=== PATIENT | male | born 1965 | race Caucasian/White ===

== ENCOUNTER 2018-09-14 08:35 | Inpatient (IN) ==
[2018-09-14] MEDS ORDERED: NS 2,000 ML ONE (09:01)
[2018-09-14] MEDS ORDERED: ASPIRIN PO ONE (09:02)
[2018-09-14] MEDS ORDERED: NS 1,000 ML IV ONE ×2 (09:04→12:59)
[2018-09-14 09:18] LABS: BASO# 0.03 X1000 (0.0-0.2); BASO% 0.2 % (0.0-0.8); EOS# 0.03 X1000 (0.0-0.7); EOS% 0.2 % (0.0-10.0); HEMATOCRIT 36.3 % (42.0-52.0); HEMOGLOBIN 11.9 g/dL (14.0-18.0); IMM GRAN# 0.06 X1000 (0.0-0.04); IMM GRAN% 0.3 % (0.0-0.5); LYMPH# 1.77 X1000 (1.2-3.4); LYMPH% 10.3 % (20.5-51.1); MCH 28.6 PG (27-31); MCHC 32.8 g/dL (33-37); MCV 87.3 FL (81-99); MONO# 1.58 X1000 (0.11-0.59); MONO% 9.2 % (1.7-9.3); MPV 8.8 FL (7.4-10.4); NEUT# 13.68 X1000 (1.4-6.5); NEUT% 79.8 % (42.2-75.2); PLT 281 X1000 (130-400); RBC 4.16 XMIL (4.7-6.1); RDW 12.9 % (11.5-14.5); WBC 17.15 X1000 (4.8-10.8)
[2018-09-14 09:20] LABS: ALLEN TEST YES; BE -2.5 mmoll (-3.0-3.0); BLOOD TYPE ARTERIAL; HCO3-(ACT) 22.9 mmoll (20.0-26.0); O2HB 94.2 % (95.0-99.0); PCO2(98.6) 34 mmHg (35-45); PO2(98.6) 103 mmHg (60-100); SAMPLE BLOOD; SAO2 99.5 % (95.0-100.0); pH(98.6) 7.41 (7.35-7.45)
[2018-09-14 09:21] LABS: MODALITY PRB
[2018-09-14 09:28] LABS: INR 1.13; PROTIME 15.5 Seconds (11.0-16.0)
[2018-09-14 09:29] LABS: PTT 35.9 Seconds (22.3-41.8)
[2018-09-14 09:37] LABS: AGAP 14; ALB/GLOB RATIO 1.5; ALBUMIN 3.8 g/dL (3.5-5.0); ALKALINE PHOSPHATASE 90 U/L (32-122); BUN 16 mg/dL (8-22); CALCIUM 8.2 mg/dL (8.8-10.2); CHLORIDE 99 mmol/L (98-107); CK PROFILE 101 U/L (24-204); COSMO 270; CREATININE 1.2 mg/dL (0.7-1.2); ESTIMATED GFR > 60; GLUCOSE 104 mg/dL (70-104); GOT 28 U/L (10-34); GPT 9 U/L (10-44); MAGNESIUM 1.9 mg/dL (1.5-2.7); POTASSIUM 4.1 mmol/L (3.5-5.1); SODIUM 134 mmol/L (136-145); TCO2 21 mmol/L (25-35); TOTAL BILIRUBIN 0.69 mg/dL (0.20-1.00); TOTAL PROTEIN 6.4 g/dL (6.3-8.3)
--- NOTE | 2018-09-14 10:52 | EKG Report ---
Test Performed on : 09/14/2018 08:44:37 AM Test Reason : left chest pain, SOB Blood Pressure : / mmHG Vent. Rate : 078 BPM Atrial Rate : 078 BPM P-R Int : 118 ms QRS Dur : 090 ms QT Int : 418 ms P-R-T Axes : 047 -01 011 degrees QTc Int : 476 ms Normal sinus rhythm. Nonspecific ST abnormality Abnormal ECG When compared with ECG of 29-MAR-2018 18:28, No significant change was found Unconfirmed Result
--- NOTE | 2018-09-14 11:02 | Diag Imaging Result Doc PS360 ---
EXAM: CHEST-1 VIEW HISTORY: hypoxemia, dyspnea TECHNIQUE: Chest single view 03/29/2018 COMPARISON: None. FINDINGS: The lungs are well expanded. There are infiltrates in the mid and lower lungs. No cardiomegaly. No pleural effusions identified. Old fracture to the posterior right eighth rib. IMPRESSION: Lower lobe pneumonia. Follow-up PA and lateral recommended. Electronically signed by Markus Joiner 09/14/2018 11:00 AM
--- NOTE | 2018-09-14 11:13 | Diag Imaging Result Doc PS360 ---
EXAM: CT ANGIOGRM PULMONARY ARTERIES 09/14/2018 HISTORY: sudden CP, dyspnea, hypoxemia TECHNIQUE: This exam was performed using automated exposure control, adjustment of mA or kV according to patient size, and/or use of iterative reconstruction technique. COMMENT: 3-D MIPS were performed. There is some motion artifact. There are no central pulmonary arterial filling defects. There are patchy groundglass and interstitial opacities throughout both lungs consistent with pulmonary edema. There are coronary calcifications particularly in the left anterior descending artery. The possibility of pneumonia cannot be excluded. There are some emphysematous changes particularly in the right upper lobe. There is a partially calcified nodule in the right upper lobe on image 70 measuring 16 mm in diameter. There are no previous CT examinations however this nodule was apparently present on the previous chest radiograph of 07/10/2017. There are some nonspecific appearing prevascular nodes some of which exceeds 12 mm in diameter. There is right paratracheal and aorticopulmonary window adenopathy as well as enlarged nodes in both shani and the subcarina. One right paratracheal node measures over 2.2 cm on image 53. There is no evidence of acute disease in the visualized portion of the abdomen. There is an ununited fracture of the posterior right eighth rib. There are some degenerative disc changes in the thoracic spine. IMPRESSION: Pulmonary edema plus minus pneumonia. Mediastinal and hilar adenopathy. The possibility of an atypical pneumonia should be considered. Electronically signed by Shay Sinha 09/14/2018 11:10 AM
[2018-09-14] MEDS ORDERED: LEVAQUIN 500 MG/D5W 500 MG/100 ML IVPB IV ONE (12:10)
--- NOTE | 2018-09-14 12:59 | PROVIDER DOCUMENTATION ---
This chart was entered by Kathy Helton Scribe, acting as scribe for Carlos Claudio MD. HPI-Respiratory General - General Chief Complaint: Shortness of Breath Stated Complaint: CANT BREATH Time Seen by Provider: 09/14/18 08:53 Source: patient Allergies/Adverse Reactions: Patient Allergies Allergy/AdvReac Type Severity Reaction Status Date / Time Penicillins Allergy Severe ANAPHYLAXIS Verified 03/29/18 19:47 Sulfa (Sulfonamide Allergy Intermediate SWELLING Verified 03/29/18 19:47 Antibiotics) Home Medications: Home Medication List Medication Instructions Recorded Confirmed Last Taken Type Buprenorphine HCl/Naloxone HCl 1 film PO BID 07/10/17 03/29/18 03/29/18 07:30 History [Suboxone 8 mg/2 mg Sl Film] Lamotrigine 100 mg PO DAILY 07/10/17 03/29/18 03/29/18 07:30 History Lisinopril 20 mg PO DAILY 07/10/17 03/29/18 03/29/18 07:30 History Clonazepam 1 mg PO DAILY 03/29/18 03/29/18 03/28/18 History Fluoxetine HCl 60 mg PO DAILY 03/29/18 03/29/18 03/29/18 07:30 History Gabapentin 800 mg PO 4XDAY 03/29/18 03/29/18 03/29/18 07:30 History Hydroxyzine [Atarax] 50 mg PO BID 03/29/18 03/29/18 03/29/18 07:30 History Olanzapine 15 mg PO HS PRN PRN 03/29/18 03/29/18 03/25/18 History - History of Present Illness-Resp Nature of Presenting Problem: Patient is a 53 year old male who presents with shortness of breath and left posterior shoulder pain that started this morning. Denies history of heart and lung disease. Patient had a recent brain MRI done which resulted as normal. Patient does not report chest pain. Quality of Pain: reports: tightness Severity in ED: reports: mild Onset/Duration: reports: this morning Timing: reports: still present Cough Quality/Degree: reports: no cough Current Respiratory Medication Therapy: Initiated see nurses note Associated Symptoms: reports: shortness of breath, other (left posterior s houlder pain) Similar Symptoms Previously?: No Recently seen or treated by another doctor?: No Review of Systems - Adult - REVIEW OF SYSTEMS - ADULT Constitutional: reports: no symptoms reported. denies: chills, fever, fatique Eyes: reports: no symptoms reported Ears, Nose, Mouth & Throat: reports: no symptoms reported Cardiovascular: reports: no symptoms reported. denies: chest pain, heart murmur, irregular heart rate Respiratory: reports: see HPI, shortness of breath. denies: cough, wheezing Gastrointestinal: reports: no symptoms reported Genitourinary: reports: no symptoms reported Musculoskeletal: reports: see HPI, other (left posterior shoulder pain). den ies: back pain, muscle aches, neck pain Integumentary: reports: no symptoms reported Neurological: reports: no symptoms reported Psychiatric: reports: no symptoms reported Endocrine: reports: no symptoms reported Hematologic/Lymphatic: reports: no symptoms reported Allergic/Immunologic: reports: no symptoms reported All Other Systems: Reviewed and Negative Past History - Adult - PAST MEDICAL HISTORY-ADULT Review of Records: reports: Nursing Assessment Review, Medications Reviewed, Social history reviewed & non-contributory. Major Childhood Illnesses: reports: denies history Cardiovascular: reports: HTN Respiratory: reports: denies history Gastrointestinal: reports: GERD Obstetrical/Gynecological: reports: denies history Genitourinary: reports: denies history Musculoskeletal: reports: chronic pain, denies history Neurological: reports: headaches/migraines Psychiatric: reports: bipolar, depression Endocrine/Immune: reports: denies history Other Conditions: reports: denies history - PRIOR SURGERIES/PROCEDURES Surgical/Procedure History: reports: tonsillectomy, orthopedic (extremity) (shoulder), other (arthroscopy) - IMMUNIZATION STATUS Childhood Immunizations: See Nurse Assessment Flu Vaccine: See Nurse Assessment - FAMILY HISTORY Family History: reviewed, not pertinent - SOCIAL HISTORY Smoking: cigarettes, greater than 1 pack/day Provider spent 3-5 mins advising pt. on dangers of tobacco.: Discussed manners to quit use, and f/u contacts for add'l counseling. Substance Use: denies Living Situation: family Physical Exam-General - PHYSICAL EXAM-ADULT Initial Vital Signs Reviewed: Yes - CONSTITUTIONAL General Appearance: appears well, alert, no apparent distress. negative: lethargic, slow to respond - RESPIRATORY Respiratory: chest non-tender, lungs clear, normal breath sounds. negative: crackles, rhonchi - CARDIOVASCULAR Cardiovascular: normal peripheral pulses, regular rate, rhythm. negative: tachycardia, systolic murmur - GASTROINTESTINAL (ABDOMEN) Abdominal Exam: normal bowel sounds, non tender, soft. negative: guarding, rebound - MUSCULOSKELETAL Extremity: non-tender, normal inspection. negative: deformity, erythema, swelling - SKIN Integumentary: normal color, normal turgor, warm/dry. negative: cyanosis, ecc hymosis, erythema, jaundice - NEUROLOGIC Neurologic: grossly normal - PSYCHIATRIC Psych/Mental Status: normal mood/affect, oriented x 3. negative: paranoid, tearful Progress - PLAN OF CARE/RESULTS Progress/Plan/Lab Results: Vital Signs - 8 hr 09/14/18 08:50 09/14/18 08:58 09/14/18 09:05 Pulse Rate 84 92 H 90 Respiratory Rate 20 28 H 22 Blood Pressure 71/45 68/42 68/42 O2 Sat by Pulse Oximetry 73 L 91 L 90 L 09/14/18 09:06 09/14/18 09:18 09/14/18 09:20 Pulse Rate 83 85 Respiratory Rate 23 17 19 Blood Pressure 74/41 O2 Sat by Pulse Oximetry 92 L 93 L 93 L 09/14/18 09:25 09/14/18 09:30 09/14/18 09:31 Pulse Rate 88 82 97 H Respiratory Rate 20 27 H 22 Blood Pressure 74/41 69/46 73/52 O2 Sat by Pulse Oximetry 93 L 88 L 09/14/18 09:32 09/14/18 09:33 09/14/18 09:36 Pulse Rate 89 91 H 80 Respiratory Rate 17 27 H 17 Blood Pressure 72/52 66/38 O2 Sat by Pulse Oximetry 91 L 91 L 92 L 09/14/18 09:40 09/14/18 09:41 09/14/18 09:46 Pulse Rate 84 82 91 H Respiratory Rate 18 17 25 H Blood Pressure 73/45 74/47 O2 Sat by Pulse Oximetry 92 L 95 94 L 09/14/18 10:01 09/14/18 11:01 09/14/18 11:25 Pulse Rate 73 90 76 Respiratory Rate 18 23 17 Blood Pressure 73/42 66/43 76/45 O2 Sat by Pulse Oximetry 97 95 93 L Laboratory Results - last 24 hr 09/14/18 09/14/18 09/14/18 08:54 08:54 08:54 WBC 17.15 H RBC 4.16 L Hgb 11.9 L Hct 36.3 L MCV 87.3 MCH 28.6 MCHC 32.8 L RDW Std Deviation 12.9 Plt Count 281 MPV 8.8 Immature Gran % (Auto) 0.3 Neut % (Auto) 79.8 H Lymph % (Auto) 10.3 L [place] % (Auto) 9.2 Eos % (Auto) 0.2 Baso % (Auto) 0.2 Immature Gran # (Auto) 0.06 H Neut # (Auto) 13.68 H Lymph # (Auto) 1.77 [place] # (Auto) 1.58 H Eos # (Auto) 0.03 Baso # (Auto) 0.03 PT INR PTT (Actin FS) Specimen Type Sample Site pH pCO2 pO2 HCO3 Base Excess Oxyhemoglobin ABG O2 Sat (Calculated) ABG O2 Saturation ABG Carboxyhemoglobin ABG Methemoglobin Rj Test A-a O2 Difference Total Hemoglobin Lactate Liter Flow Blood Gas Modality FiO2 % Sodium 134 L Potassium 4.1 Chloride 99 Carbon Dioxide 21 L Anion Gap 14 BUN 16 Creatinine 1.2 Estimated GFR/1.73 m2 > 60 BUN/Creatinine Ratio 13 Glucose 104 POC Glucose Calculated Osmolality 270 Calcium 8.2 L Magnesium 1.9 Total Bilirubin 0.69 AST 28 ALT 9 L Alkaline Phosphatase 90 Creatine Kinase 101 Troponin T Szc-[id number]-Jwfiabcrwrs Pept 853 H Total Protein 6.4 Albumin 3.8 Globulin 2.6 Albumin/Globulin Ratio 1.5 Plasma/Serum Ethyl Alc 09/14/18 09/14/18 09/14/18 08:54 08:54 08:54 WBC RBC Hgb Hct MCV MCH MCHC RDW Std Deviation Plt Count MPV Immature Gran % (Auto) Neut % (Auto) Lymph % (Auto) [place] % (Auto) Eos % (Auto) Baso % (Auto) Immature Gran # (Auto) Neut # (Auto) Lymph # (Auto) [place] # (Auto) Eos # (Auto) Baso # (Auto) PT 15.5 INR 1.13 PTT (Actin FS) 35.9 Specimen Type Sample Site pH pCO2 pO2 HCO3 Base Excess Oxyhemoglobin ABG O2 Sat (Calculated) ABG O2 Saturation ABG Carboxyhemoglobin ABG Methemoglobin Rj Test A-a O2 Difference Total Hemoglobin Lactate Liter Flow Blood Gas Modality FiO2 % Sodium Potassium Chloride Carbon Dioxide Anion Gap BUN Creatinine Estimated GFR/1.73 m2 BUN/Creatinine Ratio Glucose POC Glucose Calculated Osmolality Calcium Magnesium Total Bilirubin AST ALT Alkaline Phosphatase Creatine Kinase Troponin T < 0.010 Qyj-X-Ztpelealket Pept Total Protein Albumin Globulin Albumin/Globulin Ratio Plasma/Serum Ethyl Alc 09/14/18 09/14/18 08:55 09:00 WBC RBC Hgb Hct MCV MCH MCHC RDW Std Deviation Plt Count MPV Immature Gran % (Auto) Neut % (Auto) Lymph % (Auto) [place] % (Auto) Eos % (Auto) Baso % (Auto) Immature Gran # (Auto) Neut # (Auto) Lymph # (Auto) [place] # (Auto) Eos # (Auto) Baso # (Auto) PT INR PTT (Actin FS) Specimen Type ARTERIAL Sample Site R RADIAL pH 7.41 pCO2 34 L pO2 103 H HCO3 22.9 Base Excess -2.5 Oxyhemoglobin 94.2 L ABG O2 Sat (Calculated) 16.0 ABG O2 Saturation 99.5 ABG Carboxyhemoglobin 4.30 H ABG Methemoglobin 1.0 Rj Test YES A-a O2 Difference 425.0 Total Hemoglobin 12.0 Lactate 1.20 Liter Flow 15.0 Blood Gas Modality PRB FiO2 % 80.0 Sodium Potassium Chloride Carbon Dioxide Anion Gap BUN Creatinine Estimated GFR/1.73 m2 BUN/Creatinine Ratio Glucose POC Glucose 117 H Calculated Osmolality Calcium Magnesium Total Bilirubin AST ALT Alkaline Phosphatase Creatine Kinase Troponin T [id number]-Ibspbaojrwf Pept Total Protein Albumin Globulin Albumin/Globulin Ratio Plasma/Serum Ethyl Alc Orders Category Date Time Status Cardiac Monitoring DIRECTED Care 09/14/18 09:02 Active Oxygen Therapy- ED Nursing DIRECTED Care 09/14/18 09:02 Active Saline Loc NOW Care 09/14/18 09:02 Active CHEST-1 VIEW [RAD] Stat Exams 09/14/18 10:[address] ANGIOGRM PULMONARY ARTERIES [CT] Stat Exams 09/14/18 10:15 Completed ABG [RESP] Routine Lab 09/14/18 09:00 Completed ALCOHOL BLOOD Stat Lab 09/14/18 08:54 Completed BLOOD CULTURE [BLDCUL] Stat Lab 09/14/18 12:10 Uncollected CBC WITH ELECTRONIC DIFF [HEME] Stat Lab 09/14/18 08:54 Completed CK PROFILE [SP CHEM] Stat Lab 09/14/18 08:54 Completed COMPREHENSIVE METABOLIC PANEL [CHEM] Stat Lab 09/14/18 08:54 Completed LACTATE, PLASMA [CHEM] Stat Lab 09/14/18 12:10 Uncollected MAGNESIUM [CHEM] Stat Lab 09/14/18 08:54 Completed PRO B-NATRIURETIC PEPTIDE Stat Lab 09/14/18 08:54 Completed PROTIME WITH INR [COAG] Stat Lab 09/14/18 08:54 Completed PTT [COAG] Stat Lab 09/14/18 08:54 Completed TROPONIN T Stat Lab 09/14/18 08:54 Completed URINALYSIS W/POSS RFLX CULT [URINALYSIS] Stat Lab 09/14/18 09:04 Uncollected URINE DRUG SCREEN Stat Lab 09/14/18 09:04 Uncollected 0.9% Sodium Chloride Inj [Ns] 1,000 ml Med 09/14/18 09:01 Discontinued .ROUTE As directed 0.9% Sodium Chloride Inj [Ns] 1,000 ml Med 09/14/18 09:04 Discontinued IV 999 mls/hr Aspirin Med 09/14/18 09:02 Discontinued 325 mg PO NOW ONE Levofloxacin 500 mg/D5w [Levaquin 500 mg/D5w] Med 09/14/18 12:10 Active 500 mg in 100 ml IV NOW CP/SOB/Palp >45 yrs of Age Stat Oth 09/14/18 09:02 Ordered EKG [EKG] Stat Ther 09/14/18 09:02 Draft Result Diagrams: 09/14/18 08:54 09/14/18 08:54 - EKG 1 Time of EKG reading by physician:: 08:44 EKG Read and Signed by:: Carlos Claudio EKG Interpretation (*Must complete 3 of following elements*): Abnormal Rate: 78 Rhythm: normal sinus rhythm WA Interval: normal Comments: nonspecific ST abnormality. - XRAY 1 XRAY Study: Chest Impression: See EMR Report (EXAM: CHEST-1 VIEW HISTORY: hypoxemia, dyspnea TECHNIQUE: Chest single view 03/29/2018 COMPARISON: None. FINDINGS: The lungs are well expanded. There are infiltrates in the mid and lower lungs. No cardiomegaly. No pleural effusions identified. Old fracture to the posterior right eighth rib. IMPRESSION: Lower lobe pneumonia. Follow-up PA and lateral recommended. Electronically signed by Markus Jonier 09/14/2018 11:00 AM 09/14/18 1100 Interpreting Physician: Markus Joiner MD Dictated Date/Time: 09/14/18 1058 cc: Carlos Claudio MD; Rell Singh MD) - CT/MRI 1 CT Study: Angiogram Impression: See EMR Report ( EXAM: CT ANGIOGRM PULMONARY ARTERIES 09/14/2018 HISTORY: sudden CP, dyspnea, hypoxemia TECHNIQUE: This exam was performed using automated exposure control, adjustment of mA or kV according to patient size, and/or use of iterative reconstruction technique. COMMENT: 3-D MIPS were performed. There is some motion artifact. There are no central pulmonary arterial filling defects. There are patchy groundglass and interstitial opacities throughout both lungs consistent with pulmonary edema. There are coronary calcifications particularly in the left anterior descending artery. The possibility of pneumonia cannot be excluded. There are some emphysematous changes particularly in the right upper lobe. There is a partially calcified nodule in the right upper lobe on image 70 measuring 16 mm in diameter. There are no previous CT examinations however this nodule was apparently present on the previous chest radiograph of 07/10/2017. There are some nonspecific appearing prevascular nodes some of which exceeds 12 mm in diameter. There is right paratracheal and aorticopulmonary window adenopathy as well as enlarged nodes in both shani and the subcarina. One right paratracheal node measures over 2.2 cm on image 53. There is no evidence of acute disease in the visualized portion of the abdomen. There is an ununited fracture of the posterior right eighth rib. There are some degenerative disc changes in the thoracic spine. IMPRESSION: Pulmonary edema plus minus pneumonia. Mediastinal and hilar adenopathy. The possibility of an atypical pneumonia should be considered. Electronically signed by Shay Sinha 09/14/2018 11:10 AM 09/14/18 1110 Interpreting Physician: Shay Sinha MD Dictated Date/Time: 09/14/18 1105 cc: Carlos Claudio MD; Rell Singh MD) - CONSULTS/PCP/HOSPITALIST Notification #1 *Consult/PCP/Hospitalist*: SONJA Castillo for Hospitalist Time Discussed: 12:35 Reason/Comments: Dr. Claudio consulted with Anna about patient. Consult Disposition: Admit Departure - Departure Date of Disposition Decision: 09/14/18 Time of Disposition Decision: 12:35 DIAGNOSIS: Left lower lobe pneumonia Disposition: ADMITTED INPATIENT 09 Certified Medical Emergency: Emergent Condition: Stable Referrals and Follow-Ups: Rell Singh MD [Primary Care Provider] - - Critical Care Note This patient required my direct & personal management of CC.: Yes Total Time (mins): 31 Critical Care Statement: This patient required my direct personal management to treat or rule out processes, the absence of which, could potentiallly result in sudden, clinically significant life or limb threatening deterioration. Attestation - Physician/ VIN Attestation The physician spent face to face time with patient:: Yes Advanced Practice Provider documentation review:: Supervising physician onsite and consulted in the evaluation and care of this patient. The physician did have a face to face encounter with the patient. This chart was documented by the indicated scribe, (Kathy Helton Scribe) and accurately reflects the services I performed and decisions made by me, Carlos Claudio MD, as attested by the provider's signature.
[2018-09-14 13:32] LABS: URINE SOURCE CLEAN CATCH
[2018-09-14 13:40] LABS: BILIRUBIN URINE NEGATIVE (NEGATIVE); BLOOD URINE SMALL (NEGATIVE); COLOR YELLOW; GLUCOSE URINE NEGATIVE (NEGATIVE); KETONE URINE NEGATIVE (NEGATIVE); LEUKOCYTES URINE SMALL (NEGATIVE); NITRITE URINE NEGATIVE (NEGATIVE); PH URINE 5.5; PROTEIN URINE TRACE mg/dL (NEGATIVE); SP GRAVITY URINE 1.044; TURBIDITY URINE CLEAR (CLEAR); UROBILINOGEN URINE NORMAL (NORMAL)
[2018-09-14 13:41] LABS: UR EPITHELIAL CELLS <10 /HPF (<10); URINE BACTERIA NEGATIVE /HPF; URINE WBC <10 /HPF (<10)
[2018-09-14 14:08] LABS: UR AMPHETAMINES QUAL NONE DETECTED (NONE DETECT); UR BARBITUATES QUAL NONE DETECTED (NONE DETECT); UR BENZODIAZEPIN QUAL NONE DETECTED (NONE DETECT); UR CANNABINOIDS QUAL NONE DETECTED (NONE DETECT); UR COCAINE QUAL NONE DETECTED (NONE DETECT); UR METHADONE QUAL NONE DETECTED (NONE DETECT); UR OPIATES QUAL NONE DETECTED (NONE DETECT); UR OXYCODONE QUAL NONE DETECTED (NONE DETECT); UR PCP QUAL NONE DETECTED (NONE DETECT)
--- NOTE | 2018-09-14 14:40 | HISTORY AND PHYSICAL ---
PRIMARY CARE PHYSICIAN: Dr. Rell Singh. CHIEF COMPLAINT: Sudden onset of shortness of breath that began this morning. Also noted he had a fall yesterday with some posterior left shoulder pain. HISTORY OF PRESENTING ILLNESS: This is a 53-year-old male who is sitting on the end of the bed and answering questions appropriately, presents to [facility] with complaints of a sudden onset of shortness of breath that began today. States yesterday he had some lightheadedness and felt "wobbly" and had a fall and now states he has some left posterior shoulder pain. When he arrived to the emergency room his blood pressure was 71/45. He was saturating 73% on room air. His white blood cell count was 17.15. Serum alcohol level showed none detected. We did a chest x-ray that showed left lower lobe pneumonia. We did go ahead and do a pulmonary arteriogram that showed pulmonary edema plus minus pneumonia. The possibility of atypical pneumonia should be considered. He has received 1 L of normal saline bolus and currently his blood pressure remains low at 76/45 so he will receive another liter of normal saline and will be admitted for further evaluation and treatment. PAST MEDICAL HISTORY: Of depression, opioid addiction, GERD and hypertension. PAST SURGICAL HISTORY: A right rotator cuff repair and a tonsillectomy. FAMILY HISTORY: Reviewed and noncontributory. SOCIAL HISTORY: Currently lives with family. Smokes a pack of cigarettes a day and has done so for approximately 40 years and denies any alcohol or illicit drug use. ALLERGIES: Penicillin and sulfa drugs. HOME MEDICATIONS: A current list will need to be obtained, reviewed and restarted as appropriate. We will place an order for nursing to update and confirm home medications. LABORATORY DATA: Showed a white blood cell count of 17.15, a hemoglobin of 11.9, hematocrit 36.3, platelets 281,000, PT and INR of 15.5 and 1.13. ABG with a pH of 7.41, pCO2 34, PO2 103, bicarb 22.9 and this was on a 50% partial rebreather. Sodium of 134, potassium 4.1, chloride 99, CO2 21, BUN of 16, creatinine 1.2, glucose 104, magnesium 1.9. Cardiac enzyme was negative. ProBNP of 853 . Serum plasma alcohol level showed none detected. Chest x-ray showed bilateral lower lobe pneumonia and pulmonary arteriogram showed pulmonary edema plus or minus pneumonia, mediastinal and hilar adenopathy and the possibility of an atypical pneumonia should be considered. REVIEW OF SYSTEMS: He denied any fever, chills, blurred vision, dizziness. He did state he had some lightheadedness and feeling "wobbly" yesterday. Denied any chest pain, coughing. He was positive for shortness of breath. He denied any abdominal pain, constipation, diarrhea, burning or hurting with urination. PHYSICAL EXAMINATION: On arrival he had a pulse of 84, respirations 20, blood pressure 71/45, saturating 73% on room air. Currently his blood pressure is 76/45 and he saturating 93% on a nonrebreather. GENERAL: This is a 53-year-old male who is sitting on the side of the bed and answers questions appropriately. HEENT: Normocephalic, atraumatic. Normal ENT inspection. Oropharynx and nares are clear. Pupils are equal, round, and reactive to light and accommodation. Extraocular movements are intact. NECK: Normal inspection, normal range of motion. LUNGS: With decreased breath sounds to bilateral bases but equal lung expansion, chest wall movement noted. HEART: Regular rate and rhythm. No murmurs, rubs, or gallops. ABDOMEN: Soft, nontender, nondistended. Bowel sounds are present x4 quadrants. MUSCULOSKELETAL: He has 5/5 strength x4 extremities. NEUROLOGICAL: The cranial nerves 2-12 appear grossly intact. ASSESSMENT: 1. Bilateral pneumonia. 2. An acute hypoxic respiratory failure. 3. Leukocytosis secondary to #1. 4. Hypotension. 5. Tobacco abuse. PLAN: He will be admitted to intensive care unit [facility]. Will place him on O2 per protocol, DuoNeb q.4 hours, Levaquin 500 mg IV q.24, normal saline at 150 mL an hour. Apply SCDs for DVT prophylaxis. Healthy heart diet, incentive spirometry, telemetry. We need to update and confirm home medications and then will review and restart as appropriate. He has a plasma lactate that is pending, a urinalysis that is pending and a urine drug screen that is pending at this time. Further orders after being seen by attending. Dictated by SONJA Callahan for Lizandro Garrison MD cc: MD Lizandro Dickson MD
[2018-09-14] MEDS ORDERED: NS 1,000 ML IV SCH (15:35)
[2018-09-14 16:14] LABS: BASO# 0.04 X1000 (0.0-0.2); BASO% 0.2 % (0.0-0.8); EOS# 0.14 X1000 (0.0-0.7); EOS% 0.8 % (0.0-10.0); HEMATOCRIT 36.7 % (42.0-52.0); HEMOGLOBIN 11.8 g/dL (14.0-18.0); IMM GRAN# 0.08 X1000 (0.0-0.04); IMM GRAN% 0.5 % (0.0-0.5); LYMPH# 2.06 X1000 (1.2-3.4); LYMPH% 12.4 % (20.5-51.1); MCH 28.8 PG (27-31); MCHC 32.2 g/dL (33-37); MCV 89.5 FL (81-99); MONO# 1.48 X1000 (0.11-0.59); MONO% 8.9 % (1.7-9.3); MPV 8.7 FL (7.4-10.4); NEUT# 12.85 X1000 (1.4-6.5); NEUT% 77.2 % (42.2-75.2); PLT 249 X1000 (130-400); RDW 13.2 % (11.5-14.5); WBC 16.65 X1000 (4.8-10.8)
[2018-09-14] MEDS: DUONEB (A & A) INH SCH ×3 (16:15→23:30)
[2018-09-14 16:34] LABS: AGAP 8; BUN 16 mg/dL (8-22); CALCIUM 8.2 mg/dL (8.8-10.2); CHLORIDE 102 mmol/L (98-107); COSMO 270; CREATININE 1.1 mg/dL (0.7-1.2); ESTIMATED GFR > 60; GLUCOSE 104 mg/dL (70-104); POTASSIUM 4.6 mmol/L (3.5-5.1); SODIUM 134 mmol/L (136-145); TCO2 24 mmol/L (25-35)
[2018-09-14] MEDS ORDERED: VANCOMYCIN IV PER PHARMACY MISC SCH (17:30)
--- NOTE | 2018-09-14 17:57 | HISTORY AND PHYSICAL ---
ADDENDUM: Presented to the emergency department this morning because of acute onset of shortness of breath. Upon presentation he was found to have O2 saturation of 73% on room air. Mr. Baker is a chronic smoker smokes about 2 packs per day for the past 30 years. I have reviewed all his clinical data and agree with the history and physical dictated by the nurse practitioner and the plan reflects my opinion discussed with her. Briefly Mr. Baker' physical exam shows blood pressure is 87/45, pulse is 80, respiration is 20, temperature is not charted here yet. OBJECTIVE: Mr. Baker 53-year-old gentleman he was in bed, he was in mild respiratory distress, he has a non-rebreather for oxygenation .Chest: Air entry is bilaterally reduced. There is mild prolonged expiratory phase of respiration did not really hear any wheezing or rhonchi. Patient does have barrel chest. Cardiovascular: Regular rate and rhythm. No murmurs, no rubs, no gallops. Abdomen: Is soft . Extremities: No pedal edema. MANUFACTURING TECH: Patient is awake, alert, oriented and follows basic commands. Patient laboratory data WBC is 16.65, hemoglobin is 11.8, platelet count of 249,000. Chemistry is also reviewed. Sodium is 134, rest of chemistry is completely unremarkable. Patient pro B is 854. An EKG shows a normal sinus rhythm with a rate of about 78, normal axis, no ST- segment or T-waves abnormality. A CT scan of the chest show pulmonary edema plus minus pneumonia however there is a patchy ground- glass and interstitial opacity throughout both lungs consistent with pulmonary edema. A chest x- ray did show lower lobe pneumonia. ASSESSMENT: 1. Acute hypoxemic respiratory failure. 2. Bilateral interstitial ground-glass opacities concerning for smoking-related interstitial pneumonia. Patient will be started on steroid and Pulmonary Medicine will be consulted. 3. Suspected chronic obstructive pulmonary disease, patient will be on adequate antibiotics, steroid and nebulization. 4. Persistent hypotension, patient lactate is normal. Will check his TSH and his cortisol level, will continue with adequate IV fluids, patient will be admitted to the ICU for overnight. 5. Ongoing tobacco abuse. Patient has been counseled on cessation. So in general Mr. Baker will be admitted to the ICU, will continue with the current antibiotics. He is allergic to penicillin so I have chosen aztreonam and also added vancomycin, will also add steroids and get Pulmonary Medicine to see him. I have ordered an echocardiogram to rule out any possible underlying heart failure. cc: Lizandro Garrison MD MTDD
[2018-09-14] MEDS: SOLU-MEDROL IV SCH (19:38)
[2018-09-14] MEDS: NS 1,000 ML IV SCH (19:45)
[2018-09-14] MEDS: AZACTAM 1 GM in NS 50 ML IV SCH (19:50)
[2018-09-14] MEDS ORDERED: VANCOMYCIN 2,300 MG in NS 500 ML IV ONE (20:00)
[2018-09-15] MEDS: SOLU-MEDROL IV SCH ×3 (01:56→17:43)
[2018-09-15 05:23] LABS: BASO# 0.01 X1000 (0.0-0.2); BASO% 0.1 % (0.0-0.8); HEMATOCRIT 34.6 % (42.0-52.0); HEMOGLOBIN 10.9 g/dL (14.0-18.0); IMM GRAN# 0.04 X1000 (0.0-0.04); IMM GRAN% 0.3 % (0.0-0.5); LYMPH# 0.57 X1000 (1.2-3.4); LYMPH% 4.6 % (20.5-51.1); MCH 28.4 PG (27-31); MCHC 31.5 g/dL (33-37); MCV 90.1 FL (81-99); MONO# 0.81 X1000 (0.11-0.59); MONO% 6.5 % (1.7-9.3); NEUT# 11.08 X1000 (1.4-6.5); NEUT% 88.5 % (42.2-75.2); PLT 243 X1000 (130-400); RBC 3.84 XMIL (4.7-6.1); RDW 13.2 % (11.5-14.5); WBC 12.51 X1000 (4.8-10.8)
[2018-09-15 05:36] LABS: AGAP 7; ALBUMIN 3.2 g/dL (3.5-5.0); BUN 11 mg/dL (8-22); CALCIUM 8.4 mg/dL (8.8-10.2); CHLORIDE 106 mmol/L (98-107); COSMO 277; CREATININE 0.8 mg/dL (0.7-1.2); ESTIMATED GFR > 60; GLUCOSE 172 mg/dL (70-104); LYMPHS 8 % (21-51); MONO 6 % (1-9); PHOSPHORUS 2.1 mg/dL (2.7-4.5); POTASSIUM 5.1 mmol/L (3.5-5.1); SEGS 86 % (42-75); SODIUM 137 mmol/L (136-145); TCO2 24 mmol/L (25-35)
[2018-09-15] MEDS: DUONEB (A & A) INH SCH ×5 (07:25→23:44)
[2018-09-15] MEDS: AZACTAM 1 GM in NS 50 ML IV SCH ×4 (07:27→23:56)
[2018-09-15] MEDS: NS 1,000 ML IV SCH ×2 (07:30→18:42)
[2018-09-15] MEDS ORDERED: TUMS EXTRA STRENGTH PO ONE (11:35)
[2018-09-15] MEDS: LEVAQUIN 500 MG/D5W 500 MG/100 ML IVPB IV SCH (11:50)
--- NOTE | 2018-09-15 12:44 | ECHO REPORT ---
ORDER DATE: 09/14/2018 INTERPRETING PHYSICIAN: Dr. Tate Card. ECHOCARDIOGRAPHIC MEASUREMENTS: Interventricular septum: 0.9 cm. Left ventricular posterior wall: 0.9 cm. Diastolic diameter: 6.0 cm. Left ventricular systolic diameter: 4.1 cm. Left atrium: 4.5 cm. Aorta: 3.6 cm. SUMMARY OF THE 2-DIMENSIONAL IMAGIN. Left ventricle was mildly enlarged. 2. Optison was used to assess left ventricular systolic function. 3. Left ventricular ejection fraction estimated at 60-65%. 4. There is left atrial enlargement. 5. Aortic valve leaflets are trileaflet. 6. Pulmonic valve was normal. There is trace pulmonary regurgitation. 7. Tricuspid valve was normal. 8. Mitral valve was normal. 9. There is trace mitral regurgitation, trace to mild tricuspid regurgitation. Peak velocity across the tricuspid valve was 2.3 m/sec by Doppler studies. There is no aortic stenosis or regurgitation. 10. There is no pericardial effusion or obvious intracardiac mass or thrombus seen. 11. Technically suboptimal study. cc: MD Lizandro Neri MD
[2018-09-15] MEDS: VANCOMYCIN 1,650 MG in NS 250 ML IV SCH (14:21)
--- NOTE | 2018-09-15 18:00 | PROGRESS NOTE ---
DATE: 09/15/2018 Mr. Baker was admitted last night. He presented to the emergency room. He sees Dr. Rell Singh. Was admitted this morning with onset of shortness of breath. Said it came on all of a sudden. O2 saturations were 73% on room air. Chronic smoker, smokes 2 packs a day for over 30 years. His blood pressure was 87/45, pulse 80, respirations 20 so, appeared to be in acute hypoxemic respiratory failure with bilateral interstitial ground-glass opacities concerning for smoking-related interstitial pneumonia. Started on steroid. Pulmonary Medicine was consulted. Suspect COPD. The patient was put on some antibiotics, steroid, and nebulizer. With persistent hypotension wanted to check TSH and cortisol levels. He seemed to improve quite a bit after 12 hours with some fluids. Echocardiogram done. Left ventricle mildly enlarged. Left ventricular ejection fraction 60% to 65%. There is left atrial enlargement. Atrial valve leaflets are trileaflet. Pulmonic valve was normal. Tricuspid valve was normal. Mitral valve was normal. Trace mitral regurgitation. Trace mild tricuspid regurgitation. No aortic stenosis or regurgitation. No pericardial effusion. Chest x-ray: Lower lobe pneumonia, infiltrates in the mid and lower lungs. No cardiomegaly. He is doing a lot better. I saw him about 5 o'clock this evening, and he does not want to start back his Suboxone. He would like to start everything else back up. OBJECTIVE: His temperature is 97.9 degrees, pulse 80, respirations 20, blood pressure 129/75. Pupils are equal and round. Lungs are clear in all lung miller. Cardiovascular exam with regular rhythm and rate without murmur or S3. OUTPUT: Urine output was 1200 mL yesterday. He has had about 2000 mL out today. ASSESSMENT AND PLAN: 1. Acute hypoxemic respiratory failure. Seems to improve. 2. Bilateral interstitial ground-glass opacities concerning for smoking-related interstitial pneumonia. Treating him for pneumonia. 3. Suspect chronic obstructive pulmonary disease exacerbation. Continue steroids, antibiotics, nebulizers. 4. Persistent hypotension. This is improved with fluids. 5. Ongoing tobacco use. 6. Chronic pain syndrome. He has been on Suboxone. He does not want to restart his Suboxone, but I will put him back on his other home medications. cc: Rj Broderick MD
[2018-09-15] MEDS: TYLENOL PO PRN (18:56)
[2018-09-15] MEDS: ATARAX PO SCH (21:06)
[2018-09-15] MEDS: NEURONTIN PO SCH (21:06)
[2018-09-16] MEDS: SOLU-MEDROL IV SCH ×4 (00:04→16:18)
[2018-09-16] MEDS: TYLENOL PO PRN ×4 (00:09→22:34)
[2018-09-16] MEDS: DUONEB (A & A) INH SCH ×6 (00:15→23:31)
[2018-09-16] MEDS: AZACTAM 1 GM in NS 50 ML IV SCH ×3 (05:15→22:30)
[2018-09-16] MEDS: NS 1,000 ML IV SCH ×2 (05:15→17:59)
[2018-09-16] MEDS: NEURONTIN PO SCH ×4 (09:46→22:34)
[2018-09-16] MEDS: ATARAX PO SCH ×2 (09:46→22:34)
[2018-09-16] MEDS: PRINIVIL PO SCH (09:46)
[2018-09-16] MEDS: PROZAC PO SCH (09:46)
[2018-09-16] MEDS: KLONOPIN PO SCH (09:46)
[2018-09-16] MEDS: LAMICTAL PO SCH (09:46)
[2018-09-16] MEDS: VANCOMYCIN 1,650 MG in NS 250 ML IV SCH (09:47)
[2018-09-16] MEDS: LEVAQUIN 500 MG/D5W 500 MG/100 ML IVPB IV SCH (13:56)
--- NOTE | 2018-09-16 17:00 | PROGRESS NOTE ---
DATE: 09/16/2018 SUBJECTIVE: Mr. Baker is breathing better, feels better, and he is asking to go home. I think he would like to get the Venturi nasal O2. OBJECTIVE: He remains afebrile with temperature 98.1 degrees, pulse 80, respirations 18, blood pressure 132/70. Pupils are equal and round. Lungs are clear in all lung miller. Cardiovascular exam has regular rhythm and rate without murmur or S3. Abdomen is soft. Skin is warm and dry. URINE OUTPUT: 2200 mL. ASSESSMENT AND PLAN: 1. Acute hypoxemic respiratory failure which is improved. Continue his present nasal flow. 2. Bilateral interstitial ground-glass opacities related to probably smoking-related interstitial pneumonia. Continue present antibiotics. 3. Suspect chronic obstructive pulmonary disease exacerbation. Continue steroids and nebulizer and bronchodilators. 4. Persistent hypotension. 5. Ongoing tobacco use. 6. Chronic pain syndrome. He does not want to restart his Suboxone. I think his hope is to go home. See if we can get him set up for his oxygen. He had an echocardiogram on 09/14/2018. Left ventricle is mildly enlarged. Left ventricular ejection fraction of 60% to 65%. Left atrial enlargement. Aortic valve leaflets trileaflet. Pulmonic valve normal, tricuspid valve normal, mitral valve normal with trace mitral valve regurgitation. No pericardial effusion appreciated. cc: Rj Broderick MD
[2018-09-17] MEDS: VANCOMYCIN 1,650 MG in NS 250 ML IV SCH (01:48)
[2018-09-17] MEDS: SOLU-MEDROL IV SCH ×3 (01:51→17:05)
[2018-09-17] MEDS: TYLENOL PO PRN (05:48)
[2018-09-17] MEDS: AZACTAM 1 GM in NS 50 ML IV SCH ×3 (05:48→23:10)
[2018-09-17] MEDS: DUONEB (A & A) INH SCH ×5 (07:50→23:35)
[2018-09-17] MEDS: NS 1,000 ML IV SCH ×2 (08:39→17:06)
[2018-09-17] MEDS: NEURONTIN PO SCH ×4 (08:40→23:15)
[2018-09-17] MEDS: LAMICTAL PO SCH (08:40)
[2018-09-17] MEDS: PRINIVIL PO SCH (08:40)
[2018-09-17] MEDS: KLONOPIN PO SCH (08:40)
[2018-09-17] MEDS: PROZAC PO SCH (08:40)
[2018-09-17] MEDS: ATARAX PO SCH ×2 (08:40→23:16)
[2018-09-17] MEDS: LEVAQUIN 500 MG/D5W 500 MG/100 ML IVPB IV SCH (11:46)
[2018-09-17] MEDS ORDERED: MILK OF MAGNESIA PO ONE (13:21)
[2018-09-17] MEDS ORDERED: DULCOLAX PR ONE (13:23)
--- NOTE | 2018-09-17 14:19 | PROGRESS NOTE ---
DATE: 09/17/2018 SUBJECTIVE: Mr. Baker is not breathing very comfortably. He feels like he has got a lot gas, a lot of distention in his abdomen. Has not had a bowel movement. Sitting up at the edge of the bed. OBJECTIVE: Vital signs: Temperature 98.1 degrees, pulse 100, respirations 20, blood pressure 146/100. HEENT: Pupils are equal and round. Lungs: Clear in all lungs with decreased breath sounds. Prolonged expiratory phase. He is on high-flow nasal oxygen. Extremities: No pedal edema. Abdomen: Feels distended. Genitourinary: Urine output is 800 mL. ASSESSMENT: 1. Acute hypoxemic respiratory failure which is improved. Short of breath this morning, feels like he is constipated and distended. 2. Bilateral interstitial ground-glass opacities, probably related to smoke-related interstitial pneumonia. 3. Chronic obstructive pulmonary disease with exacerbation. 4. Persistent hypertension. 5. Ongoing tobacco use. 6. Chronic pain syndrome. PLAN: We are going to try some lactulose, milk of magnesia and begin some MiraLAX as well, and we will try Dulcolax suppository to see if that will help. I am going to go ahead and order a chest x-ray, abdominal flat and upright and see what his belly looks like. He is currently on vancomycin. He is getting methylprednisone 40 mg IV q.8, Prinivil 20 mg daily, Lamictal 100 mg daily, Neurontin 800 mg 4 times a day, Klonopin 1 mg p.o. daily. cc: Rj Broderick MD
--- NOTE | 2018-09-17 16:36 | Diag Imaging Result Doc PS360 ---
EXAM: ABDOMEN FLAT/UPRIGHT INDICATION: abdominal distention TECHNIQUE: 2 views COMPARISON: No prior abdominal CT is available for comparison. FINDINGS: There are unremarkable bowel gas and stool patterns. There is no obstructive bowel pattern. There is no evidence of large volume free abdominal gas. There is no evidence of organomegaly. Dense consolidations at the lung bases seen on previous chest radiograph and chest CT are again noted. IMPRESSION: No evidence of acute abdominal pathology by plain radiograph. Electronically signed by Sree Butler 09/17/2018 4:34 PM
[2018-09-17] MEDS: BUSPAR PO SCH (17:05)
[2018-09-17] MEDS: ATIVAN IV PRN (18:53)
[2018-09-17 19:14] LABS: ALLEN TEST YES; BLOOD TYPE ARTERIAL; HCO3-(ACT) 25.4 mmoll (20.0-26.0); METHB 1.1 % (0.0-1.5); O2(CT) 16.1 mL/dL (15.0-23.0); PCO2(98.6) 42 mmHg (35-45); PO2(98.6) 53 mmHg (60-100); SAMPLE BLOOD; SAO2 89.4 % (95.0-100.0); THB 13.2 g/dL (11.5-17.4)
[2018-09-17 19:16] LABS: MODALITY NRB; O2HB 86.9 % (95.0-99.0)
[2018-09-17] MEDS ORDERED: MORPHINE IV ONE ×2 (19:25→23:45)
[2018-09-17] MEDS ORDERED: LASIX IV ONE ×2 (19:29→20:07)
--- NOTE | 2018-09-17 19:56 | Diag Imaging Result Doc PS360 ---
EXAM: CHEST-PORTABLE - 09/17/2018 HISTORY: SOB TECHNIQUE: Portable chest COMPARISON: 09/14/2018 FINDINGS: Extensive bilateral infiltrates which have increased substantially. Considerations include pulmonary edema, pneumonia, and/or adult respiratory distress syndrome. There is no large pleural effusion identified. There is no pneumothorax identified. The heart borders are partially obscured but heart size appears to be within normal limits. IMPRESSION: Extensive bilateral infiltrates which have increased substantially. Considerations include pulmonary edema, pneumonia, and/or adult respiratory distress syndrome. Electronically signed by Wilner Enciso 09/17/2018 7:54 PM
[2018-09-17 21:21] LABS: URINE SOURCE CATH
[2018-09-17 21:30] LABS: BILIRUBIN URINE NEGATIVE (NEGATIVE); BLOOD URINE MODERATE (NEGATIVE); COLOR YELLOW; GLUCOSE URINE TRACE mg/dL (NEGATIVE); KETONE URINE TRACE mg/dL (NEGATIVE); LEUKOCYTES URINE SMALL (NEGATIVE); NITRITE URINE NEGATIVE (NEGATIVE); PROTEIN URINE 50 mg/dL (NEGATIVE); SP GRAVITY URINE 1.021; TURBIDITY URINE CLEAR (CLEAR); UROBILINOGEN URINE NORMAL (NORMAL)
[2018-09-17 21:32] LABS: URINE BACTERIA NEGATIVE /HPF
[2018-09-17 21:41] LABS: UR EPITHELIAL CELLS <10 /HPF (<10)
[2018-09-17] MEDS: LACTULOSE PO SCH (23:15)
[2018-09-18] MEDS: VANCOMYCIN 1,650 MG in NS 250 ML IV SCH ×3 (00:21→20:13)
[2018-09-18] MEDS: SOLU-MEDROL IV SCH ×3 (00:25→16:18)
[2018-09-18] MEDS: ATIVAN IV PRN (02:13)
[2018-09-18] MEDS ORDERED: MUCOMYST 20% INH ONE (02:36)
[2018-09-18] MEDS ORDERED: MORPHINE IV ONE (02:37)
[2018-09-18] MEDS: DUONEB (A & A) INH PRN (03:00)
[2018-09-18] MEDS: NS 1,000 ML IV SCH (04:42)
[2018-09-18] MEDS: AZACTAM 1 GM in NS 50 ML IV SCH ×3 (05:39→20:20)
[2018-09-18] MEDS: KLONOPIN PO SCH (08:29)
[2018-09-18] MEDS: DUONEB (A & A) INH SCH ×5 (08:35→23:48)
[2018-09-18 09:38] LABS: ALLEN TEST YES; BE 4.2 mmoll (-3.0-3.0); BLOOD TYPE ARTERIAL; HCO3-(ACT) 28.1 mmoll (20.0-26.0); METHB 1.5 % (0.0-1.5); O2(CT) 14.6 mL/dL (15.0-23.0); O2HB 91.9 % (95.0-99.0); PCO2(98.6) 40 mmHg (35-45); PO2(98.6) 64 mmHg (60-100); SAMPLE BLOOD; THB 11.3 g/dL (11.5-17.4); pH(98.6) 7.46 (7.35-7.45)
[2018-09-18 09:40] LABS: MODALITY BI PAP
[2018-09-18] MEDS: CELEBREX PO SCH (10:17)
[2018-09-18] MEDS: PROZAC PO SCH (10:18)
[2018-09-18] MEDS: NEURONTIN PO SCH ×4 (10:18→20:13)
[2018-09-18] MEDS: PRINIVIL PO SCH (10:18)
[2018-09-18] MEDS: ATARAX PO SCH ×2 (10:18→20:12)
[2018-09-18] MEDS: LAMICTAL PO SCH (10:19)
[2018-09-18] MEDS: LACTULOSE PO SCH ×3 (10:29→20:13)
[2018-09-18] MEDS: BUSPAR PO SCH ×3 (10:29→16:17)
[2018-09-18] MEDS: LEVAQUIN 500 MG/D5W 500 MG/100 ML IVPB IV SCH (14:04)
[2018-09-18] MEDS ORDERED: NS 1,000 ML IV SCH (16:13)
[2018-09-18] MEDS: ZOFRAN IV PRN (16:16)
--- NOTE | 2018-09-18 16:55 | PROGRESS NOTE ---
DATE: 09/18/2018 SUBJECTIVE: Mr. Baker has moved down to the unit. He had to remain on BiPAP, having more trouble breathing. It feels like his abdomen is distended. It feels like it is mainly gas and air. OBJECTIVE: Vital Signs: Temperature is 98.1 degrees, pulse 93, respirations 15, but blood pressure was 124/91. Lungs: Clear anterolateral. Cardiovascular: Regular rhythm and rate without murmur or S3. Abdomen: Soft. Skin is warm and dry. DIAGNOSTIC DATA: We will check some labs. They have not been checked since the . Note his phosphorus was 2.1 at that time. His proBNP was 23,000. He does not appear to be volume overloaded or wet. Chest x-ray done yesterday, extensive bilateral infiltrates, which have increased substantially, and possible pulmonary edema, pneumonia, so he could also have adult respiratory distress syndrome. ASSESSMENT AND PLAN: 1. Acute hypoxemic respiratory failure. I guess it is possible he could have adult respiratory distress. His bilateral interstitial ground-glass opacities are related to smoke-related interstitial pneumonia. We will diurese him a little bit. He does not appear to have elevated central venous pressure nor do I appear to hear any rales on exam. 2. Chronic obstructive pulmonary disease with exacerbation. 3. Persistent hypertension. 4. Ongoing tobacco use. 5. Chronic pain syndrome. REVIEW OF ORDERS: He will stay on aztreonam 1 gram IV every ever 8 hour, BuSpar 10 mg t.i.d., Celebrex 200 mg daily. He is taking Klonopin 1 mg daily, Prozac 60 mg a day, gabapentin 800 mg 4 times a day, Atarax 50 mg b.i.d., lactulose 30 mL b.i.d., Lamictal 200 mg a day, Levaquin 500 mg IV every 24 hours, Prinivil 20 mg daily, methylprednisone 40 mg IV every 8 hours. We turned normal saline down to 65 mL an hour. He is on vancomycin 1.65 grams IV every 12 hours. cc: Rj Broderick MD
[2018-09-18] MEDS ORDERED: LASIX IV ONE (19:21)
--- NOTE | 2018-09-19 00:17 | CONSULTATION ---
DATE OF CONSULTATION: 09/18/2018 REQUESTING PROVIDER: Dr. Rj Broderick. REASON FOR CONSULTATION: Shortness of breath. HISTORY OF PRESENT ILLNESS: This is a 53-year-old male with a medical history of bipolar disorder, depression, gastroesophageal reflux disease, hypertension, chronic pain syndrome, and opioid addition. He presented to the ER on 09/14/2018 with sudden onset of severe shortness of breath and left posterior shoulder pain from a fall on 09/13/2018. Initial workup in the ER revealed acute hypoxic respiratory failure, bilateral pneumonia shock, leukocytosis, and tobacco abuse. He has been admitted since then for further evaluation and management. Since admission, the patient keeps requiring high concentration of oxygen. At the time of my examination, the patient is lying in bed on a BiPAP with FiO2 of 100%. His respiratory rate stays around 40s. His oxygen saturation dropped to 80s when the nurse is adjusting his facial mask or when he is talking to me. His daughter is at the bedside. The patient reports he has dizziness, constipation, palpitations at times, but denies fever, unintentional weight change, cough, wheezing, urination discomfort, or chest pain. PAST MEDICAL AND SURGICAL HISTORY: 1. Bipolar disorder. 2. Depression. 3. Gastroesophageal reflux disease. 4. Hypertension. 5. Chronic pain syndrome on Suboxone at home. 6. Opioid addition. 7. Tonsillectomy 8. Right rotator cuff repair. SOCIAL HISTORY: The patient lives at home with his son. He has smoked up to 2 packs of cigarettes daily for 40 years. Currently, he states he is ready to quit. He denies any history of alcohol or illicit drug use. FAMILY HISTORY: Positive for cancer and congestive heart failure. ALLERGIES: Penicillins, sulfa. REVIEW OF SYSTEMS: A 10-point review of systems was conducted, and the pertinent is listed within the HPI. Otherwise noncontributory. PHYSICAL EXAMINATION: Vital Signs: Temperature 97.7, blood pressure 121/78, pulse 105, respiratory rate 18, oxygen saturation 94% on BiPAP with FiO2 of 100%. General: Chronically ill appearing, in moderate respiratory distress. HEENT: Atraumatic. Trachea midline. Mucosa pink and slightly dry. Respiratory: Labored, but no accessory muscles used. Symmetrical excursion. Auscultation reveals diminished breathing sounds bilaterally and only inspiratory crackles bibasilarly. Cardiovascular: Regular rate and rhythm. Sinus tachycardia. Gastrointestinal: Bowel sounds normoactive in all 4 quadrants. Soft, distended. Left lower quadrant tenderness on palpation. Extremities: No pedal edema. Left great toe, mild cyanosis of nail bed noted. Dorsalis pedis 1+ bilaterally. Neurologic: Anxious, but alert and oriented x3. Speech fluent. Follows commands. LABORATORY DATA: ProBNP 23,131. ABG: pH 7.46, pCO2 of 40, pO2 of 64, HCO3 28.1, base excess 4.29. Lactate 3.0. ASSESSMENT: This is a 53-year-old male with a medical history of bipolar disorder, depression, gastroesophageal reflux disease, hypertension, chronic pain syndrome, and opioid addiction. He has been admitted since 09/14/2018 with acute hypoxic respiratory failure, bilateral pneumonia, shock, leukocytosis, and tobacco abuse. 1. Acute hypoxemic respiratory failure. 2. Bilateral interstitial ground-glass opacities concerning for smoking-related pulmonary embolism related interstitial pneumonia. 3. Significantly elevated proBNP. 4. Tobacco abuse. PLAN: 1. Continue supplemental oxygen and BiPAP as needed. 2. Continue antibiotic, steroid, and bronchodilators. 3. Continue diuretics as indicated. 4. Follow up with ABG, CBC, BMP, proBNP, and chest x-ray. 5. Education on the importance and means of smoking sensation. 6. Continue GI and DVT prophylaxis. 7. Further recommendations pending hospital course. Thank you for the courtesy of this consult. Dictated by SONJA Lantigua for Bibi Vo MD cc: SONJA Lantigua MD [facility]
[2018-09-19] MEDS: SOLU-MEDROL IV SCH ×3 (03:10→16:48)
[2018-09-19] MEDS: ZOFRAN IV PRN (03:10)
[2018-09-19 05:18] LABS: ALLEN TEST YES; BE 8.5 mmoll (-3.0-3.0); BLOOD TYPE ARTERIAL; HCO3-(ACT) 31.5 mmoll (20.0-26.0); METHB 1.1 % (0.0-1.5); O2HB 96.1 % (95.0-99.0); PCO2(98.6) 47 mmHg (35-45); PO2(98.6) 97 mmHg (60-100); SAMPLE BLOOD; SAO2 98.8 % (95.0-100.0); pH(98.6) 7.46 (7.35-7.45)
[2018-09-19 05:19] LABS: MODALITY BI PAP
[2018-09-19] MEDS: AZACTAM 1 GM in NS 50 ML IV SCH ×3 (06:00→20:09)
[2018-09-19 07:16] LABS: BASO# 0.01 X1000 (0.0-0.2); BASO% 0.1 % (0.0-0.8); EOS# 0.03 X1000 (0.0-0.7); EOS% 0.2 % (0.0-10.0); HEMATOCRIT 32.5 % (42.0-52.0); HEMOGLOBIN 10.6 g/dL (14.0-18.0); IMM GRAN# 0.14 X1000 (0.0-0.04); IMM GRAN% 0.7 % (0.0-0.5); LYMPH# 1.64 X1000 (1.2-3.4); LYMPH% 8.7 % (20.5-51.1); MCH 28.5 PG (27-31); MCHC 32.6 g/dL (33-37); MCV 87.4 FL (81-99); MONO% 3.7 % (1.7-9.3); MPV 9.3 FL (7.4-10.4); NEUT# 16.38 X1000 (1.4-6.5); NEUT% 86.6 % (42.2-75.2); PLT 244 X1000 (130-400); RBC 3.72 XMIL (4.7-6.1)
--- NOTE | 2018-09-19 07:24 | Diag Imaging Result Doc PS360 ---
EXAM: CHEST-1 VIEW 09/19/2018 HISTORY: SOB TECHNIQUE: AP portable at 0528 COMMENT: There has been definite improvement in the alveolar opacities present throughout both lungs on 09/17/2018. The majority of the right hemidiaphragm is now visible. The right heart border is also more defined. IMPRESSION: Improved pulmonary edema/ARDS. Electronically signed by Shay Sinha 09/19/2018 7:22 AM
[2018-09-19 07:29] LABS: AGAP 13; BUN 22 mg/dL (8-22); CALCIUM 7.7 mg/dL (8.8-10.2); CHLORIDE 98 mmol/L (98-107); COSMO 287; CREATININE 0.5 mg/dL (0.7-1.2); ESTIMATED GFR > 60; GLUCOSE 143 mg/dL (70-104); POTASSIUM 3.2 mmol/L (3.5-5.1); SODIUM 141 mmol/L (136-145); TCO2 30 mmol/L (25-35)
[2018-09-19] MEDS: DUONEB (A & A) INH SCH ×5 (07:53→23:37)
[2018-09-19 07:55] LABS: BANDS 4 % (0-1); LYMPHS 10 % (21-51); SEGS 82 % (42-75)
[2018-09-19 07:56] LABS: HYPOCHROM 1+
[2018-09-19] MEDS: PRINIVIL PO SCH (08:01)
[2018-09-19] MEDS: BUSPAR PO SCH ×3 (08:01→16:48)
[2018-09-19] MEDS: PROZAC PO SCH (08:01)
[2018-09-19] MEDS: KLONOPIN PO SCH (08:01)
[2018-09-19] MEDS: NEURONTIN PO SCH ×3 (08:02→20:09)
[2018-09-19] MEDS: CELEBREX PO SCH (08:02)
[2018-09-19] MEDS: LAMICTAL PO SCH (08:02)
[2018-09-19] MEDS: LACTULOSE PO SCH ×2 (08:12→20:10)
[2018-09-19] MEDS ORDERED: LASIX IV ONE ×2 (08:51→19:18)
[2018-09-19] MEDS: ATARAX PO SCH ×2 (08:58→20:09)
[2018-09-19] MEDS: VANCOMYCIN 1,650 MG in NS 250 ML IV SCH (08:58)
[2018-09-19] MEDS ORDERED: LASIX IV SCH (09:00)
[2018-09-19] MEDS: KLOR-CON PO SCH (09:03)
--- NOTE | 2018-09-19 09:15 | PROGRESS NOTE ---
DATE: 09/19/2018 SUBJECTIVE: Mr. Baker is feeling much better, breathing much better. Still on the BiPAP. His abdomen seems to be softer, much more comfortable. He has remained afebrile. OBJECTIVE: Vital Signs: Temperature 98.7 degrees, pulse 92, respirations 24, and blood pressure 142/94. Eyes: Pupils are equal and round. Lungs: Clear in all lung miller with absent to decreased breath sounds in both bases. Cardiovascular exam: Regular rhythm and rate without murmur or S3. Abdomen: Soft. Extremities: No pedal edema. : Urine output is 5400 mL. DIAGNOSTICS: His chest x-ray from this morning: Pulmonary edema. Suspect ARDS. ASSESSMENT AND PLAN: 1. Acute hypoxemic respiratory failure, bilateral interstitial ground-glass opacities concerning for smoke-related pulmonary disease and related interstitial pneumonia. Does have an elevated proBNP. He is on BiPAP at the present time. 2. History of bipolar depression. Continue his current medications. 3. Esophageal reflux disease. 4. Hypertension. 5. Chronic pain syndrome on Suboxone for opioid addiction. He seems to be feeling a little better, gas exchange a little better. He can hopefully go to nasal cannula. We have him currently on aztreonam 1 g IV q. 8 hours, on his BuSpar 10 mg t.i.d., Celebrex 200 mg a day, Klonopin 1 mg daily, Prozac 60 mg a day. We cut down his gabapentin to 300 mg three times a day. He is on Levaquin 500 mg IV daily, Prinivil 20 mg a day, methylprednisone 40 mg IV q. 8 hours, vancomycin 1.65 g q. 12 hours. We may see if we can go up on his BuSpar to 20 mg t.i.d. to see if this will help. cc: Rj Broderick MD
[2018-09-19] MEDS: LEVAQUIN 500 MG/D5W 500 MG/100 ML IVPB IV SCH (11:22)
[2018-09-20] MEDS: VANCOMYCIN 1,850 MG in NS 500 ML IV SCH ×2 (01:27→11:56)
[2018-09-20] MEDS: SOLU-MEDROL IV SCH ×3 (01:28→16:54)
[2018-09-20] MEDS: AZACTAM 1 GM in NS 50 ML IV SCH ×3 (04:53→20:26)
[2018-09-20] MEDS: ZOFRAN IV PRN ×2 (04:53→20:26)
[2018-09-20 06:29] LABS: HEMATOCRIT 35.6 % (42.0-52.0); HEMOGLOBIN 11.7 g/dL (14.0-18.0); MCH 28.4 PG (27-31); MCHC 32.9 g/dL (33-37); MCV 86.4 FL (81-99); RBC 4.12 XMIL (4.7-6.1); RDW 12.7 % (11.5-14.5); WBC 22.82 X1000 (4.8-10.8)
[2018-09-20 06:30] LABS: BASO# 0.02 X1000 (0.0-0.2); BASO% 0.1 % (0.0-0.8); IMM GRAN# 0.24 X1000 (0.0-0.04); IMM GRAN% 1.1 % (0.0-0.5); LYMPH# 1.19 X1000 (1.2-3.4); LYMPH% 5.2 % (20.5-51.1); MONO# 1.19 X1000 (0.11-0.59); MONO% 5.2 % (1.7-9.3); MPV 9.4 FL (7.4-10.4); NEUT# 20.18 X1000 (1.4-6.5); NEUT% 88.4 % (42.2-75.2); PLT 232 X1000 (130-400)
--- NOTE | 2018-09-20 06:31 | PROGRESS NOTE ---
DATE: 09/20/2018 SUBJECTIVE: His breathing is better. He did not sleep much last night. He is hungry. We will give him regular diet, so make sure we change that officially. OBJECTIVE: Vital Signs: Temperature 98.6 degrees, pulse 80, respirations 38, blood pressure 138/106. HEENT: Pupils are equal and round. Lungs: Clear in all lung miller. Cardiovascular: Regular rhythm and rate without murmur or S3. Abdomen: Soft. Skin: Warm and dry. ASSESSMENT AND PLAN: 1. He is on a BiPAP machine, acute hypoxemic respiratory failure, bilateral interstitial ground- glass opacities concerning for acute respiratory distress syndrome, and interstitial pneumonia continue. He seems to clinically be improving. We will continue to diurese with diuretics. Continue his present antibiotics. BiPAP as needed and bronchodilators. 2. Significantly elevated B-type natriuretic peptide. He had an echocardiogram done on 09/14/2018. Left ventricular ejection fraction 60% to 65%. There is trace mitral regurgitation, trace to mild tricuspid regurgitation, but no significant valvular dysfunction. Seems to be improving. Continue present regimen. REVIEW OF ORDERS: He is on aztreonam 1 g IV every 8 hours, BuSpar 20 mg t.i.d., Celebrex 200 mg a day, Klonopin 1 mg daily, Prozac 60 mg a day, Neurontin 300 mg I think 3 times a day, Atarax 50 mg b.i.d., lactulose 30 mL b.i.d., Lamictal 200 mg a day, and he is on Levaquin as well 500 mg IV daily and aztreonam. He is on Prinivil 20 mg a day, methylprednisone 40 mg IV q.8 h. and he is getting vancomycin as well. He has had no growth from blood cultures or from the urine culture. cc: Rj Broderick MD
[2018-09-20] MEDS: DUONEB (A & A) INH SCH ×5 (07:12→23:53)
[2018-09-20 07:14] LABS: AGAP 16; BUN 14 mg/dL (8-22); CALCIUM 8.7 mg/dL (8.8-10.2); CHLORIDE 94 mmol/L (98-107); COSMO 281; CREATININE 0.5 mg/dL (0.7-1.2); ESTIMATED GFR > 60; GLUCOSE 160 mg/dL (70-104); POTASSIUM 3.1 mmol/L (3.5-5.1); SODIUM 139 mmol/L (136-145); TCO2 29 mmol/L (25-35)
--- NOTE | 2018-09-20 07:43 | Diag Imaging Result Doc PS360 ---
EXAM: CHEST-1 VIEW 09/20/2018 HISTORY: SOB TECHNIQUE: AP portable at 0459 COMMENT: There is diffuse alveolar and interstitial pulmonary edema. This appears slightly worse than on 09/19/2018 despite the relatively better inspiration. IMPRESSION: Slightly worsened pulmonary edema/ARDS. Electronically signed by Shay Sinha 09/20/2018 7:41 AM
[2018-09-20 08:10] LABS: LYMPHS 4 % (21-51); MONO 6 % (1-9); SEGS 90 % (42-75)
[2018-09-20] MEDS: KLONOPIN PO SCH (08:39)
[2018-09-20] MEDS: ATARAX PO SCH ×2 (08:39→21:23)
[2018-09-20] MEDS: LAMICTAL PO SCH (08:39)
[2018-09-20] MEDS: PROZAC PO SCH (08:39)
[2018-09-20] MEDS: PRINIVIL PO SCH (08:39)
[2018-09-20] MEDS: BUSPAR PO SCH ×3 (08:40→16:54)
[2018-09-20] MEDS: NEURONTIN PO SCH ×3 (08:40→20:27)
[2018-09-20] MEDS: KLOR-CON PO SCH (08:40)
[2018-09-20] MEDS: CELEBREX PO SCH (08:40)
[2018-09-20] MEDS: LACTULOSE PO SCH ×2 (08:58→21:23)
[2018-09-20] MEDS ORDERED: LASIX IV ONE (09:35)
[2018-09-20 09:56] LABS: ALLEN TEST YES; BE 11.1 mmoll (-3.0-3.0); BLOOD TYPE ARTERIAL; HCO3-(ACT) 33.3 mmoll (20.0-26.0); METHB 1.4 % (0.0-1.5); PCO2(98.6) 50 mmHg (35-45); SAMPLE BLOOD; SAO2 87.3 % (95.0-100.0); THB 11.8 g/dL (11.5-17.4); pH(98.6) 7.47 (7.35-7.45)
[2018-09-20 10:02] LABS: PO2(98.6) 49 mmHg (60-100)
[2018-09-20 10:03] LABS: MODALITY BI PAP; O2HB 84.7 % (95.0-99.0)
[2018-09-20] MEDS: LEVAQUIN 500 MG/D5W 500 MG/100 ML IVPB IV SCH (11:55)
[2018-09-20] MEDS: NEXIUM PO SCH (14:44)
[2018-09-20] MEDS ORDERED: AYR NASAL SPRAY NAS PRN (16:38)
[2018-09-20] MEDS: TYLENOL PO PRN (18:21)
[2018-09-20] MEDS: LASIX IV SCH (21:23)
[2018-09-21] MEDS: VANCOMYCIN 1,850 MG in NS 500 ML IV SCH ×2
[2018-09-21] MEDS: SOLU-MEDROL IV SCH ×3 (01:37→17:11)
[2018-09-21] MEDS: NEXIUM PO SCH ×2 (04:25→13:47)
[2018-09-21] MEDS: AZACTAM 1 GM in NS 50 ML IV SCH ×3 (04:29→20:07)
[2018-09-21 04:35] LABS: ALLEN TEST YES; BE 12.9 mmoll (-3.0-3.0); BLOOD TYPE ARTERIAL; HCO3-(ACT) 34.9 mmoll (20.0-26.0); METHB 0.5 % (0.0-1.5); O2(CT) 15.5 mL/dL (15.0-23.0); O2HB 93.4 % (95.0-99.0); PCO2(98.6) 47 mmHg (35-45); PO2(98.6) 62 mmHg (60-100); SAMPLE BLOOD; SAO2 95.8 % (95.0-100.0); THB 11.8 g/dL (11.5-17.4); pH(98.6) 7.51 (7.35-7.45)
[2018-09-21 04:36] LABS: MODALITY BI PAP
[2018-09-21 06:48] LABS: BASO# 0.01 X1000 (0.0-0.2); EOS# 0.01 X1000 (0.0-0.7); HEMATOCRIT 35.7 % (42.0-52.0); HEMOGLOBIN 11.6 g/dL (14.0-18.0); IMM GRAN# 0.22 X1000 (0.0-0.04); IMM GRAN% 0.9 % (0.0-0.5); LYMPH# 1.16 X1000 (1.2-3.4); LYMPH% 4.8 % (20.5-51.1); MCH 28.1 PG (27-31); MCHC 32.5 g/dL (33-37); MCV 86.4 FL (81-99); MONO# 1.44 X1000 (0.11-0.59); MPV 10.1 FL (7.4-10.4); NEUT# 21.12 X1000 (1.4-6.5); NEUT% 88.3 % (42.2-75.2); PLT 183 X1000 (130-400); RBC 4.13 XMIL (4.7-6.1); RDW 12.6 % (11.5-14.5); WBC 23.96 X1000 (4.8-10.8)
[2018-09-21] MEDS ORDERED: NEXIUM PO SCH (07:00)
--- NOTE | 2018-09-21 07:09 | Diag Imaging Result Doc PS360 ---
EXAM: CHEST-1 VIEW HISTORY: SOB TECHNIQUE: Portable chest single view COMPARISON: 09/20/2018 FINDINGS: The lungs are well expanded. There are dense bilateral infiltrates. These are slightly less prominent in the upper lungs. There is cardiomegaly and tiny pleural effusions. IMPRESSION: Dense bilateral infiltrates persist although they're slightly less dense in the apices. Electronically signed by Markus Joiner 09/21/2018 7:07 AM
[2018-09-21 07:14] LABS: AGAP 12; BUN 12 mg/dL (8-22); CALCIUM 8.2 mg/dL (8.8-10.2); CHLORIDE 91 mmol/L (98-107); COSMO 277; CREATININE 0.5 mg/dL (0.7-1.2); ESTIMATED GFR > 60; GLUCOSE 162 mg/dL (70-104); POTASSIUM 3.2 mmol/L (3.5-5.1); SODIUM 137 mmol/L (136-145); TCO2 34 mmol/L (25-35)
[2018-09-21] MEDS: DUONEB (A & A) INH SCH ×5 (07:22→23:27)
[2018-09-21] MEDS: LAMICTAL PO SCH (09:31)
[2018-09-21] MEDS: PROZAC PO SCH (09:31)
[2018-09-21] MEDS: BUSPAR PO SCH ×3 (09:31→17:12)
[2018-09-21] MEDS: CELEBREX PO SCH (09:31)
[2018-09-21] MEDS: ATARAX PO SCH ×2 (09:32→20:09)
[2018-09-21] MEDS: NEURONTIN PO SCH ×3 (09:32→20:09)
[2018-09-21] MEDS: KLONOPIN PO SCH (09:32)
[2018-09-21] MEDS: PRINIVIL PO SCH (09:32)
[2018-09-21] MEDS: KLOR-CON PO SCH (09:32)
[2018-09-21] MEDS: LASIX IV SCH ×2 (09:32→20:49)
[2018-09-21] MEDS: POTASSIUM CHLORIDE 20 MEQ/SWI 20 MEQ/100 ML IVPB IV SCH ×2 (09:42→11:51)
[2018-09-21] MEDS ORDERED: LASIX IV ONE (11:26)
[2018-09-21] MEDS: LACTULOSE PO SCH ×2 (11:28→20:08)
--- NOTE | 2018-09-21 11:48 | PROGRESS NOTE ---
DATE: 09/21/2018 SUBJECTIVE: He is still requiring BiPAP. He does feel better. His O2 saturations drop after he goes off the BiPAP and he gets on the bedside commode, but his abdomen is better, it is softer. He is eating. OBJECTIVE: Vital Signs: He remains afebrile, temperature 98.3 degrees, pulse 72, respirations 27, blood pressure 142/94. HEENT: Pupils are equal and round. Lungs: Clear anterolateral and posterior. Extremities: No pedal edema. Skin: Warm and dry. Urine output is almost 10 L, so excellent urine output. XRAYS: Chest x-ray from this morning, a dense bilateral infiltrate persist, slightly less dense in APCs. ASSESSMENT AND PLAN: 1. Acute hypoxemic respiratory failure, bilateral interstitial ground glass opacities and possible ARDS and looks like it is ARDS in this smoker. Clinically looks a little better but his gas exchange is poor. We are going to continue his BiPAP as needed and his broad-spectrum antibiotic, his steroids and bronchodilators. I am not sure what precipitated this, whether it was the smoking or whether it could have been his Suboxone. He does not want to take the Suboxone anymore. He is on his BuSpar 10 mg t.i.d. He takes his Klonopin 1 mg daily. 2. Anxiety is a component here, so continue his present medication. 3. Blood pressure appears well controlled. Pulmonary is following. I am going to continue his present regimen. He is on methylprednisone 40 mg IV q.8. I will keep him there. He is on vancomycin 1850 mg q.12. He is on Levaquin 500 mg IV q.24 hours and aztreonam 1 g IV q.8. Radiographically, not a whole lot of improvement. In evaluating his left ventricular function and echocardiogram, ejection fraction 60% to 65%. No significant valvular dysfunction. I stopped the Neurontin and I think I cut down on his Prozac. cc: Rj Broderick MD
[2018-09-21] MEDS: LEVAQUIN 500 MG/D5W 500 MG/100 ML IVPB IV SCH (12:15)
[2018-09-21] MEDS: VANCOMYCIN 2,000 MG in NS 500 ML IV SCH (13:40)
[2018-09-22] MEDS: SOLU-MEDROL IV SCH ×2 (01:14→12:20)
[2018-09-22] MEDS: VANCOMYCIN 2,000 MG in NS 500 ML IV SCH ×2 (01:38→12:20)
[2018-09-22] MEDS: NEXIUM PO SCH ×2 (02:45→13:50)
[2018-09-22 04:53] LABS: BASO# 0.02 X1000 (0.0-0.2); BASO% 0.1 % (0.0-0.8); HEMATOCRIT 35.9 % (42.0-52.0); HEMOGLOBIN 11.9 g/dL (14.0-18.0); IMM GRAN# 0.22 X1000 (0.0-0.04); IMM GRAN% 0.8 % (0.0-0.5); LYMPH# 1.22 X1000 (1.2-3.4); LYMPH% 4.4 % (20.5-51.1); MCH 28.6 PG (27-31); MCHC 33.1 g/dL (33-37); MCV 86.3 FL (81-99); MONO# 1.66 X1000 (0.11-0.59); MONO% 5.9 % (1.7-9.3); MPV 9.7 FL (7.4-10.4); NEUT# 24.84 X1000 (1.4-6.5); NEUT% 88.8 % (42.2-75.2); PLT 159 X1000 (130-400); RBC 4.16 XMIL (4.7-6.1); RDW 12.7 % (11.5-14.5); WBC 27.96 X1000 (4.8-10.8)
[2018-09-22] MEDS: AZACTAM 1 GM in NS 50 ML IV SCH ×3 (05:00→20:28)
[2018-09-22 05:12] LABS: ALLEN TEST YES; BE 14.6 mmoll (-3.0-3.0); BLOOD TYPE ARTERIAL; HCO3-(ACT) 36.3 mmoll (20.0-26.0); O2(CT) 15.7 mL/dL (15.0-23.0); O2HB 95.2 % (95.0-99.0); PO2(98.6) 70 mmHg (60-100); SAMPLE BLOOD; SAO2 99.8 % (95.0-100.0); THB 11.7 g/dL (11.5-17.4)
[2018-09-22 05:13] LABS: ESTIMATED GFR > 60
[2018-09-22 05:14] LABS: MODALITY BI PAP; PCO2(98.6) 51 mmHg (35-45)
[2018-09-22 05:47] LABS: AGAP 13; BUN 15 mg/dL (8-22); CALCIUM 8.1 mg/dL (8.8-10.2); CHLORIDE 89 mmol/L (98-107); COSMO 276; CREATININE 0.5 mg/dL (0.7-1.2); GLUCOSE 152 mg/dL (70-104); POTASSIUM 3.4 mmol/L (3.5-5.1); SODIUM 136 mmol/L (136-145); TCO2 34 mmol/L (25-35)
[2018-09-22 07:03] LABS: LYMPHS 8 % (21-51); SEGS 92 % (42-75)
--- NOTE | 2018-09-22 07:23 | Diag Imaging Result Doc PS360 ---
CHEST-1 VIEW - 09/22/2018 INDICATION: SOB COMPARISON: 09/21/2018 FINDINGS: Stable extensive bilateral mixed, predominantly alveolar infiltrates. Heart size remains top normal. No pneumothorax or significant pleural effusion. IMPRESSION: Stable dense bilateral infiltrates. Electronically signed by Phillip Garcia 09/22/2018 7:21 AM
[2018-09-22] MEDS: DUONEB (A & A) INH SCH ×5 (07:35→23:25)
--- NOTE | 2018-09-22 08:24 | PROGRESS NOTE ---
DATE: 09/22/2018 SUBJECTIVE: This patient is still short of breath, oxygen saturation has been in the low 90s and high 80s, even though he has been on the BiPAP machine. X-ray showed stable dense bilateral infiltrates, predominantly alveolar infiltrates. No pneumothorax or significant pleural effusion. He looks euvolemic and he has been getting furosemide 60 mg IV q. 12 hours. I will keep it maybe for 1 more day and tomorrow will recheck the dose of Lasix. I will continue with antibiotics, breathing treatment. I have decreased a little bit of the dose of steroids. OBJECTIVE: Vital Signs: Temperature 98.2 degrees, pulse 98, respiratory rate 26, blood pressure 138/93, oxygen saturation 92 on the BiPAP machine, 80% oxygen flow. HEENT: Head normocephalic, no trauma. PERRLA. Neck: Supple. No JVD, no masses. Central trachea. Chest: Coarse breath sounds bilaterally with crackles at the bases and scattered rhonchi bilaterally as well. Abdomen: Soft, nontender, nondistended. No hepatosplenomegaly. Extremities: No edema, no clubbing, no cyanosis. Neurological examination: The patient is alert and oriented x3. No focal neurological deficits. LABORATORY: WBC 27.9, hemoglobin 11.9, hematocrit 35.9, platelet 159. The pH is 7.5, pCO2 51, PO2 70. Sodium 136, potassium 3.4, chloride 89, bicarbonate 34. BUN 15, creatinine 0.5, glucose 152, calcium 8.1. ASSESSMENT AND PLAN: 1. Acute hypoxemic respiratory failure and hypercapnic respiratory failure. This patient is still on the BiPAP machine, and he has been requiring high oxygen flow. His oxygen saturation has been in the high 80s and low 90s, and eventually will drop even more mostly when the patient is sleeping. He is a heavy smoker and he used to smoke 2 packs a day. Cessation has been discussed with the patient. 2. Bilateral interstitial ground-glass infiltrates likely due to pneumonia, probably atypical pneumonia. X-ray today looks better for me. I will continue with the same management. I have decreased the dose of the steroids from 40 IV q. 8 hours to 40 IV q. 12 hours, continue with antibiotics, breathing treatment. 3. Chronic obstructive pulmonary disease exacerbation. Like I mentioned before, I have decreased the dose of the steroids a little bit, and I will continue with same management. 4. Likely sepsis. Upon admission, this patient was hypotensive. He has been tachycardic and tachypneic. We do have a source of infection. 5. History of bipolar disorder, aware. Continue to monitor. 6. Depression. Continue with same treatment. He is on Prozac and Klonopin as well. 7. History of gastroesophageal reflux disease. Continue with Nexium. 8. Chronic pain syndrome. He has been on Suboxone at home, but he has been refusing taking it during this hospitalization, opioid addiction as well. 9. Hypokalemia. I will replace the potassium. 10. Leukocytosis; likely a combination of the infectious process and steroids. I have decreased the dose of the steroids. We will continue to monitor. CRITICAL CARE TIME: 35 minutes. cc: Gilbert Renteria MD
[2018-09-22] MEDS: LASIX IV SCH (09:01)
[2018-09-22] MEDS: LAMICTAL PO SCH (09:02)
[2018-09-22] MEDS: KLOR-CON PO SCH (09:02)
[2018-09-22] MEDS: NEURONTIN PO SCH ×3 (09:02→20:29)
[2018-09-22] MEDS: BUSPAR PO SCH ×3 (09:02→16:54)
[2018-09-22] MEDS: CELEBREX PO SCH (09:02)
[2018-09-22] MEDS: ATARAX PO SCH ×2 (09:02→20:28)
[2018-09-22] MEDS: PROZAC PO SCH (09:03)
[2018-09-22] MEDS: KLONOPIN PO SCH ×2 (09:03→20:29)
[2018-09-22] MEDS: PRINIVIL PO SCH (09:03)
[2018-09-22] MEDS: LACTULOSE PO SCH ×2 (09:28→20:29)
[2018-09-22] MEDS: LEVAQUIN 500 MG/D5W 500 MG/100 ML IVPB IV SCH (11:28)
[2018-09-22] MEDS: MYLICON PO PRN (15:25)
[2018-09-23] MEDS: VANCOMYCIN 2,000 MG in NS 500 ML IV SCH ×2 (00:50→13:52)
[2018-09-23] MEDS: SOLU-MEDROL IV SCH ×2 (00:50→13:52)
[2018-09-23] MEDS: NEXIUM PO SCH ×2 (02:19→17:05)
[2018-09-23] MEDS: AZACTAM 1 GM in NS 50 ML IV SCH ×3 (04:08→21:54)
[2018-09-23 05:24] LABS: BASO# 0.03 X1000 (0.0-0.2); BASO% 0.1 % (0.0-0.8); HEMATOCRIT 36.1 % (42.0-52.0); HEMOGLOBIN 11.7 g/dL (14.0-18.0); IMM GRAN# 0.18 X1000 (0.0-0.04); IMM GRAN% 0.8 % (0.0-0.5); LYMPH% 4.8 % (20.5-51.1); MCH 28.5 PG (27-31); MCHC 32.4 g/dL (33-37); MCV 87.8 FL (81-99); MONO# 1.26 X1000 (0.11-0.59); MONO% 5.5 % (1.7-9.3); MPV 9.7 FL (7.4-10.4); NEUT# 20.32 X1000 (1.4-6.5); NEUT% 88.8 % (42.2-75.2); PLT 162 X1000 (130-400); RBC 4.11 XMIL (4.7-6.1); WBC 22.89 X1000 (4.8-10.8)
[2018-09-23 05:44] LABS: ALLEN TEST YES; BE 7.3 mmoll (-3.0-3.0); BLOOD TYPE ARTERIAL; HCO3-(ACT) 30.6 mmoll (20.0-26.0); METHB 1.1 % (0.0-1.5); O2(CT) 16.3 mL/dL (15.0-23.0); O2HB 96.4 % (95.0-99.0); PCO2(98.6) 48 mmHg (35-45); PO2(98.6) 104 mmHg (60-100); SAMPLE BLOOD; SAO2 98.7 % (95.0-100.0); THB 11.9 g/dL (11.5-17.4); pH(98.6) 7.44 (7.35-7.45)
[2018-09-23 05:45] LABS: AGAP 11; BUN 18 mg/dL (8-22); CALCIUM 7.8 mg/dL (8.8-10.2); CHLORIDE 92 mmol/L (98-107); COSMO 274; CREATININE 0.6 mg/dL (0.7-1.2); ESTIMATED GFR > 60; GLUCOSE 195 mg/dL (70-104); POTASSIUM 3.7 mmol/L (3.5-5.1); SODIUM 133 mmol/L (136-145); TCO2 30 mmol/L (25-35)
[2018-09-23 05:48] LABS: MODALITY BI PAP
[2018-09-23 06:35] LABS: BANDS 2 % (0-1); LYMPHS 6 % (21-51); SEGS 92 % (42-75)
--- NOTE | 2018-09-23 07:32 | Diag Imaging Result Doc PS360 ---
CHEST-1 VIEW - 09/23/2018 INDICATION: SOB COMPARISON: 09/22/2018 FINDINGS: There has been some improvement in the dense bilateral primarily interstitial infiltrates. Heart size is top normal. No pneumothorax or pleural effusion. IMPRESSION: Slight improvement in the dense bilateral infiltrates. Electronically signed by Phillip Garcia 09/23/2018 7:30 AM
[2018-09-23] MEDS: DUONEB (A & A) INH SCH ×5 (07:33→23:13)
[2018-09-23] MEDS: ATARAX PO SCH ×2 (08:52→21:55)
[2018-09-23] MEDS: LAMICTAL PO SCH (08:53)
[2018-09-23] MEDS: NEURONTIN PO SCH ×3 (08:53→21:55)
[2018-09-23] MEDS: PRINIVIL PO SCH (08:53)
[2018-09-23] MEDS: CELEBREX PO SCH (08:53)
[2018-09-23] MEDS: PROZAC PO SCH (08:53)
[2018-09-23] MEDS: LASIX IV SCH (08:53)
[2018-09-23] MEDS: KLOR-CON PO SCH (08:53)
[2018-09-23] MEDS: BUSPAR PO SCH ×3 (10:00→17:05)
[2018-09-23] MEDS: LACTULOSE PO SCH ×2 (10:00→21:56)
--- NOTE | 2018-09-23 10:30 | PROGRESS NOTE ---
DATE: 09/23/2018 SUBJECTIVE: This patient is doing better. He is sitting at the bedside. He was using the BiPAP machine during the night, but now he was transitioned to a non rebreathing mask, oxygen saturation has been in the low 90s. The dose of the Lasix has been decreased to 60 once a day IV. OBJECTIVE: Vital Signs: Temperature 97.4 degrees, pulse 89, respiratory rate 22, blood pressure 127/83, oxygen saturation 93 on a nonrebreathing mask, and oxygen flow rate 15. HEENT: Head normocephalic. No trauma. PERRLA. Neck: Supple. No JVD. No masses. Central trachea. Lungs: Chest with coarse sounds bilaterally with crackles at the bases and scattered rhonchi bilaterally as well. Abdomen: Soft, nontender, and nondistended. No hepatosplenomegaly. Extremities: No edema. No clubbing. No cyanosis. Neurological: Alert and oriented x3. No focal deficits. LABORATORY: WBC 22.8, hemoglobin 11.7, hematocrit 36.1, and platelets 162,000. Sodium 137, potassium 3.7, chloride 92, bicarbonate 30, BUN 18, creatinine 0.6 glucose 195, calcium 7.8, and ProBNP 3848. ASSESSMENT AND PLAN: 1. Acute hypoxemic respiratory failure and hypercapnic respiratory failure. This patient has been transitioned from the BiPAP machine to a nonrebreathing mask. He is still requiring high oxygen flow, oxygen saturation has been in the high 80's and low 90s. He is a heavy smoker and he has been smoking 2 packs a day. Cessation has been discussed with this patient. 2. Bilateral interstitial ground-glass infiltrates likely due to pneumonia, probably atypical in etiology. X-ray looks better today. I will continue with the same management. 3. COPD exacerbation. I will continue with the same dose of steroids today and tomorrow. Hopefully, I will decrease it even more. I will continue with the same treatment. He is looking better. 4. Likely sepsis. Upon admission, this patient was hypotensive, tachycardic and tachypneic, and we do have a source of infection, sepsis has resolved. 5. History of bipolar disorder aware. 6. Depression. Continue with same treatment. 7. Gastroesophageal reflux disease. Continue with Nexium. 8. Chronic pain syndrome. This patient has been on Suboxone at home, but he has been refusing taking this treatment during this hospitalization. He has a opioid addiction as well. 9. Hypokalemia. Resolved. 10. Leukocytosis likely a combination of infectious process and steroid use, better compared with yesterday. CRITICAL CARE TIME: 35 minutes. cc: Gilbert Renteria MD
[2018-09-23] MEDS: LEVAQUIN 500 MG/D5W 500 MG/100 ML IVPB IV SCH (13:52)
[2018-09-23] MEDS: KLONOPIN PO SCH (21:55)
[2018-09-24] MEDS: SOLU-MEDROL IV SCH ×3 (00:27→20:59)
[2018-09-24] MEDS: VANCOMYCIN 2,000 MG in NS 500 ML IV SCH ×2 (00:27→14:53)
[2018-09-24] MEDS: NEXIUM PO SCH ×2 (03:04→14:44)
[2018-09-24] MEDS: AZACTAM 1 GM in NS 50 ML IV SCH ×3 (04:25→20:58)
[2018-09-24 05:19] LABS: ALLEN TEST YES; BE 7.9 mmoll (-3.0-3.0); BLOOD TYPE ARTERIAL; O2(CT) 16.1 mL/dL (15.0-23.0); O2HB 94.2 % (95.0-99.0); PCO2(98.6) 49 mmHg (35-45); PO2(98.6) 76 mmHg (60-100); SAMPLE BLOOD; SAO2 96.9 % (95.0-100.0); THB 12.1 g/dL (11.5-17.4); pH(98.6) 7.44 (7.35-7.45)
[2018-09-24 05:21] LABS: MODALITY BI PAP
[2018-09-24 05:49] LABS: BASO# 0.02 X1000 (0.0-0.2); BASO% 0.1 % (0.0-0.8); HEMOGLOBIN 11.8 g/dL (14.0-18.0); IMM GRAN# 0.19 X1000 (0.0-0.04); IMM GRAN% 0.9 % (0.0-0.5); LYMPH# 0.98 X1000 (1.2-3.4); LYMPH% 4.5 % (20.5-51.1); MCHC 31.9 g/dL (33-37); MCV 87.7 FL (81-99); MONO# 1.23 X1000 (0.11-0.59); MONO% 5.6 % (1.7-9.3); MPV 9.9 FL (7.4-10.4); NEUT# 19.48 X1000 (1.4-6.5); NEUT% 88.9 % (42.2-75.2); PLT 182 X1000 (130-400); RBC 4.22 XMIL (4.7-6.1); RDW 12.9 % (11.5-14.5)
[2018-09-24 05:56] LABS: AGAP 10; BUN 14 mg/dL (8-22); CALCIUM 7.8 mg/dL (8.8-10.2); CHLORIDE 92 mmol/L (98-107); COSMO 273; CREATININE 0.5 mg/dL (0.7-1.2); ESTIMATED GFR > 60; GLUCOSE 206 mg/dL (70-104); POTASSIUM 3.7 mmol/L (3.5-5.1); SODIUM 133 mmol/L (136-145); TCO2 31 mmol/L (25-35)
[2018-09-24 06:11] LABS: LYMPHS 7 % (21-51); MONO 6 % (1-9); SEGS 87 % (42-75)
[2018-09-24] MEDS: DUONEB (A & A) INH SCH ×5 (08:00→23:40)
[2018-09-24] MEDS: PRINIVIL PO SCH (08:43)
[2018-09-24] MEDS: KLOR-CON PO SCH (08:43)
[2018-09-24] MEDS: NEURONTIN PO SCH ×3 (08:43→20:59)
[2018-09-24] MEDS: CELEBREX PO SCH (08:43)
[2018-09-24] MEDS: LAMICTAL PO SCH (08:43)
[2018-09-24] MEDS: BUSPAR PO SCH ×3 (08:43→20:59)
[2018-09-24] MEDS: LACTULOSE PO SCH ×2 (08:44→21:03)
[2018-09-24] MEDS: PROZAC PO SCH (08:44)
[2018-09-24] MEDS: LASIX IV SCH (08:44)
[2018-09-24] MEDS: ATARAX PO SCH ×2 (08:44→20:59)
--- NOTE | 2018-09-24 08:46 | PROGRESS NOTE ---
DATE: 09/24/2018 SUBJECTIVE: The patient is doing better. He is sitting at the bedside. He used the BiPAP machine during the night but now he is using a high-flow oxygen nasal cannula. He is having good urine output and the kidney function is good. OBJECTIVE: Vital Signs: Temperature 97.6 degrees, pulse 87, respiratory rate 20, blood pressure 138/86, oxygen saturation 92 on a high-flow oxygen nasal cannula. HEENT: Head normocephalic. No trauma. PERRLA. Neck: Supple. No JVD. Central trachea. Chest: Coarse breath sounds bilaterally with crackles at the bases, and scattered rhonchi and some expiratory wheezing. Abdomen: Soft, nontender, nondistended. No hepatosplenomegaly. Extremities: No edema, no clubbing, no cyanosis. Neurological Examination: The patient is alert and oriented x3. No focal deficits. Laboratory: WBC 21.9, hemoglobin 11.8, hematocrit 37, platelets 182,000. Sodium 133, potassium 3.7, chloride 92, bicarbonate 31, BUN 14, creatinine 0.5, glucose 206, calcium 7.8. ASSESSMENT AND PLAN: 1. Acute hypoxemic and hypercapnic respiratory failure. This patient has been transitioned from the BiPAP machine to a high-flow nasal cannula. He is still requiring high oxygen flow to keep the oxygen saturation above 90. He is a heavy smoker and he has been smoking 2 packs a day. Cessation has been discussed with this patient. 2. Bilateral interstitial ground-glass infiltrates, likely due to pneumonia, probably atypical in etiology. X-ray has been better. We will continue with the same management. 3. Chronic obstructive pulmonary disease exacerbation. Continue with breathing treatments, antibiotics, and oxygen supplementation. I will decrease the dose of the steroids a little bit today. 4. Sepsis. Upon admission, this patient was hypotensive, tachycardic, and tachypneic. We do have a source of infection. Sepsis has resolved. 5. History of bipolar disorder. Aware. 6. Depression. Continue with the same management. 7. Gastroesophageal reflux disease. Continue with Nexium. 8. Chronic pain syndrome. This patient has been on Suboxone before at home but he has been refusing taking this treatment during this hospitalization. 9. Hypokalemia, resolved. 10. Leukocytosis, likely a combination of infectious process and steroid use, trending down slowly. cc: Gilbert Renteria MD
[2018-09-24] MEDS ORDERED: SOLU-MEDROL IV SCH (09:00)
[2018-09-24] MEDS: LEVAQUIN 500 MG/D5W 500 MG/100 ML IVPB IV SCH (12:12)
--- NOTE | 2018-09-24 13:33 | Diag Imaging Result Doc PS360 ---
EXAM: CHEST-1 VIEW 09/24/2018 HISTORY: SOB TECHNIQUE: AP portable at 1319 COMMENT: There is alveolar opacity in the mid and lower lung miller bilaterally. There has been definite improvement since the previous study of 09/23/2018. IMPRESSION: Improved pulmonary edema/ARDS. Electronically signed by Shay Sinha 09/24/2018 1:31 PM
[2018-09-24] MEDS: MYLICON PO PRN (14:04)
[2018-09-24] MEDS: KLONOPIN PO SCH (20:59)
[2018-09-25] MEDS: SOLU-MEDROL IV SCH ×4 (02:07→21:24)
[2018-09-25] MEDS: NEXIUM PO SCH ×2 (02:07→14:00)
[2018-09-25] MEDS: VANCOMYCIN 2,000 MG in NS 500 ML IV SCH ×2 (02:07→13:35)
[2018-09-25] MEDS: AZACTAM 1 GM in NS 50 ML IV SCH ×3 (04:49→21:24)
[2018-09-25] MEDS: TYLENOL PO PRN (04:49)
[2018-09-25 06:07] LABS: BASO# 0.03 X1000 (0.0-0.2); BASO% 0.1 % (0.0-0.8); HEMATOCRIT 35.7 % (42.0-52.0); HEMOGLOBIN 11.6 g/dL (14.0-18.0); IMM GRAN# 0.21 X1000 (0.0-0.04); IMM GRAN% 0.8 % (0.0-0.5); LYMPH# 1.18 X1000 (1.2-3.4); LYMPH% 4.4 % (20.5-51.1); MCH 28.2 PG (27-31); MCHC 32.5 g/dL (33-37); MCV 86.7 FL (81-99); MONO% 7.1 % (1.7-9.3); NEUT# 23.62 X1000 (1.4-6.5); NEUT% 87.6 % (42.2-75.2); PLT 238 X1000 (130-400); RBC 4.12 XMIL (4.7-6.1); RDW 12.7 % (11.5-14.5); WBC 26.94 X1000 (4.8-10.8)
[2018-09-25 06:15] LABS: ALLEN TEST YES; BE 6.6 mmoll (-3.0-3.0); BLOOD TYPE ARTERIAL; HCO3-(ACT) 29.9 mmoll (20.0-26.0); METHB 1.4 % (0.0-1.5); O2(CT) 14.6 mL/dL (15.0-23.0); PCO2(98.6) 48 mmHg (35-45); PO2(98.6) 58 mmHg (60-100); SAMPLE BLOOD; SAO2 92.6 % (95.0-100.0); THB 11.6 g/dL (11.5-17.4); pH(98.6) 7.43 (7.35-7.45)
[2018-09-25 06:16] LABS: MODALITY HIGH FLOW NASAL CAN; O2HB 89.5 % (95.0-99.0)
[2018-09-25 06:17] LABS: AGAP 11; BUN 13 mg/dL (8-22); CALCIUM 8.1 mg/dL (8.8-10.2); CHLORIDE 93 mmol/L (98-107); COSMO 270; CREATININE 0.5 mg/dL (0.7-1.2); ESTIMATED GFR > 60; GLUCOSE 203 mg/dL (70-104); POTASSIUM 3.7 mmol/L (3.5-5.1); SODIUM 132 mmol/L (136-145); TCO2 28 mmol/L (25-35)
[2018-09-25] MEDS: DUONEB (A & A) INH SCH ×5 (07:45→23:30)
--- NOTE | 2018-09-25 07:45 | Diag Imaging Result Doc PS360 ---
CHEST-1 VIEW - 09/25/2018 INDICATION: SOB COMPARISON: 09/24/2018 FINDINGS: Stable dense peripheral infiltrates in the lung bases is consistent with pulmonary fibrosis. Stable cardiomegaly and pulmonary vascular congestion. No new infiltrates or effusions. IMPRESSION: No change from prior. Electronically signed by Phillip Garcia 09/25/2018 7:43 AM
[2018-09-25 07:56] LABS: LYMPHS 4 % (21-51); MONO 8 % (1-9); SEGS 88 % (42-75)
[2018-09-25] MEDS: LACTULOSE PO SCH ×2 (08:25→23:36)
[2018-09-25] MEDS: LASIX IV SCH (08:25)
[2018-09-25] MEDS: BUSPAR PO SCH ×3 (08:28→21:24)
[2018-09-25] MEDS: LAMICTAL PO SCH (08:28)
[2018-09-25] MEDS: NEURONTIN PO SCH ×3 (08:28→21:23)
[2018-09-25] MEDS: KLOR-CON PO SCH (08:28)
[2018-09-25] MEDS: ATARAX PO SCH ×2 (08:29→21:23)
[2018-09-25] MEDS: PRINIVIL PO SCH (08:29)
[2018-09-25] MEDS: PROZAC PO SCH (08:29)
[2018-09-25] MEDS: CELEBREX PO SCH (08:29)
--- NOTE | 2018-09-25 09:00 | PROGRESS NOTE ---
DATE: 09/25/2018 SUBJECTIVE: The patient is doing better, sitting at the bedside. He has been using the BiPAP machine and the high-flow oxygen nasal cannula on and off. He is having good urine output, negative balance of around 20 L so far. Continue with same management. OBJECTIVE: Vital Signs: Temperature 97.9 degrees, pulse 94, respiratory rate 19, blood pressure 137/83, oxygen saturation 97% on high-flow oxygen through a nasal cannula. HEENT: Head normocephalic, no trauma. PERRLA. Neck: Supple. No JVD. No masses. Central trachea. Chest: Coarse breath sounds bilaterally with crackles at the bases and scattered rhonchi with some expiratory wheezing. Abdomen: Soft, nontender, nondistended. No hepatosplenomegaly. Extremities: No edema, no clubbing, no cyanosis. Neurological examination: The patient is alert and oriented x3. No focal deficits. LABORATORY: WBC 26.9, hemoglobin 11.6, hematocrit 35.7, platelets 238. Sodium 132, potassium 3.7, chloride 93, bicarbonate 28. BUN 13, creatinine 0.5, glucose 203, calcium 8.1. ASSESSMENT AND PLAN: 1. Acute hypoxemic and hypercapnic respiratory failure. Continue with the same management. He is still requiring high-flow oxygen. He is a heavy smoker' apparently he has been smoking 2 packs a day. Cessation has been discussed with this patient. 2. Bilateral interstitial ground-glass infiltrate, likely due to pneumonia. X-ray about the same compared with yesterday. We will continue with same management. 3. Chronic obstructive pulmonary disease exacerbation. Continue breathing treatment, antibiotics, oxygen supplementation and steroids. 4. Sepsis. Upon admission, this patient was hypotensive, tachycardic and tachypneic. Will have a source of infection. Sepsis has resolved. 5. History of bipolar disorder. Aware. 6. Depression. Continue with same management. 7. Gastroesophageal reflux disease. Continue with Nexium. 8. Chronic pain syndrome. This patient has been on Suboxone before at home, but now he has requested to not continue with the treatment. 9. Hypokalemia, resolved. 10. Leukocytosis, likely a combination of the infectious process and steroid use. cc: Gilbert Renteria MD
[2018-09-25] MEDS ORDERED: XANAX PO ONE (09:25)
[2018-09-25] MEDS: LEVAQUIN 500 MG/D5W 500 MG/100 ML IVPB IV SCH (12:30)
[2018-09-25] MEDS ORDERED: LASIX IV ONE (15:42)
[2018-09-25] MEDS: ULTRAM PO PRN (17:47)
--- NOTE | 2018-09-25 20:27 | PULMONOLOGY PROGRESS NOTE ---
DATE: 09/25/2018 SUBJECTIVE: The patient is awake, alert, and conversant. He remains on high-flow nasal cannula. He reports his breathing has improved. OBJECTIVE: Vital Signs: Blood pressure 131/86, heart rate 88, respiratory rate 21, oxygen saturation 92% on high-flow O2. The patient has been afebrile for the last 24 hours. HEENT: Pupils are equal and reactive. Oropharynx is clear. Neck: Is supple. Chest: Reveals crackles in both lung bases. Cardiac: S1-S2. Abdomen: Is soft without hepatosplenomegaly. Extremities: Without edema. LABORATORIES: White blood count 26,000, hemoglobin 11.6, platelet count 238,000. Arterial blood gas reveals a pH 7.43, pCO2 of 48, PO2 of 58. Sodium 132, potassium 3.7, chloride 93, BUN 13, creatinine 0.5. IMPRESSION: A 53-year-old smoker with 1. Acute respiratory distress syndrome/interstitial pneumonia. 2. Acute hypoxemic respiratory failure. 3. Acute hypercapnic respiratory failure. 4. Gastroesophageal reflux. 5. History of bipolar disorder. 6. Chronic pain syndrome. RECOMMENDATIONS: 1. Agree with antibiotics but not convinced this is an infectious process. 2. Continue steroid dosing. This may represent desquamative interstitial pneumonitis. 3. Encourage smoking cessation. 4. Wean oxygen as tolerated. 5. Continue ICU monitoring. His pulmonary status remains marginal. cc: Hemanth Ray MD
[2018-09-25] MEDS: KLONOPIN PO SCH (21:24)
[2018-09-26] MEDS: VANCOMYCIN 2,000 MG in NS 500 ML IV SCH ×2 (01:30→14:43)
[2018-09-26] MEDS: SOLU-MEDROL IV SCH ×4 (01:30→20:28)
[2018-09-26] MEDS: NEXIUM PO SCH ×2 (05:43→17:15)
[2018-09-26] MEDS: AZACTAM 1 GM in NS 50 ML IV SCH ×3 (05:43→23:50)
[2018-09-26 05:51] LABS: ALLEN TEST YES; BE 6.1 mmoll (-3.0-3.0); BLOOD TYPE ARTERIAL; HCO3-(ACT) 29.6 mmoll (20.0-26.0); METHB 0.9 % (0.0-1.5); O2(CT) 16.8 mL/dL (15.0-23.0); PCO2(98.6) 46 mmHg (35-45); PO2(98.6) 65 mmHg (60-100); SAMPLE BLOOD; SAO2 94.7 % (95.0-100.0); pH(98.6) 7.44 (7.35-7.45)
[2018-09-26 05:56] LABS: MODALITY HIGH FLOW NASAL CAN
[2018-09-26 06:34] LABS: AGAP 12; BUN 14 mg/dL (8-22); CALCIUM 8.2 mg/dL (8.8-10.2); CHLORIDE 91 mmol/L (98-107); COSMO 270; CREATININE 0.5 mg/dL (0.7-1.2); ESTIMATED GFR > 60; GLUCOSE 185 mg/dL (70-104); SODIUM 132 mmol/L (136-145); TCO2 29 mmol/L (25-35)
[2018-09-26 07:01] LABS: BASO# 0.02 X1000 (0.0-0.2); BASO% 0.1 % (0.0-0.8); EOS# 0.08 X1000 (0.0-0.7); EOS% 0.3 % (0.0-10.0); HEMATOCRIT 36.3 % (42.0-52.0); HEMOGLOBIN 11.8 g/dL (14.0-18.0); IMM GRAN% 0.7 % (0.0-0.5); LYMPH# 1.09 X1000 (1.2-3.4); LYMPH% 3.7 % (20.5-51.1); MCHC 32.5 g/dL (33-37); MONO# 2.46 X1000 (0.11-0.59); MONO% 8.4 % (1.7-9.3); MPV 9.7 FL (7.4-10.4); NEUT% 86.8 % (42.2-75.2); PLT 312 X1000 (130-400); RBC 4.22 XMIL (4.7-6.1); RDW 12.8 % (11.5-14.5); WBC 29.15 X1000 (4.8-10.8)
--- NOTE | 2018-09-26 07:22 | Diag Imaging Result Doc PS360 ---
CHEST-1 VIEW - 09/26/2018 INDICATION: SOB COMPARISON: 09/25/2018 FINDINGS: Stable significant coarse interstitial opacities in the lung bases bilaterally. Stable cardiomegaly. No pneumothorax or pleural effusion. IMPRESSION: No change from prior. Electronically signed by Phillip Garcia 09/26/2018 7:20 AM
[2018-09-26 07:44] LABS: LYMPHS 3 % (21-51); MONO 8 % (1-9); SEGS 89 % (42-75)
[2018-09-26] MEDS: DUONEB (A & A) INH SCH ×5 (07:48→22:59)
[2018-09-26] MEDS: LACTULOSE PO SCH ×2 (09:05→20:28)
[2018-09-26] MEDS: LAMICTAL PO SCH (09:08)
[2018-09-26] MEDS: CELEBREX PO SCH (09:08)
[2018-09-26] MEDS: KLOR-CON PO SCH (09:08)
[2018-09-26] MEDS: NEURONTIN PO SCH ×3 (09:08→20:28)
[2018-09-26] MEDS: PRINIVIL PO SCH (09:08)
[2018-09-26] MEDS: ATARAX PO SCH ×2 (09:08→20:28)
[2018-09-26] MEDS: LASIX IV SCH ×2 (09:08→17:14)
[2018-09-26] MEDS: PROZAC PO SCH (09:08)
[2018-09-26] MEDS: BUSPAR PO SCH ×3 (09:10→20:28)
--- NOTE | 2018-09-26 09:31 | PROGRESS NOTE ---
DATE: 09/26/2018 SUBJECTIVE: The patient is feeling better today. He is still using high-flow oxygen nasal cannula. X-ray looks about the same compared with yesterday. We do have a negative balance of around 24 L so far. No signs of dehydration or kidney injury, will monitor. No acute events overnight. OBJECTIVE: Vital Signs: Temperature 98.2 degrees, pulse 88, respiratory rate 20, blood pressure 137/76, oxygen saturation 94% on a high-flow nasal cannula. HEENT: Head normocephalic. No trauma. PERRLA. Neck: Supple. No JVD. No masses. Central trachea. Chest: Coarse breath sounds bilaterally with some crepitus and rhonchi bilaterally, no wheezing. Abdomen: Soft, nontender, nondistended. No hepatosplenomegaly. Extremities: No edema, no clubbing, no cyanosis. Neurological: The patient is alert and oriented x3. No focal deficits. LABORATORY DATA: WBC 29.1, hemoglobin 11.8, hematocrit 36.3, platelets 312,000. Sodium 132, potassium 4, chloride 91, bicarbonate 29, BUN 14, creatinine 0.5, glucose 185, calcium 8.2. ASSESSMENT AND PLAN: 1. Acute hypoxemic and hypercapnic respiratory failure. Continue with same management. He is still requiring high-flow oxygen. He is a heavy smokers and apparently he has been smoking 2 packs a day. Cessation has been discussed with the patient and he agreed with that. 2. Bilateral interstitial ground-glass infiltrates, ARDS with possible pneumonia or interstitial pneumonitis, Pulmonary department on board. We will continue with the same management. 3. Chronic obstructive pulmonary disease exacerbation. Continue breathing treatment, antibiotics, oxygen supplementation and steroids. 4. Sepsis. Upon admission, this patient was hypotensive, tachycardic and tachypneic, and it looks like we have a source of infection with pneumonia. 5. History of bipolar disorder. Aware. 6. Depression. Aware. No signs of depression at this moment. 7. Gastroesophageal reflux disease. Continue with Nexium. 8. Chronic pain syndrome. This patient has been on Suboxone before at home but now he has requested to discontinue this treatment. 9. Hypokalemia, resolved. 10. Leukocytosis, likely a combination of the infection process and steroid use. cc: Gilbert Renteria MD
[2018-09-26] MEDS: LEVAQUIN 500 MG/D5W 500 MG/100 ML IVPB IV SCH (13:05)
--- NOTE | 2018-09-26 19:44 | PULMONOLOGY PROGRESS NOTE ---
DATE: 09/26/2018 SUBJECTIVE: The patient is awake, alert, and conversant. He reports his breathing has marginally improved. He denies significant sputum production. OBJECTIVE: Vital Signs: The patient has been afebrile for the last 24 hours. Blood pressure 123/65, heart rate 94, respiratory rate 18, oxygen saturation 99% on high-flow O2. HEENT: Pupils are equal and reactive. Oropharynx is clear. Neck: Supple. Chest: Reveals prolonged expiratory phase with crackles predominantly in the lung bases. Cardiac Exam: S1-S2. Abdomen: Soft. Extremities: Without edema. LABORATORIES: Chest x-ray reveals coarse interstitial markings with a basilar predominance and a generous cardiac silhouette. No change from yesterday. Arterial blood gas: pH of 7.44, pCO2 of 46, PO2 of 65. White blood count 29, hemoglobin 11.8, platelet count 312,000. Sodium 132, potassium 4.0, chloride 91, bicarbonate 29, BUN 14, creatinine 0.5. IMPRESSION: A 53-year-old smoker with: 1. Acute respiratory distress syndrome/possible desquamative interstitial pneumonitis. 2. Acute hypoxemic respiratory failure. 3. Acute hypercapnic respiratory failure. 4. Gastroesophageal reflux disease. 5. Bipolar disorder. 6. Chronic pain syndrome. RECOMMENDATIONS: 1. Continue antibiotics and steroids. 2. Continue to cycle high-flow O2, non-rebreather mask and BiPAP as tolerated. 3. Smoking cessation has been strongly encouraged. 4. Continue CICU monitoring. His respiratory status remains marginal. cc: Hemanth Ray MD
[2018-09-26] MEDS: KLONOPIN PO SCH (20:28)
[2018-09-26] MEDS: DUONEB (A & A) INH PRN (20:59)
[2018-09-27] MEDS: LASIX IV SCH ×2 (01:31→08:47)
[2018-09-27] MEDS: VANCOMYCIN 2,000 MG in NS 500 ML IV SCH ×2 (01:31→14:45)
[2018-09-27] MEDS: SOLU-MEDROL IV SCH ×4 (01:31→22:02)
[2018-09-27] MEDS: DUONEB (A & A) INH PRN (02:40)
[2018-09-27 04:41] LABS: ALLEN TEST YES; BE 7.5 mmoll (-3.0-3.0); BLOOD TYPE ARTERIAL; HCO3-(ACT) 30.6 mmoll (20.0-26.0); METHB 0.7 % (0.0-1.5); O2(CT) 14.8 mL/dL (15.0-23.0); PCO2(98.6) 44 mmHg (35-45); PO2(98.6) 54 mmHg (60-100); SAMPLE BLOOD; SAO2 92.7 % (95.0-100.0); THB 11.7 g/dL (11.5-17.4); pH(98.6) 7.47 (7.35-7.45)
[2018-09-27 05:00] LABS: O2HB 89.9 % (95.0-99.0)
[2018-09-27 05:01] LABS: MODALITY HIGH FLOW NASAL CAN
[2018-09-27] MEDS: NEXIUM PO SCH ×3 (05:07→16:16)
[2018-09-27] MEDS: AZACTAM 1 GM in NS 50 ML IV SCH ×3 (05:07→22:02)
[2018-09-27 06:30] LABS: ESTIMATED GFR > 60
[2018-09-27 06:31] LABS: BASO# 0.02 X1000 (0.0-0.2); BASO% 0.1 % (0.0-0.8); EOS# 0.05 X1000 (0.0-0.7); EOS% 0.2 % (0.0-10.0); HEMATOCRIT 38.8 % (42.0-52.0); HEMOGLOBIN 12.8 g/dL (14.0-18.0); IMM GRAN# 0.24 X1000 (0.0-0.04); IMM GRAN% 0.8 % (0.0-0.5); LYMPH# 1.69 X1000 (1.2-3.4); LYMPH% 5.5 % (20.5-51.1); MCH 28.3 PG (27-31); MCV 85.7 FL (81-99); MONO# 1.95 X1000 (0.11-0.59); MONO% 6.4 % (1.7-9.3); MPV 9.7 FL (7.4-10.4); NEUT# 26.54 X1000 (1.4-6.5); PLT 395 X1000 (130-400); RBC 4.53 XMIL (4.7-6.1); RDW 12.8 % (11.5-14.5); WBC 30.49 X1000 (4.8-10.8)
[2018-09-27 06:39] LABS: AGAP 13; BUN 15 mg/dL (8-22); CALCIUM 8.4 mg/dL (8.8-10.2); CHLORIDE 89 mmol/L (98-107); COSMO 267; CREATININE 0.6 mg/dL (0.7-1.2); GLUCOSE 196 mg/dL (70-104); POTASSIUM 3.7 mmol/L (3.5-5.1); SODIUM 130 mmol/L (136-145); TCO2 28 mmol/L (25-35)
--- NOTE | 2018-09-27 07:13 | Diag Imaging Result Doc PS360 ---
CHEST-1 VIEW - 09/27/2018 INDICATION: SOB COMPARISON: 09/26/2018 FINDINGS: Stable mild cardiomegaly. Stable diffuse bilateral interstitial opacities. No pneumothorax or significant pleural effusion. IMPRESSION: No change from prior. Electronically signed by Phillip aGrcia 09/27/2018 7:11 AM
[2018-09-27 07:34] LABS: LYMPHS 8 % (21-51); MONO 2 % (1-9); SEGS 90 % (42-75)
[2018-09-27] MEDS: DUONEB (A & A) INH SCH ×5 (07:50→23:14)
--- NOTE | 2018-09-27 08:32 | PROGRESS NOTE ---
DATE: 09/27/2018 SUBJECTIVE: No acute events overnight. No changes compared with yesterday, this patient states that he is feeling a little bit better. OBJECTIVE: Vitals: Temperature 97.9 degrees, pulse 102, respiratory rate 20, blood pressure 135/78. Oxygen saturation 93% on a high-flow nasal cannula. HEENT: Head normocephalic, no trauma. PERRLA. Neck: Supple. No JVD. No masses. Central trachea. Chest: Coarse breath sounds bilaterally with some crepitus and rhonchi bilaterally. No wheezing. Abdomen: Soft, nontender, nondistended. No hepatosplenomegaly. Extremities: No edema, no clubbing, no cyanosis. Neurological: The patient is alert and oriented x3. No focal deficits. LABORATORY: WBC 30.4, hemoglobin 12.8, hematocrit 38.8, platelets 395,000. Sodium 130, potassium 3.7, chloride 89, bicarbonate 28, BUN 15, creatinine 0.6, glucose 196, calcium 8.4. ASSESSMENT AND PLAN: 1. Acute hypoxemic and hypercapnic respiratory failure. Continue with same management. He is still requiring high flow oxygen. He is a heavy smoker. Apparently, he has been smoking 2 packs a day. Cessation has been discussed with this patient and he agreed with that. 2. Bilateral interstitial ground-glass infiltrates, possible ARDS, with either pneumonia, interstitial pneumonitis, Pulmonary Department on board. We will continue with same treatment. 3. Chronic obstructive pulmonary disease exacerbation. Continue breathing treatment, steroids, antibiotics, and oxygen supplementation. 4. Sepsis. Open admission, this patient was hypotensive, tachycardic, fatigued, and tachypneic, and we do have a source of infection. 5. History of bipolar disorder. Aware. 6. History of depression. Aware. No signs of depression at this moment. 7. Gastroesophageal reflux disease. Continue with Nexium. 8. Chronic pain syndrome. This patient has been on Suboxone before at home, but now he has been requesting the medication to be discontinued. 9. Hypokalemia, resolved. 10. Leukocytosis. Likely secondary to steroid use and possible infection. cc: Gilbert Renteria MD
[2018-09-27] MEDS: PROZAC PO SCH (08:47)
[2018-09-27] MEDS: NEURONTIN PO SCH ×3 (08:47→22:02)
[2018-09-27] MEDS: LAMICTAL PO SCH (08:47)
[2018-09-27] MEDS: CELEBREX PO SCH (08:48)
[2018-09-27] MEDS: LACTULOSE PO SCH ×2 (08:48→22:02)
[2018-09-27] MEDS: KLOR-CON PO SCH (08:48)
[2018-09-27] MEDS: BUSPAR PO SCH ×3 (08:48→22:02)
[2018-09-27] MEDS: ATARAX PO SCH ×2 (08:48→22:02)
[2018-09-27] MEDS: PRINIVIL PO SCH (08:48)
[2018-09-27] MEDS: LEVAQUIN 500 MG/D5W 500 MG/100 ML IVPB IV SCH (13:08)
[2018-09-27] MEDS: TYLENOL PO PRN (16:21)
[2018-09-27] MEDS: ULTRAM PO PRN (16:21)
[2018-09-27] MEDS ORDERED: LASIX IV ONE (17:21)
--- NOTE | 2018-09-27 20:21 | PULMONOLOGY PROGRESS NOTE ---
DATE: 09/27/2018 SUBJECTIVE: The patient is awake, alert, and conversant. He reports he had a panic attack earlier today. He remains on high-flow nasal cannula. OBJECTIVE: The patient has been afebrile for the last 24 hours. Blood pressure 121/62, heart rate 95, respiratory rate 22, oxygen saturation 92%. HEENT: Pupils are equal and reactive. Oropharynx is clear. Neck: Supple. Chest: Reveals shallow breath sounds bilaterally with crackles in both lung bases. Cardiac Exam: S1-S2. Abdomen: Soft. Extremities: Reveal trace to 1+ peripheral. LABORATORIES: Chest x-ray reveals generous cardiac silhouette with diffuse bilateral infiltrates with a basilar predominance. White blood count 30,000, hemoglobin 12.8, platelet 395,000. Sodium 130, potassium 3.7, chloride 89, bicarbonate 28, BUN 15, creatinine 0.6. ProBNP 1570. Arterial blood gas pH 7.47, pCO2 of 44, PO2 of 54. IMPRESSION: A 53-year-old with 1. Acute respiratory distress syndrome/possible desquamative interstitial pneumonitis. 2. Acute hypoxemic respiratory failure. 3. Acute hypercapnic respiratory failure. 4. Gastroesophageal reflux. 5. Chronic pain syndrome. 6. Bipolar disorder. RECOMMENDATION: 1. Continue antibiotics and steroids. 2. Continue to cycle high-flow O2, BiPAP, and non-rebreather mask as tolerated/needed. 3. Smoking cessation strongly encouraged each time patient has been evaluated. 4. Continue current CIC monitoring. Patient is too unstable for the routine medical floor. cc: Hemanth Ray MD
[2018-09-27] MEDS: KLONOPIN PO SCH (22:02)
[2018-09-28] MEDS: SOLU-MEDROL IV SCH ×4 (01:04→21:08)
[2018-09-28] MEDS: VANCOMYCIN 2,000 MG in NS 500 ML IV SCH ×2 (01:04→13:06)
[2018-09-28] MEDS: DUONEB (A & A) INH PRN ×2 (03:18→13:22)
[2018-09-28 05:11] LABS: ALLEN TEST YES; BE 2.5 mmoll (-3.0-3.0); BLOOD TYPE ARTERIAL; HCO3-(ACT) 26.7 mmoll (20.0-26.0); METHB 0.7 % (0.0-1.5); O2(CT) 17.4 mL/dL (15.0-23.0); PCO2(98.6) 48 mmHg (35-45); PO2(98.6) 69 mmHg (60-100); SAMPLE BLOOD; SAO2 95.2 % (95.0-100.0); THB 13.4 g/dL (11.5-17.4); pH(98.6) 7.38 (7.35-7.45)
[2018-09-28 05:19] LABS: MODALITY HIGH FLOW NASAL CAN
[2018-09-28 05:32] LABS: BASO# 0.01 X1000 (0.0-0.2); HEMATOCRIT 39.5 % (42.0-52.0); HEMOGLOBIN 13.1 g/dL (14.0-18.0); IMM GRAN# 0.21 X1000 (0.0-0.04); IMM GRAN% 0.9 % (0.0-0.5); LYMPH# 1.37 X1000 (1.2-3.4); LYMPH% 5.6 % (20.5-51.1); MCH 28.3 PG (27-31); MCHC 33.2 g/dL (33-37); MCV 85.3 FL (81-99); MONO# 1.67 X1000 (0.11-0.59); MONO% 6.8 % (1.7-9.3); MPV 9.6 FL (7.4-10.4); NEUT# 21.16 X1000 (1.4-6.5); NEUT% 86.7 % (42.2-75.2); PLT 401 X1000 (130-400); RBC 4.63 XMIL (4.7-6.1); WBC 24.42 X1000 (4.8-10.8)
[2018-09-28 05:49] LABS: AGAP 12; BUN 16 mg/dL (8-22); CALCIUM 8.5 mg/dL (8.8-10.2); CHLORIDE 92 mmol/L (98-107); COSMO 273; CREATININE 0.5 mg/dL (0.7-1.2); ESTIMATED GFR > 60; GLUCOSE 199 mg/dL (70-104); POTASSIUM 4.2 mmol/L (3.5-5.1); SODIUM 133 mmol/L (136-145); TCO2 29 mmol/L (25-35)
[2018-09-28] MEDS: NEXIUM PO SCH ×2 (06:06→14:21)
[2018-09-28] MEDS: AZACTAM 1 GM in NS 50 ML IV SCH ×3 (06:06→21:08)
[2018-09-28] MEDS: ULTRAM PO PRN ×2 (06:16→15:11)
--- NOTE | 2018-09-28 07:18 | Diag Imaging Result Doc PS360 ---
EXAM: CHEST-1 VIEW INDICATION: SOB TECHNIQUE: One view COMPARISON: 09/27/2018 FINDINGS: Bilateral interstitial and airspace consolidations with a basilar predominance are approximately stable. No new consolidation is identified. Cardiac silhouette is stable. IMPRESSION: Stable chest. Electronically signed by Sree Butler 09/28/2018 7:16 AM
[2018-09-28] MEDS: DUONEB (A & A) INH SCH ×5 (07:40→23:05)
[2018-09-28] MEDS: LACTULOSE PO SCH ×2 (08:05→21:08)
[2018-09-28] MEDS: PRINIVIL PO SCH (08:05)
[2018-09-28] MEDS: NEURONTIN PO SCH ×3 (08:05→21:08)
[2018-09-28] MEDS: PROZAC PO SCH (08:06)
[2018-09-28] MEDS: LAMICTAL PO SCH (08:06)
[2018-09-28] MEDS: KLOR-CON PO SCH (08:06)
[2018-09-28] MEDS: BUSPAR PO SCH ×3 (08:06→21:08)
[2018-09-28] MEDS: CELEBREX PO SCH (08:06)
[2018-09-28] MEDS: ATARAX PO SCH ×2 (08:06→21:08)
[2018-09-28] MEDS: TYLENOL PO PRN ×2 (08:07→15:12)
[2018-09-28] MEDS: LASIX IV SCH (08:07)
--- NOTE | 2018-09-28 08:42 | PROGRESS NOTE ---
DATE: 09/28/2018 SUBJECTIVE: No acute events overnight. No changes compared with yesterday. No chest x-ray changes. OBJECTIVE: Vital Signs: Temperature 98 degrees, pulse 102, respiratory rate 18, blood pressure 127/74, oxygen saturation 92 on high-flow nasal cannula. HEENT: Head normocephalic. No trauma. PERRLA. Neck: Supple. No JVD. No masses. Central trachea. Chest: Decreased breath sounds bilaterally with coarse breath sounds, some crepitus and rhonchi scattered. No wheezing. Abdomen: Soft, nontender, nondistended. No hepatosplenomegaly. Extremities: No edema, no clubbing, no cyanosis. Neurological Examination: The patient is alert and oriented x3. No focal neurological deficits. Laboratory: WBC 24.2, hemoglobin 13, hematocrit 39.5, platelets 401,000. Sodium 133, potassium 4.2, chloride 92, bicarbonate 29, BUN 16, creatinine 0.5, glucose 199, calcium 8.5. ASSESSMENT AND PLAN: 1. Acute hypoxemic and hypercapnic respiratory failure. Continue with the same management. He is still requiring high-flow oxygen. He is a heavy smoker. Apparently, he has been smoking at least 2 packs a day. Cessation has been discussed with this patient and he agreed with that. 2. Bilateral interstitial ground-glass infiltrates, likely acute respiratory distress syndrome with possible pneumonia versus desquamative interstitial pneumonitis. Pulmonary department on board. He is still requiring high-flow oxygen. 3. Chronic obstructive pulmonary disease exacerbation. Continue breathing treatments, steroids, antibiotics, and oxygen supplementation. 4. Sepsis. Upon admission, this patient was hypotensive, tachycardic, tachypneic. Source of infection as well. 5. History of bipolar disorder. Aware. 6. History of depression. Aware. 7. Gastroesophageal reflux disease. Continue with Nexium. 8. Chronic pain syndrome. This patient has been on Suboxone before at home but now he has been requested to stop this medication. 9. Hypokalemia, resolved. 10. Leukocytosis, likely secondary to steroid and possible infection. Today, it looks better. cc: Gilbert Renteria MD
[2018-09-28] MEDS: LEVAQUIN 500 MG/D5W 500 MG/100 ML IVPB IV SCH (12:37)
[2018-09-28] MEDS: KLONOPIN PO SCH (21:08)
[2018-09-29] MEDS: SOLU-MEDROL IV SCH ×4 (01:59→20:04)
[2018-09-29] MEDS: VANCOMYCIN 2,000 MG in NS 500 ML IV SCH ×2 (01:59→13:34)
[2018-09-29] MEDS: NEXIUM PO SCH ×2 (05:14→15:13)
[2018-09-29] MEDS: AZACTAM 1 GM in NS 50 ML IV SCH ×3 (05:14→20:04)
[2018-09-29 05:28] LABS: ALLEN TEST YES; BE 5.2 mmoll (-3.0-3.0); BLOOD TYPE ARTERIAL; HCO3-(ACT) 28.9 mmoll (20.0-26.0); PCO2(98.6) 43 mmHg (35-45); PO2(98.6) 67 mmHg (60-100); SAMPLE BLOOD; pH(98.6) 7.45 (7.35-7.45)
[2018-09-29 05:29] LABS: BASO# 0.02 X1000 (0.0-0.2); BASO% 0.1 % (0.0-0.8); HEMATOCRIT 38.8 % (42.0-52.0); HEMOGLOBIN 12.7 g/dL (14.0-18.0); IMM GRAN# 0.25 X1000 (0.0-0.04); IMM GRAN% 0.9 % (0.0-0.5); LYMPH# 0.92 X1000 (1.2-3.4); LYMPH% 3.4 % (20.5-51.1); MCHC 32.7 g/dL (33-37); MCV 85.5 FL (81-99); MONO# 3.18 X1000 (0.11-0.59); MONO% 11.7 % (1.7-9.3); MPV 9.4 FL (7.4-10.4); NEUT# 22.71 X1000 (1.4-6.5); NEUT% 83.9 % (42.2-75.2); PLT 394 X1000 (130-400); RBC 4.54 XMIL (4.7-6.1); RDW 13.3 % (11.5-14.5); WBC 27.08 X1000 (4.8-10.8)
[2018-09-29 05:29] LABS: MODALITY CANNULA
[2018-09-29 05:45] LABS: AGAP 6; BUN 20 mg/dL (8-22); CALCIUM 8.3 mg/dL (8.8-10.2); CHLORIDE 95 mmol/L (98-107); COSMO 271; CREATININE 0.6 mg/dL (0.7-1.2); ESTIMATED GFR > 60; GLUCOSE 171 mg/dL (70-104); SODIUM 132 mmol/L (136-145); TCO2 31 mmol/L (25-35)
[2018-09-29] MEDS: ULTRAM PO PRN ×2 (06:28→15:17)
[2018-09-29] MEDS: TYLENOL PO PRN (06:28)
--- NOTE | 2018-09-29 07:25 | Diag Imaging Result Doc PS360 ---
EXAM: CHEST-1 VIEW 09/29/2018 HISTORY: SOB TECHNIQUE: AP portable at 0615 COMMENT: There is interstitial and alveolar opacity in both lungs particularly in the lower lobes. This was also present on 09/28/2018 and 09/27/2018 without significant change. IMPRESSION: Pulmonary edema and/or pneumonia. Electronically signed by Shay Sinha 09/29/2018 7:22 AM
[2018-09-29] MEDS: DUONEB (A & A) INH SCH ×5 (07:43→23:16)
[2018-09-29] MEDS: CELEBREX PO SCH (08:44)
[2018-09-29] MEDS: PROZAC PO SCH (08:44)
[2018-09-29] MEDS: BUSPAR PO SCH ×3 (08:44→20:04)
[2018-09-29] MEDS: ATARAX PO SCH ×2 (08:44→20:05)
[2018-09-29] MEDS: NEURONTIN PO SCH ×3 (08:44→20:04)
[2018-09-29] MEDS: LAMICTAL PO SCH (08:45)
[2018-09-29] MEDS: LACTULOSE PO SCH ×2 (08:45→20:04)
[2018-09-29] MEDS: PRINIVIL PO SCH (08:45)
[2018-09-29] MEDS: LASIX IV SCH (08:45)
[2018-09-29] MEDS: KLOR-CON PO SCH (08:48)
--- NOTE | 2018-09-29 08:55 | PROGRESS NOTE ---
DATE: 09/29/2018 SUBJECTIVE: Mr. Baker is sitting up in his recliner. He is feeling better. I explained that they are trying to wean down his oxygen so he can try and attempt to go home, and get him approved for his high-flow nasal cannula. OBJECTIVE: Vital Signs: Temperature 97.7 degrees pulse 85, respirations 18, blood pressure 125/79. Eyes: Pupils were equal. Neck: Note his neck veins were not distended. Lungs: Clear anterior and posterior in all lung miller. Cardiovascular: Regular rhythm and rate without murmur or S3. Abdomen: Soft. Skin: Skin is warm and dry. Weight: 153 pounds. X-RAYS: Chest x-ray with pulmonary edema or pneumonia. There is interstitial alveolar opacity in both lungs, particular in the lower lobes, which were present on 09/28/2018 and 09/27/2018. No significant change. ASSESSMENT AND PLAN: 1. Acute hypoxemic hypercapnic respiratory failure. Continue same management. Still requiring high-flow oxygen. History of heavy smoker, and smoking at least 2 packs a day for several years. Emphasize the importance of cessation of cigarette smoking. He understands. 2. Bilateral interstitial ground-glass infiltrates, likely acute respiratory distress syndrome, possibly pneumonia versus desquamative interstitial pneumonitis. Pulmonary following. Trying to wean down his oxygen in attempts to go home with high-flow oxygen. 3. Chronic obstructive pulmonary disease exacerbation. Continue his bronchodilators and steroids and supplementary oxygen. 4. Sepsis on admission. The patient was hypotensive, tachycardia, tachypnea. Source appears to be resolved. 5. History of bipolar disorder, aware. 6. History of depression. 7. Gastroesophageal reflux disease. Continue Nexium. 8. Chronic pain syndrome. Has been on Suboxone before at home, but now he has requested to stop this medication. 9. Hypokalemia. 10. Leukocytosis secondary to steroid and possible underlying infection. REVIEW OF ORDERS: On Klonopin 1 mg at bedtime, albuterol ipratropium 3 mL inhaler q. 2 hours p.r.n. and then he gets that scheduled q. 4 hours while awake, aztreonam 1 g IV q. 8 hours, BuSpar 20 mg p.o. 3 times a day, Celebrex 200 mg a day, Nexium 40 mg p.o. q. 12 hours, Prozac 60 mg a day, Lasix 40 mg IV q. 24 hours, Neurontin 300 mg p.o. 3 times a day, Atarax 50 mg p.o. b.i.d., lactulose 30 mL b.i.d., Lamictal 200 mg daily, levofloxacin 500 mg IV q. 24 hours, Prinivil 20 mg daily, methylprednisone at 40 mg IV q. 6 hours. Getting potassium chloride extra-strength 40 mEq daily, Ultram 50 mg q. 6 hours p.r.n. He is on vancomycin 2 g IV q. 12. MICROBIOLOGY: He did have a stool sample on 09/21 which was negative for Clostridium difficile toxin. No growth from his blood culture on 09/14 or urine culture on 09/14. His belly is doing better. He is eating. His bowels are moving. LABS: From today white count still elevated at 27,080, hematocrit is 38, platelet count 394,000. Chemistry: Sodium 132, potassium 5.0, chloride 95, BUN 20, creatinine 0.6. cc: Rj Broderick MD
[2018-09-29] MEDS: LEVAQUIN 500 MG/D5W 500 MG/100 ML IVPB IV SCH (13:34)
[2018-09-29] MEDS: KLONOPIN PO SCH (20:03)
[2018-09-30] MEDS: VANCOMYCIN 2,000 MG in NS 500 ML IV SCH ×2 (01:57→13:57)
[2018-09-30] MEDS: SOLU-MEDROL IV SCH ×4 (02:00→20:45)
[2018-09-30] MEDS: NEXIUM PO SCH ×2 (02:08→20:40)
[2018-09-30 05:32] LABS: ALLEN TEST YES; BE 4.9 mmoll (-3.0-3.0); BLOOD TYPE ARTERIAL; HCO3-(ACT) 28.7 mmoll (20.0-26.0); PCO2(98.6) 41 mmHg (35-45); PO2(98.6) 78 mmHg (60-100); SAMPLE BLOOD; pH(98.6) 7.46 (7.35-7.45)
[2018-09-30 05:34] LABS: MODALITY CANNULA
[2018-09-30] MEDS: AZACTAM 1 GM in NS 50 ML IV SCH ×3 (05:37→20:40)
[2018-09-30 06:06] LABS: AGAP 10; BUN 21 mg/dL (8-22); CALCIUM 8.3 mg/dL (8.8-10.2); CHLORIDE 95 mmol/L (98-107); COSMO 271; CREATININE 0.5 mg/dL (0.7-1.2); ESTIMATED GFR > 60; GLUCOSE 164 mg/dL (70-104); POTASSIUM 4.9 mmol/L (3.5-5.1); SODIUM 132 mmol/L (136-145); TCO2 27 mmol/L (25-35)
[2018-09-30 06:14] LABS: BASO# 0.02 X1000 (0.0-0.2); BASO% 0.1 % (0.0-0.8); EOS# 0.01 X1000 (0.0-0.7); HEMATOCRIT 39.4 % (42.0-52.0); HEMOGLOBIN 13.1 g/dL (14.0-18.0); IMM GRAN# 0.18 X1000 (0.0-0.04); IMM GRAN% 0.7 % (0.0-0.5); MCH 28.5 PG (27-31); MCHC 33.2 g/dL (33-37); MCV 85.8 FL (81-99); MONO% 9.8 % (1.7-9.3); MPV 9.4 FL (7.4-10.4); NEUT# 23.42 X1000 (1.4-6.5); NEUT% 85.4 % (42.2-75.2); PLT 431 X1000 (130-400); RBC 4.59 XMIL (4.7-6.1); RDW 13.2 % (11.5-14.5); WBC 27.43 X1000 (4.8-10.8)
[2018-09-30 07:16] LABS: LYMPHS 4 % (21-51); MONO 6 % (1-9); SEGS 88 % (42-75)
--- NOTE | 2018-09-30 07:19 | Diag Imaging Result Doc PS360 ---
EXAM: CHEST-1 VIEW HISTORY: SOB TECHNIQUE: Portable chest single view COMPARISON: 09/29/2018 FINDINGS: Poor inspiratory effort. There are dense infiltrates in the mid and lower lungs. No cardiomegaly. No pleural effusions identified. The overall appearance is similar to the prior exam. IMPRESSION: Stable chest. Electronically signed by Markus Joiner 09/30/2018 7:16 AM
[2018-09-30] MEDS: DUONEB (A & A) INH SCH ×5 (07:46→23:30)
[2018-09-30] MEDS: LAMICTAL PO SCH (08:16)
[2018-09-30] MEDS: PROZAC PO SCH (08:16)
[2018-09-30] MEDS: ATARAX PO SCH ×2 (08:17→20:40)
[2018-09-30] MEDS: PRINIVIL PO SCH (08:17)
[2018-09-30] MEDS: CELEBREX PO SCH (08:17)
[2018-09-30] MEDS: LACTULOSE PO SCH ×2 (08:17→08:36)
[2018-09-30] MEDS: NEURONTIN PO SCH ×3 (08:17→20:45)
[2018-09-30] MEDS: KLOR-CON PO SCH (08:17)
[2018-09-30] MEDS: LASIX IV SCH (08:17)
[2018-09-30] MEDS: BUSPAR PO SCH ×3 (08:18→20:40)
[2018-09-30] MEDS: TYLENOL PO PRN (08:35)
--- NOTE | 2018-09-30 09:16 | PROGRESS NOTE ---
DATE: 09/30/2018 SUBJECTIVE: He says he had a pretty good night. He sitting up in his recliner. We have been able to adjust his FiO2 down to 70%. He is eating well. Bowels are moving. No abdominal bloating. OBJECTIVE: Vital signs: He is afebrile. Temperature 98.1 degrees, pulse 100, respirations 23, blood pressure 141/83. HEENT: Pupils are equal round. Lungs: Clear in all lung miller. Cardiovascular: Regular rhythm and rate without murmur or S3. Abdomen: Soft. Skin: Warm and dry. Genitourinary: Urine output is 7000 mL. IMAGING: Chest x-ray. Stable chest. Poor inspiratory effort. There are dense infiltrates in the mid and lower lungs. No cardiomegaly. No pleural effusion identified. Overall appearance is improved. ASSESSMENT AND PLAN: 1. Acute hypoxemic, hypercapnic respiratory failure. He is on high-flow nasal flow oxygen and able to adjust his FiO2 down, trying to get it down to a level where he will be able to go home. 2. Bilateral interstitial ground-glass infiltrates and suspect likely it was respiratory distress syndrome. Seems to be improving but this could possibly have been a pneumonia versus desquamative interstitial pneumonitis, but he does seem to be improving. 3. Chronic obstructive pulmonary disease with exacerbation. 4. Sepsis on admission. 5. History of bipolar disorder. Aware. 6. History of depression. 7. Gastroesophageal reflux disease. He is on Nexium. 8. Chronic pain syndrome. He was on Suboxone before but has requested to stay off that. 9. Hypokalemia. 10. Leukocytosis. Note that his white count is still 27,000. I suspect that is secondary to steroids. Electrolytes look good. Renal function looks good. Sodium 132, potassium 4.9, chloride 95, BUN 21, creatinine 0.5. cc: Rj Broderick MD
[2018-09-30] MEDS: LEVAQUIN 500 MG/D5W 500 MG/100 ML IVPB IV SCH (13:57)
[2018-09-30] MEDS: ULTRAM PO PRN (20:45)
[2018-09-30] MEDS: KLONOPIN PO SCH (20:45)
[2018-09-30] MEDS: DUONEB (A & A) INH PRN (21:08)
[2018-10-01] MEDS: VANCOMYCIN 2,000 MG in NS 500 ML IV SCH ×2 (01:45→13:43)
[2018-10-01] MEDS: LACTULOSE PO SCH ×4 (02:04→21:23)
[2018-10-01] MEDS: SOLU-MEDROL IV SCH ×4 (03:04→20:46)
[2018-10-01] MEDS: ULTRAM PO PRN ×3 (03:06→19:40)
[2018-10-01] MEDS: TYLENOL PO PRN ×2 (03:08→19:41)
[2018-10-01] MEDS: DUONEB (A & A) INH PRN (04:05)
[2018-10-01 05:15] LABS: ALLEN TEST YES; BE 1.1 mmoll (-3.0-3.0); BLOOD TYPE ARTERIAL; HCO3-(ACT) 25.6 mmoll (20.0-26.0); METHB 1.3 % (0.0-1.5); O2(CT) 15.8 mL/dL (15.0-23.0); O2HB 90.4 % (95.0-99.0); PCO2(98.6) 45 mmHg (35-45); PO2(98.6) 64 mmHg (60-100); SAMPLE BLOOD; SAO2 95.2 % (95.0-100.0); THB 12.4 g/dL (11.5-17.4); pH(98.6) 7.38 (7.35-7.45)
[2018-10-01 05:16] LABS: MODALITY HIGH FLOW NASAL CAN
[2018-10-01] MEDS: AZACTAM 1 GM in NS 50 ML IV SCH ×3 (05:33→21:23)
[2018-10-01 06:18] LABS: BASO# 0.01 X1000 (0.0-0.2); HEMATOCRIT 36.8 % (42.0-52.0); HEMOGLOBIN 12.2 g/dL (14.0-18.0); IMM GRAN# 0.16 X1000 (0.0-0.04); IMM GRAN% 0.8 % (0.0-0.5); LYMPH# 1.01 X1000 (1.2-3.4); LYMPH% 4.8 % (20.5-51.1); MCH 28.4 PG (27-31); MCHC 33.2 g/dL (33-37); MCV 85.6 FL (81-99); MONO% 10.9 % (1.7-9.3); MPV 9.4 FL (7.4-10.4); NEUT# 17.71 X1000 (1.4-6.5); NEUT% 83.5 % (42.2-75.2); PLT 372 X1000 (130-400); RDW 13.1 % (11.5-14.5); WBC 21.19 X1000 (4.8-10.8)
[2018-10-01 06:19] LABS: AGAP 15; BUN 24 mg/dL (8-22); CHLORIDE 93 mmol/L (98-107); COSMO 277; CREATININE 0.5 mg/dL (0.7-1.2); ESTIMATED GFR > 60; GLUCOSE 256 mg/dL (70-104); POTASSIUM 4.7 mmol/L (3.5-5.1); SODIUM 132 mmol/L (136-145); TCO2 24 mmol/L (25-35)
[2018-10-01] MEDS: MYLICON PO PRN ×2 (07:29→15:49)
--- NOTE | 2018-10-01 07:36 | Diag Imaging Result Doc PS360 ---
CHEST-1 VIEW - 10/01/2018 INDICATION: SOB COMPARISON: 09/30/2018 FINDINGS: There are stable extensive peripheral basilar interstitial opacities bilaterally. No new infiltrates. Heart size remains top normal. No pneumothorax or significant pleural effusion. IMPRESSION: No change from prior. Electronically signed by Phillip Garcia 10/01/2018 7:33 AM
[2018-10-01] MEDS: DUONEB (A & A) INH SCH ×5 (07:56→23:39)
[2018-10-01] MEDS: BUSPAR PO SCH ×3 (08:45→21:22)
[2018-10-01] MEDS: ATARAX PO SCH ×2 (08:45→21:23)
[2018-10-01] MEDS: CELEBREX PO SCH (08:46)
[2018-10-01] MEDS: KLOR-CON PO SCH (08:46)
[2018-10-01] MEDS: NEURONTIN PO SCH ×3 (08:47→21:23)
[2018-10-01] MEDS: LAMICTAL PO SCH (08:47)
[2018-10-01] MEDS: LASIX IV SCH (08:47)
[2018-10-01] MEDS: PRINIVIL PO SCH (08:48)
[2018-10-01] MEDS: PROZAC PO SCH (08:48)
[2018-10-01] MEDS: NEXIUM PO SCH ×2 (09:17→21:23)
--- NOTE | 2018-10-01 09:30 | PROGRESS NOTE ---
DATE: 10/01/2018 SUBJECTIVE: Mr. Baker is breathing better. He does feel better. He is eating well. No abdominal pain and anxious to go home. We can cut down his FiO2. OBJECTIVE: Temperature 98.3 degrees, pulse 95, respirations 19, and blood pressure 122/65. Pupils are equal and round. Lungs are clear in all lung miller. Cardiovascular exam with regular rhythm and rate without murmur or S3. Abdomen is soft. Skin is warm and dry. Urine output was 2400 mL. Chest x-ray with no change from prior x-ray. Stable extensive peripheral basilar interstitial opacities bilaterally. No new infiltrates. He is doing better on his incentive spirometer. ASSESSMENT AND PLAN: 1. Acute hypoxemic hypercapnic respiratory failure. He is on high-flow nasal flow oxygen attempting to decrease his FiO2 which will allow him to go home. He will need a high-flow nasal oxygen for a while. 2. Bilateral interstitial ground-glass infiltrates. Suspect this was respiratory distress syndrome, but possibly could be desquamative interstitial pneumonitis. 3. Chronic obstructive pulmonary disease with exacerbation. 4. Sepsis on admission. 5. History of bipolar disorder. 6. History of depression. 7. Gastroesophageal reflux disease. 8. Chronic pain syndrome. 9. Persistent leukocytosis. We will continue current medications. Still on aztreonam 1 g IV every 8, Lamictal 200 mg a day, levofloxacin 500 mg IV q.24 hours, Prinivil 20 mg a day, methylprednisone 40 mg IV q.6. He is using simethicone chew 80 mg 4 times a day p.r.n. gas and indigestion. Ultram 50 mg q.6 hours. He is on vancomycin 2 g IV q.12. cc: Rj Broderick MD
[2018-10-01] MEDS: LEVAQUIN 500 MG/D5W 500 MG/100 ML IVPB IV SCH (12:35)
[2018-10-01] MEDS: KLONOPIN PO SCH (21:23)
[2018-10-02] MEDS: VANCOMYCIN 2,000 MG in NS 500 ML IV SCH ×2 (01:27→15:41)
[2018-10-02] MEDS: SOLU-MEDROL IV SCH ×4 (01:27→20:47)
[2018-10-02] MEDS: DUONEB (A & A) INH PRN (03:36)
[2018-10-02] MEDS: AZACTAM 1 GM in NS 50 ML IV SCH ×3 (04:06→20:47)
[2018-10-02 05:38] LABS: BASO# 0.01 X1000 (0.0-0.2); HEMATOCRIT 37.5 % (42.0-52.0); HEMOGLOBIN 12.5 g/dL (14.0-18.0); IMM GRAN# 0.17 X1000 (0.0-0.04); IMM GRAN% 0.7 % (0.0-0.5); LYMPH# 0.97 X1000 (1.2-3.4); LYMPH% 3.9 % (20.5-51.1); MCH 28.3 PG (27-31); MCHC 33.3 g/dL (33-37); MONO# 1.88 X1000 (0.11-0.59); MONO% 7.5 % (1.7-9.3); MPV 9.2 FL (7.4-10.4); NEUT# 22.06 X1000 (1.4-6.5); NEUT% 87.9 % (42.2-75.2); PLT 369 X1000 (130-400); RBC 4.41 XMIL (4.7-6.1); RDW 12.9 % (11.5-14.5); WBC 25.09 X1000 (4.8-10.8)
[2018-10-02 05:41] LABS: ALLEN TEST YES; BE 1.5 mmoll (-3.0-3.0); BLOOD TYPE ARTERIAL; HCO3-(ACT) 25.9 mmoll (20.0-26.0); METHB 1.3 % (0.0-1.5); O2(CT) 16.7 mL/dL (15.0-23.0); PCO2(98.6) 39 mmHg (35-45); PO2(98.6) 56 mmHg (60-100); SAMPLE BLOOD; SAO2 91.4 % (95.0-100.0); THB 13.5 g/dL (11.5-17.4); pH(98.6) 7.43 (7.35-7.45)
[2018-10-02 05:50] LABS: MODALITY HIGH FLOW NASAL CAN; O2HB 88.3 % (95.0-99.0)
[2018-10-02 05:53] LABS: AGAP 13; BUN 17 mg/dL (8-22); CALCIUM 7.8 mg/dL (8.8-10.2); CHLORIDE 93 mmol/L (98-107); COSMO 271; CREATININE 0.6 mg/dL (0.7-1.2); ESTIMATED GFR > 60; GLUCOSE 253 mg/dL (70-104); POTASSIUM 4.3 mmol/L (3.5-5.1); SODIUM 130 mmol/L (136-145); TCO2 24 mmol/L (25-35)
--- NOTE | 2018-10-02 07:21 | Diag Imaging Result Doc PS360 ---
CHEST-1 VIEW - 10/02/2018 INDICATION: SOB COMPARISON: 10/01/2018 FINDINGS: Stable fibrosis in the lung bases. Arch size remains top normal. No new infiltrates. No pneumothorax or large pleural effusion. IMPRESSION: Advanced pulmonary fibrosis. Electronically signed by Phillip Garcia 10/02/2018 7:18 AM
[2018-10-02] MEDS: DUONEB (A & A) INH SCH ×5 (07:33→23:58)
[2018-10-02] MEDS: BUSPAR PO SCH ×3 (08:22→20:47)
[2018-10-02] MEDS: ATARAX PO SCH ×2 (08:22→20:46)
[2018-10-02] MEDS: CELEBREX PO SCH (08:23)
[2018-10-02] MEDS: PROZAC PO SCH (08:23)
[2018-10-02] MEDS: NEXIUM PO SCH ×2 (08:23→20:47)
[2018-10-02] MEDS: PRINIVIL PO SCH (08:23)
[2018-10-02] MEDS: NEURONTIN PO SCH ×3 (08:23→20:47)
[2018-10-02] MEDS: LASIX IV SCH (08:24)
[2018-10-02] MEDS: KLOR-CON PO SCH (08:24)
[2018-10-02] MEDS: LACTULOSE PO SCH ×2 (08:24→20:46)
[2018-10-02] MEDS: LAMICTAL PO SCH (08:24)
[2018-10-02] MEDS: LEVAQUIN 500 MG/D5W 500 MG/100 ML IVPB IV SCH (13:17)
[2018-10-02] MEDS: TYLENOL PO PRN ×2 (14:28→20:46)
[2018-10-02] MEDS: ULTRAM PO PRN ×2 (15:41→21:50)
[2018-10-02] MEDS: KLONOPIN PO SCH (20:47)
[2018-10-02] MEDS: MYCOSTATIN SUSP PO SCH (21:50)
[2018-10-03] MEDS: SOLU-MEDROL IV SCH ×4 (03:24→20:28)
[2018-10-03] MEDS: VANCOMYCIN 2,000 MG in NS 500 ML IV SCH ×2 (03:24→15:55)
[2018-10-03 05:36] LABS: ALLEN TEST YES; BE 3.9 mmoll (-3.0-3.0); BLOOD TYPE ARTERIAL; HCO3-(ACT) 27.7 mmoll (20.0-26.0); METHB 0.8 % (0.0-1.5); O2(CT) 16.4 mL/dL (15.0-23.0); PCO2(98.6) 42 mmHg (35-45); PO2(98.6) 53 mmHg (60-100); SAMPLE BLOOD; SAO2 90.2 % (95.0-100.0); THB 13.3 g/dL (11.5-17.4); pH(98.6) 7.44 (7.35-7.45)
[2018-10-03 05:43] LABS: O2HB 87.6 % (95.0-99.0)
[2018-10-03 05:44] LABS: MODALITY HIGH FLOW NASAL CAN
[2018-10-03] MEDS: AZACTAM 1 GM in NS 50 ML IV SCH ×3 (05:51→20:35)
[2018-10-03 05:56] LABS: BASO# 0.02 X1000 (0.0-0.2); BASO% 0.1 % (0.0-0.8); HEMATOCRIT 38.4 % (42.0-52.0); HEMOGLOBIN 13.1 g/dL (14.0-18.0); IMM GRAN# 0.19 X1000 (0.0-0.04); IMM GRAN% 0.8 % (0.0-0.5); LYMPH# 1.54 X1000 (1.2-3.4); LYMPH% 6.2 % (20.5-51.1); MCH 28.7 PG (27-31); MCHC 34.1 g/dL (33-37); MONO# 2.34 X1000 (0.11-0.59); MONO% 9.5 % (1.7-9.3); MPV 9.2 FL (7.4-10.4); NEUT# 20.67 X1000 (1.4-6.5); NEUT% 83.4 % (42.2-75.2); PLT 355 X1000 (130-400); RBC 4.57 XMIL (4.7-6.1); RDW 12.8 % (11.5-14.5); WBC 24.76 X1000 (4.8-10.8)
[2018-10-03 06:04] LABS: AGAP 10; BUN 17 mg/dL (8-22); CALCIUM 8.3 mg/dL (8.8-10.2); CHLORIDE 94 mmol/L (98-107); COSMO 271; CREATININE 0.5 mg/dL (0.7-1.2); ESTIMATED GFR > 60; GLUCOSE 191 mg/dL (70-104); POTASSIUM 4.7 mmol/L (3.5-5.1); SODIUM 132 mmol/L (136-145); TCO2 28 mmol/L (25-35)
[2018-10-03 06:12] LABS: BANDS 1 % (0-1); LYMPHS 3 % (21-51); MONO 8 % (1-9); SEGS 87 % (42-75)
--- NOTE | 2018-10-03 07:33 | Diag Imaging Result Doc PS360 ---
EXAM: CHEST-1 VIEW INDICATION: SOB TECHNIQUE: One view COMPARISON: 10/02/2018 FINDINGS: Pulmonary fibrosis is again noted at the lower lung zones. However, there is now blunting of the right costophrenic angle suggesting development of a small effusion with likely adjacent atelectasis and/or infiltrate. No other new consolidation is identified. Cardiac silhouette is stable. IMPRESSION: Suggestion of a small right pleural effusion with adjacent atelectasis and/or infiltrate superimposed on fibrosis. Electronically signed by Sree Butler 10/03/2018 7:31 AM
[2018-10-03] MEDS: DUONEB (A & A) INH SCH ×5 (07:57→23:30)
--- NOTE | 2018-10-03 08:18 | PROVIDER PROGRESS NOTE ---
Progress Note Pulmonary additional note. Mr. Baker Has likely fibrotic stage of ARDS and still demands High FiO2. He is appropriately on steroids and earlier had CTA ruling PE. At times he had volume overload and will check ProBnp. I think he is on his very slow course of recovery and I hope in the interim he doesn't develop further complications.
[2018-10-03] MEDS: CELEBREX PO SCH (08:43)
[2018-10-03] MEDS: NEURONTIN PO SCH ×3 (08:43→20:27)
[2018-10-03] MEDS: PROZAC PO SCH (08:43)
[2018-10-03] MEDS: MYCOSTATIN SUSP PO SCH ×4 (08:43→20:27)
[2018-10-03] MEDS: LAMICTAL PO SCH (08:43)
[2018-10-03] MEDS: PRINIVIL PO SCH (08:43)
[2018-10-03] MEDS: LASIX IV SCH (08:43)
[2018-10-03] MEDS: ATARAX PO SCH ×2 (08:43→20:28)
[2018-10-03] MEDS: NEXIUM PO SCH ×2 (08:43→20:35)
[2018-10-03] MEDS: BUSPAR PO SCH ×3 (08:43→20:32)
[2018-10-03] MEDS: KLOR-CON PO SCH (08:44)
[2018-10-03] MEDS: LACTULOSE PO SCH ×2 (08:44→20:32)
--- NOTE | 2018-10-03 09:44 | PROGRESS NOTE ---
DATE: 10/03/2018 SUBJECTIVE: Mr. Baker is comfortable, breathing comfortably. He is on high-flow Venturi nasal flow. His bowels are working good. He is eating well. OBJECTIVE: Vital Signs: Temperature 98.9 degrees, pulse 86, respirations 18, blood pressure 110/72. Eyes: Pupils are equal and round. Lungs: Clear in all lung miller anterolateral. Cardiovascular exam: Regular rhythm and rate without murmur or S3. Abdomen: Soft. Skin: Skin is warm and dry. ASSESSMENT AND PLAN: 1. Likely fibrotic stage of acute respiratory distress syndrome. Still demands high FiO2. He is appropriately on steroids, and earlier had a CT angiogram to rule out pulmonary embolus. So, continue to check proBNP. Continue present measures. Hopefully, will be able to wean down his oxygen and get him eligible for home oxygen. His chest x-ray has suggestion of small right pleural effusion, adjacent atelectasis and infiltrate superimposed on suspect fibrosis. 2. Chronic obstructive pulmonary disease. Has a history of bipolar disorder. 3. History of depression. 4. Gastroesophageal reflux. 5. Chronic pain syndrome. He has stopped taking the Suboxone. 6. He does have a persistent leukocytosis. LABS: White count 24,760, hematocrit is 38, hemoglobin 13, platelet count 355,000. Sodium 132, potassium 4.7, chloride 94. BUN 17, creatinine 0.5, and proBNP was 663. cc: Rj Broderick MD
[2018-10-03] MEDS: ULTRAM PO PRN ×2 (10:01→20:28)
[2018-10-03] MEDS: LEVAQUIN 500 MG/D5W 500 MG/100 ML IVPB IV SCH (12:46)
[2018-10-03] MEDS: MYLICON PO PRN (13:35)
[2018-10-03] MEDS: KLONOPIN PO SCH (20:27)
[2018-10-04] MEDS: DUONEB (A & A) INH PRN (02:30)
[2018-10-04] MEDS: VANCOMYCIN 2,000 MG in NS 500 ML IV SCH ×2 (03:16→15:19)
[2018-10-04] MEDS: SOLU-MEDROL IV SCH ×4 (03:16→21:39)
[2018-10-04] MEDS: AZACTAM 1 GM in NS 50 ML IV SCH ×3 (05:43→21:38)
[2018-10-04 05:53] LABS: ALLEN TEST YES; BE 2.4 mmoll (-3.0-3.0); BLOOD TYPE ARTERIAL; HCO3-(ACT) 26.7 mmoll (20.0-26.0); PO2(98.6) 71 mmHg (60-100); SAMPLE BLOOD; pH(98.6) 7.36 (7.35-7.45)
[2018-10-04 05:57] LABS: PCO2(98.6) 51 mmHg (35-45)
[2018-10-04 05:58] LABS: MODALITY HIGH FLOW NASAL CAN
[2018-10-04 06:03] LABS: BASO# 0.01 X1000 (0.0-0.2); HEMATOCRIT 37.3 % (42.0-52.0); HEMOGLOBIN 12.4 g/dL (14.0-18.0); IMM GRAN# 0.21 X1000 (0.0-0.04); IMM GRAN% 0.8 % (0.0-0.5); LYMPH# 1.48 X1000 (1.2-3.4); MCH 28.1 PG (27-31); MCHC 33.2 g/dL (33-37); MCV 84.6 FL (81-99); MONO# 2.66 X1000 (0.11-0.59); MONO% 10.7 % (1.7-9.3); MPV 9.1 FL (7.4-10.4); NEUT# 20.47 X1000 (1.4-6.5); NEUT% 82.5 % (42.2-75.2); PLT 303 X1000 (130-400); RBC 4.41 XMIL (4.7-6.1); RDW 12.8 % (11.5-14.5); WBC 24.83 X1000 (4.8-10.8)
[2018-10-04 06:12] LABS: AGAP 10; BUN 17 mg/dL (8-22); CHLORIDE 96 mmol/L (98-107); COSMO 275; CREATININE 0.4 mg/dL (0.7-1.2); ESTIMATED GFR > 60; GLUCOSE 159 mg/dL (70-104); POTASSIUM 4.5 mmol/L (3.5-5.1); SODIUM 135 mmol/L (136-145); TCO2 29 mmol/L (25-35)
[2018-10-04 06:14] LABS: LYMPHS 6 % (21-51); MONO 2 % (1-9); SEGS 92 % (42-75)
--- NOTE | 2018-10-04 07:04 | PROGRESS NOTE ---
DATE: 10/04/2018 SUBJECTIVE: Mr. Baker is breathing a little better. He said he had a good night. He requested that I stop the BuSpar as it makes him feel a little warm and kind of flushed. I asked him if he was not sure that he did need some for anxiety, but he would like to stop the BuSpar. OBJECTIVE: Temperature 97.9 degrees, pulse 80, respirations 19, blood pressure 125/85. Pupils are equal and round. Lungs are clear in all lung miller. Cardiovascular Examination: Regular rhythm and rate without murmur or S3. Abdomen: Soft, nondistended, and nontender. Urine output is 4800 mL. ASSESSMENT AND PLAN: 1. Likely fibrotic stage of acute respiratory distress syndrome, still requiring high FiO2 level. Had a CT angiogram to rule out pulmonary embolus. Continue to check proBNP. Continue to try to wean down his oxygen. Continue the present measures. 2. Chronic obstructive pulmonary disease. 3. History of bipolar disorder. 4. History of depression. 5. History of gastroesophageal reflux disease. 6. Chronic pain syndrome. He has quit Suboxone. 7. Persistent leukocytosis. He is on steroids. 8. Review of medications. I will stop the BuSpar at his request. cc: Rj Broderick MD
[2018-10-04] MEDS: MYLICON PO PRN (07:29)
[2018-10-04] MEDS: MYCOSTATIN SUSP PO SCH ×4 (08:25→21:39)
[2018-10-04] MEDS: LACTULOSE PO SCH ×3 (08:26→22:24)
[2018-10-04] MEDS: PROZAC PO SCH (08:26)
[2018-10-04] MEDS: CELEBREX PO SCH (08:26)
[2018-10-04] MEDS: ATARAX PO SCH ×2 (08:26→21:39)
[2018-10-04] MEDS: NEXIUM PO SCH ×2 (08:26→21:39)
[2018-10-04] MEDS: LAMICTAL PO SCH (08:27)
[2018-10-04] MEDS: KLOR-CON PO SCH (08:27)
[2018-10-04] MEDS: NEURONTIN PO SCH ×3 (08:27→21:39)
[2018-10-04] MEDS: PRINIVIL PO SCH (08:27)
[2018-10-04] MEDS: LASIX IV SCH (08:27)
[2018-10-04] MEDS: DUONEB (A & A) INH SCH ×5 (08:43→23:50)
[2018-10-04] MEDS: LEVAQUIN 500 MG/D5W 500 MG/100 ML IVPB IV SCH (13:03)
[2018-10-04] MEDS: ULTRAM PO PRN (15:20)
[2018-10-04] MEDS: KLONOPIN PO SCH (21:39)
[2018-10-05] MEDS: SOLU-MEDROL IV SCH ×4 (03:02→20:25)
[2018-10-05] MEDS: VANCOMYCIN 2,000 MG in NS 500 ML IV SCH (03:02)
[2018-10-05] MEDS: DUONEB (A & A) INH PRN (03:48)
[2018-10-05] MEDS: AZACTAM 1 GM in NS 50 ML IV SCH (05:11)
[2018-10-05 05:16] LABS: ALLEN TEST YES; BE 6.1 mmoll (-3.0-3.0); BLOOD TYPE ARTERIAL; HCO3-(ACT) 29.6 mmoll (20.0-26.0); METHB 1.2 % (0.0-1.5); O2(CT) 13.1 mL/dL (15.0-23.0); O2HB 92.7 % (95.0-99.0); PCO2(98.6) 47 mmHg (35-45); PO2(98.6) 63 mmHg (60-100); SAMPLE BLOOD; SAO2 95.7 % (95.0-100.0); pH(98.6) 7.43 (7.35-7.45)
[2018-10-05 05:20] LABS: MODALITY HIGH FLOW NASAL CAN
[2018-10-05 06:01] LABS: BASO# 0.01 X1000 (0.0-0.2); HEMATOCRIT 36.4 % (42.0-52.0); HEMOGLOBIN 12.2 g/dL (14.0-18.0); IMM GRAN# 0.22 X1000 (0.0-0.04); IMM GRAN% 1.1 % (0.0-0.5); LYMPH# 1.21 X1000 (1.2-3.4); LYMPH% 5.9 % (20.5-51.1); MCH 28.4 PG (27-31); MCHC 33.5 g/dL (33-37); MCV 84.8 FL (81-99); MONO# 1.63 X1000 (0.11-0.59); MONO% 7.9 % (1.7-9.3); MPV 9.2 FL (7.4-10.4); NEUT# 17.61 X1000 (1.4-6.5); NEUT% 85.1 % (42.2-75.2); PLT 266 X1000 (130-400); RBC 4.29 XMIL (4.7-6.1); RDW 12.7 % (11.5-14.5); WBC 20.68 X1000 (4.8-10.8)
[2018-10-05 06:23] LABS: AGAP 12; BUN 18 mg/dL (8-22); CALCIUM 8.1 mg/dL (8.8-10.2); CHLORIDE 95 mmol/L (98-107); COSMO 275; CREATININE 0.4 mg/dL (0.7-1.2); ESTIMATED GFR > 60; GLUCOSE 194 mg/dL (70-104); POTASSIUM 4.6 mmol/L (3.5-5.1); SODIUM 134 mmol/L (136-145); TCO2 27 mmol/L (25-35)
[2018-10-05] MEDS: DUONEB (A & A) INH SCH ×5 (08:31→23:30)
--- NOTE | 2018-10-05 08:37 | PROGRESS NOTE ---
DATE: 10/05/2018 SUBJECTIVE: Mr. Baker is feeling good, feeling better. He had to go back up on his O2, and then were able to cut back on his FiO2 a little bit. Still on high-flow nasal cannula. He is eating well. Bowels are moving. No abdominal bloating. OBJECTIVE: Vital Signs: Temp 97.7 degrees, pulse 88, respirations 20, blood pressure 123/70. Urine output was 7 L. HEENT: Pupils are equal and round. Lungs: Clear anterior and posterior. He is on high nasal flow O2. Pupils are equal. Neck: No distended neck veins. Extremities: No pedal edema. ASSESSMENT AND PLAN: 1. He is likely in the fibrotic stage of acute respiratory distress syndrome, and still demands high FiO2, still on steroids. He had a CT, and I think the plan is to do a CT angiogram to make sure there is no pulmonary emboli, and waiting to get his FiO2 down and see if he is eligible for home high-flow nasal cannula FiO2. 2. Chronic obstructive pulmonary disease. 3. History of bipolar disorder. 4. History of depression. 5. History of gastroesophageal reflux disease. 6. Chronic pain syndrome. He has stopped taking Suboxone. Note that he has asked to be taken off the BuSpar as well. 7. Persistent leukocytosis. He is on steroids. 8. Review of his current orders. He is on Klonopin 1 mg at bedtime, he is on aztreonam 1 gram every 8 hours, and he is on levofloxacin 500 mg daily and vancomycin 2000 mg every 12 hours. His cultures are negative. I think we can look at stopping his antibiotics, and pursue home placement or discharge plans. cc: Rj Broderick MD
[2018-10-05] MEDS: LACTULOSE PO SCH ×2 (08:43→20:26)
[2018-10-05] MEDS: PROZAC PO SCH (08:44)
[2018-10-05] MEDS: ATARAX PO SCH ×2 (08:44→20:25)
[2018-10-05] MEDS: CELEBREX PO SCH (08:45)
[2018-10-05] MEDS: KLOR-CON PO SCH (08:45)
[2018-10-05] MEDS: PRINIVIL PO SCH (08:46)
[2018-10-05] MEDS: NEXIUM PO SCH ×2 (08:46→20:27)
[2018-10-05] MEDS: LASIX IV SCH (08:46)
[2018-10-05] MEDS: LAMICTAL PO SCH (08:46)
[2018-10-05] MEDS: NEURONTIN PO SCH ×3 (08:47→20:27)
[2018-10-05] MEDS: MYCOSTATIN SUSP PO SCH ×4 (08:47→20:27)
[2018-10-05] MEDS: ULTRAM PO PRN (10:12)
[2018-10-05] MEDS: KLONOPIN PO SCH (20:26)
[2018-10-06] MEDS: SOLU-MEDROL IV SCH ×4 (01:38→20:04)
[2018-10-06 05:06] LABS: ALLEN TEST YES; BE 7.2 mmoll (-3.0-3.0); BLOOD TYPE ARTERIAL; HCO3-(ACT) 30.2 mmoll (20.0-26.0); METHB 0.9 % (0.0-1.5); O2(CT) 15.8 mL/dL (15.0-23.0); PCO2(98.6) 48 mmHg (35-45); PO2(98.6) 50 mmHg (60-100); SAMPLE BLOOD; SAO2 87.3 % (95.0-100.0); THB 13.3 g/dL (11.5-17.4); pH(98.6) 7.44 (7.35-7.45)
[2018-10-06 05:09] LABS: MODALITY HIGH FLOW NASAL CAN; O2HB 84.5 % (95.0-99.0)
[2018-10-06 05:51] LABS: BASO# 0.01 X1000 (0.0-0.2); HEMOGLOBIN 12.8 g/dL (14.0-18.0); IMM GRAN# 0.35 X1000 (0.0-0.04); IMM GRAN% 1.5 % (0.0-0.5); LYMPH# 1.34 X1000 (1.2-3.4); LYMPH% 5.8 % (20.5-51.1); MCH 28.6 PG (27-31); MCHC 33.7 g/dL (33-37); MONO# 1.52 X1000 (0.11-0.59); MONO% 6.6 % (1.7-9.3); MPV 9.4 FL (7.4-10.4); NEUT% 86.1 % (42.2-75.2); PLT 253 X1000 (130-400); RBC 4.47 XMIL (4.7-6.1); RDW 12.9 % (11.5-14.5); WBC 23.02 X1000 (4.8-10.8)
[2018-10-06 06:19] LABS: ESTIMATED GFR > 60
[2018-10-06 06:27] LABS: AGAP 12; BUN 22 mg/dL (8-22); CALCIUM 8.3 mg/dL (8.8-10.2); CHLORIDE 89 mmol/L (98-107); COSMO 276; CREATININE 0.5 mg/dL (0.7-1.2); GLUCOSE 283 mg/dL (70-104); POTASSIUM 4.5 mmol/L (3.5-5.1); SODIUM 131 mmol/L (136-145); TCO2 30 mmol/L (25-35)
[2018-10-06] MEDS ORDERED: PRILOSEC PO SCH (07:00)
[2018-10-06 07:25] LABS: URINE SOURCE CLEAN CATCH
[2018-10-06 07:43] LABS: BILIRUBIN URINE NEGATIVE (NEGATIVE); BLOOD URINE SMALL (NEGATIVE); COLOR YELLOW; GLUCOSE URINE NEGATIVE (NEGATIVE); KETONE URINE NEGATIVE (NEGATIVE); LEUKOCYTES URINE LARGE (NEGATIVE); NITRITE URINE NEGATIVE (NEGATIVE); PROTEIN URINE NEGATIVE (NEGATIVE); SP GRAVITY URINE 1.005; TURBIDITY URINE HAZY (CLEAR); UR EPITHELIAL CELLS <10 /HPF (<10); URINE BACTERIA NEGATIVE /HPF; URINE RBC 20-40 /HPF (<10); URINE WBC TNTC /HPF (<10); UROBILINOGEN URINE NORMAL (NORMAL)
[2018-10-06] MEDS: PROZAC PO SCH (08:18)
[2018-10-06] MEDS: PRINIVIL PO SCH (08:18)
[2018-10-06] MEDS: NEURONTIN PO SCH ×3 (08:18→20:06)
[2018-10-06] MEDS: NEXIUM PO SCH ×2 (08:19→20:06)
[2018-10-06] MEDS: CELEBREX PO SCH (08:19)
[2018-10-06] MEDS: MYCOSTATIN SUSP PO SCH ×4 (08:19→20:06)
[2018-10-06] MEDS: LAMICTAL PO SCH (08:19)
[2018-10-06] MEDS: LASIX IV SCH (08:19)
[2018-10-06] MEDS: LACTULOSE PO SCH ×2 (08:19→20:02)
[2018-10-06] MEDS: ATARAX PO SCH ×2 (08:20→20:05)
--- NOTE | 2018-10-06 09:23 | INFECTIOUS DISEASE CONSULT REP ---
DATE: 10/06/2018 CONCLUSION: I have been asked to see the patient for possible pneumonia. The patient has pulmonary fibrosis and on the most recent chest x-ray, there is a small right pleural effusion with atelectasis and/or pneumonia. I agree with checking the patient's immunoglobulin levels in view of the fact that he has had recurrent sinus infections but previously not a pneumonia. The patient does have leukocytosis which would be in keeping with pneumonia. However, he is on steroids and that may be the cause of his leukocytosis. RECOMMENDATIONS: It is difficult for me to say whether the patient has pneumonia or not. He is going down today for a CT scan of the thorax and also procalcitonin has been ordered, so between these 2 studies, I think we can make a diagnosis of whether the patient has pneumonia or not. DISCUSSION: The patient tells me that on September 14 he had sudden onset of dyspnea and he is not coughing much. He has not had fever or chills. His CBC shows a white count of 23,020, hemoglobin 12.8, platelet count is 253,000. The patient's CBC shows a white count of 23,020, hemoglobin 12.8 and platelet count of 253,000. Blood gases show a pH of 7.44, PO2 of 50, and a pCO2 of 48, creatinine is 0.5, GFR is greater than 60. Urinalysis shows white cells, but no bacteria. Blood, urine, and Clostridium difficile toxin studies are all negative. Chest x-ray, as mentioned above, shows pulmonary fibrosis with a small right pleural effusion and an area of atelectasis/pneumonia. PAST MEDICAL HISTORY/REVIEW OF SYSTEMS: Eyes and ears: He does not have any problem seeing or hearing. Neck: No stiffness. Respiratory: See present illness. Cardiac: No chest pain or palpitations. GI: No nausea, vomiting, or diarrhea. : No dysuria or flank pain. Bones, joints, muscles: No swollen joints or muscle aches. Endocrine: The patient does not have diabetes or thyroid disease. Neurologic: The patient does have bipolar disease, depression, anxiety and post traumatic stress disorder. PREVIOUS HOSPITALIZATIONS AND OPERATIONS: He has had right shoulder rotator cuff surgery. MEDICAL DISEASES: Positive for hypertension, gastroesophageal reflux disease, chronic obstructive pulmonary disease, cigarette smoking, bipolar disorder, depression and post traumatic stress disorder also. The patient also said he has anxiety. The patient during this hospitalization has been diagnosed as having oral candidiasis. INFECTIOUS DISEASE HISTORY: Positive for UTI and sinusitis. FAMILY HISTORY: Positive for cancer and dementia. SOCIAL HISTORY: The patient lives in [place]. He is . He lives with his son. He has a dog and cats for pets. He smokes cigarettes. ALLERGIES: He is allergic to penicillin manifested by swelling, but he tolerates Keflex okay. MEDICATIONS TAKEN AT HOME: Suboxone, BuSpar, Celebrex, clonazepam, fluoxetine, gabapentin, Atarax, lamotrigine, lisinopril and olanzapine. HEIGHT/WEIGHT: The patient is 5 feet 8 inches tall, weighs 134 pounds. PHYSICAL EXAMINATION: Vital Signs: Temperature is 98.3 degrees, pulse 103, respirations 18, blood pressure 99/67. General: This is an ill-appearing, somewhat malnourished-appearing, middle-aged male. He is in no acute distress. Head, eyes, ears, nose and throat: He can hear my spoken words and see near objects. He does have some white discoloration to his tongue, because previously he has been diagnosed as having oral candidiasis. Neck: No stiffness and no pain with movement of the neck. Lungs: Clear to auscultation. Cardiovascular: Heart rate is regular. Abdomen: Soft and nontender. Neurologic: The patient is awake. He can move his extremities. There is no tremor. His sensation is intact to touch. His memory as regarding his medical history seemed to be intact. Integument: No rash noted. Thank you for the consult. cc: Giovany Garcia MD [facility]
--- NOTE | 2018-10-06 09:56 | Diag Imaging Result Doc PS360 ---
EXAM: CT THORAX W/CONTRAST INDICATION: pneumonia TECHNIQUE: This exam was performed using automated exposure control, adjustment of mA or kV according to patient size, and/or use of iterative reconstruction technique. COMPARISON: 09/14/2018 FINDINGS: Overall, the diffuse patchy infiltrates seen on the previous study have improved. However, there is still significant infiltrate at the mid and lower lung zones with a basilar predominance there is severe pulmonary emphysema. It actually appears more extensive than the previous study, especially at the lung bases. However, this is probably because the dilated airspaces were filled with fluid on the previous study. There is a stable pleural-based right upper lobe lung nodule with faint increased density centrally. This probably represents a granuloma with mild central calcification. There is no pleural fluid collection and no pneumothorax. Although the contrast bolus is not optimized for the pulmonary arteries, there does appear to be a tiny filling defect in a distal branch of the right pulmonary artery in the right lower lobe on image 69 of series 2 that may represent a small pulmonary embolism. No other pulmonary artery filling defect can be identified as imaged. The heart is prominent but stable. The mediastinal and hilar lymphadenopathy seen previously has improved. Limited views of the upper abdomen are grossly unremarkable. IMPRESSION: 1.Fairly advanced pulmonary emphysema. Please see the above discussion. 2.Overall improvement of the bilateral infiltrates during the interval. However, there is still significant infiltrate in the mid and lower lung zones. 3.Likely tiny pulmonary embolism in a distal branch of the right pulmonary artery. Please see above discussion. 4.Improvement of mediastinal and hilar lymphadenopathy. Electronically signed by Sree Butler 10/06/2018 9:53 AM
[2018-10-06] MEDS: DUONEB (A & A) INH SCH ×5 (11:06→23:20)
[2018-10-06] MEDS: LOVENOX SUBQ SCH ×2 (12:01→22:42)
[2018-10-06] MEDS: ULTRAM PO PRN (16:43)
[2018-10-06] MEDS: KLONOPIN PO SCH (20:05)
--- NOTE | 2018-10-06 22:12 | PROGRESS NOTE ---
DATE: 10/06/2018 SUBJECTIVE: The patient is sitting up in a chair on high-flow oxygen. He states that he feels a little bit better. OBJECTIVE: Vital signs: Temperature 97.9 degrees, blood pressure 111/68, heart rate 112, respirations 15, O2 saturation 88% on high-flow oxygen. General: This is an elderly male sitting up in a chair, in no acute distress. Heart: S1, S2 normal. Tachycardic. Lungs: Diminished breath sounds bilaterally. No wheezing. No rales. Abdomen: Positive bowel sounds. Soft, nontender, nondistended. Extremities: No edema. No cyanosis. Neurologic: The patient is alert and oriented x4. LABORATORY DATA: White blood cell count 23, hemoglobin 12, hematocrit 38, platelets 253,000. Sodium 131, potassium 4.5, chloride 89, CO2 is 30, BUN 22, creatinine 0.5, glucose 283. DIAGNOSTIC DATA: CT of the chest with contrast shows advanced emphysema; tiny pulmonary embolism in the right pulmonary artery; infiltrates in the mid and lower lung miller. ASSESSMENT AND PLAN: 1. Acute on chronic hypoxemic and hypercapnic respiratory failure. The patient has received several days of treatment for pneumonia. His CT done today does show evidence of a tiny pulmonary embolism and an infiltrative process. Continue high-flow oxygen. The patient has been started on full-dose Lovenox. 2. Possible pneumonia. Procalcitonin level is currently pending. Dr. Garcia is following. 3. Acute pulmonary embolism. The patient is on full-dose Lovenox. 4. Advanced emphysema. Aware. Continue supportive care. 5. Chronic obstructive pulmonary disease exacerbation. Continue with intravenous steroids, bronchodilator therapy and supplemental oxygen. 6. Hyponatremia. Stable. 7. Gastrointestinal prophylaxis. Continue on Protonix. 8. Disposition. The patient states that he wants to remain a Full Code. cc: Deepika Sims MD [facility]
[2018-10-07] MEDS: SOLU-MEDROL IV SCH ×4 (01:04→20:50)
[2018-10-07 05:32] LABS: ALLEN TEST YES; BE 6.1 mmoll (-3.0-3.0); BLOOD TYPE ARTERIAL; HCO3-(ACT) 29.6 mmoll (20.0-26.0); METHB 0.9 % (0.0-1.5); O2(CT) 19.1 mL/dL (15.0-23.0); O2HB 95.9 % (95.0-99.0); PCO2(98.6) 49 mmHg (35-45); PO2(98.6) 90 mmHg (60-100); SAMPLE BLOOD; THB 14.1 g/dL (11.5-17.4); pH(98.6) 7.42 (7.35-7.45)
[2018-10-07 05:33] LABS: MODALITY HIGH FLOW NASAL CAN
[2018-10-07 05:36] LABS: ESTIMATED GFR > 60
[2018-10-07 05:39] LABS: AGAP 10; BUN 29 mg/dL (8-22); CALCIUM 8.3 mg/dL (8.8-10.2); CHLORIDE 88 mmol/L (98-107); COSMO 270; CREATININE 0.5 mg/dL (0.7-1.2); GLUCOSE 198 mg/dL (70-104); POTASSIUM 4.8 mmol/L (3.5-5.1); SODIUM 129 mmol/L (136-145); TCO2 31 mmol/L (25-35)
[2018-10-07 06:20] LABS: BASO# 0.02 X1000 (0.0-0.2); BASO% 0.1 % (0.0-0.8); HEMOGLOBIN 12.5 g/dL (14.0-18.0); IMM GRAN# 0.49 X1000 (0.0-0.04); IMM GRAN% 1.9 % (0.0-0.5); LYMPH# 1.58 X1000 (1.2-3.4); LYMPH% 6.3 % (20.5-51.1); MCH 28.5 PG (27-31); MCHC 33.8 g/dL (33-37); MCV 84.3 FL (81-99); MONO# 1.84 X1000 (0.11-0.59); MONO% 7.3 % (1.7-9.3); MPV 9.1 FL (7.4-10.4); NEUT# 21.33 X1000 (1.4-6.5); NEUT% 84.4 % (42.2-75.2); PLT 243 X1000 (130-400); RBC 4.39 XMIL (4.7-6.1); RDW 12.9 % (11.5-14.5); WBC 25.26 X1000 (4.8-10.8)
--- NOTE | 2018-10-07 06:57 | Diag Imaging Result Doc PS360 ---
CHEST-PORTABLE - 10/07/2018 INDICATION: dyspnea COMPARISON: 10/03/2018 FINDINGS: Stable extensive bibasilar infiltrates. Stable severely low lung volumes. Heart size remains normal. No pneumothorax or significant pleural effusion. IMPRESSION: No change from prior. Electronically signed by Phillip Garcia 10/07/2018 6:54 AM
[2018-10-07 07:15] LABS: BANDS 6 % (0-1); LYMPHS 12 % (21-51); SEGS 82 % (42-75)
--- NOTE | 2018-10-07 07:34 | INFECTIOUS DISEASE PROGRESS NO ---
DATE: 10/07/2018 CONCLUSION: The patient has bibasilar infiltrates which have improved. I think there is a component of pneumonia and there may be also a component of pulmonary venous congestion. 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 PRESENT ILLNESS: The patient also has oral candidiasis, most likely secondary to the fact that he has had antibiotics and steroids. The patient also has a leukocytosis and I think most of this is due to the fact that the patient is on high doses of steroids. MEDICATIONS: Currently, the patient is on no antibiotics. PHYSICAL EXAMINATION: Vital Signs: Temperature is 98.4 degrees, pulse 86, respirations 18, blood pressure 115/66. General: This is an ill-appearing, somewhat malnourished- appearing, middle-aged male. He is in no acute distress. Head, Eyes, Ears, Nose, and Throat: He can hear my spoken words and see near objects. He still had some white patches on his tongue from his oral candidiasis. Neck: The patient does not have any pain when he moves his neck. Lungs: Bibasilar inspiratory rales. Cardiovascular: Heart rate is regular. Abdomen: Soft and nontender. Neurologic: The patient is awake. He can move his extremities. There is no tremor. Integument: No rash noted. Thorax: The patient has an increased AP diameter of the chest. LAB AND X-RAY: A chest x-ray for today has not been read but from my review of it, I think he has bibasilar infiltrates. The patient's CT scan yesterday showed improvement in the patient's bibasilar infiltrates. As mentioned above, the patient's IgG level was low at 512. Creatinine is 0.5. GFR is greater than 60. The patient's CBC shows a white count of 25,260, hemoglobin 12.5, and platelet count 243,000. Blood gases show a pH of 7.42, a PO2 of 90, and a pCO2 of 49. ASSESSMENT AND PLAN: I think the patient can be discharged today if it is okay with Dr. Sims. I am going to send him out on the combination of Levaquin and doxycycline. Also, before the patient goes, I am going to give him an infusion of gammaglobulin. I will plan to have the patient come back to my office in 2 weeks at which time he will be examined and also an x-ray will be made to see if his infiltrates are improving. Approximately 6 weeks from today, the patient's immunoglobulin levels will be repeated. If the IgG is as low as it is now or lower, then I think the patient will have true immunoglobulin deficiency that deserves treatment with monthly intravenous gammaglobulin. I have discussed with the patient how important it would be for him to discontinue cigarette smoking and he is quite aware of this. Patient will need to stop Atarax while he is on Levaquin. For the patient's oral candidiasis Mycelex troches will be used at home because mycostatin swish and swallow is in short supply. COMORBIDITIES: Include that he does have an immunoglobulin deficiency. He also has COPD. Also, another big comorbidity is the fact that the patient smokes cigarettes which undoubtedly caused him to have the severe COPD. cc: Giovany Garcia MD MTDD
[2018-10-07] MEDS: DUONEB (A & A) INH SCH ×5 (07:43→23:10)
--- NOTE | 2018-10-07 07:51 | INFECTIOUS DISEASE PROGRESS NO ---
DATE: 10/07/2018 ADDENDUM: I have also sent a prescription to the patient's pharmacy electronically for clotrimazole troches to treat the patient's oral candidiasis. Also, as regarding the patient's immunoglobulin deficiency, I will have the patient's immunoglobulin levels repeated in approximately 6 weeks and if the IgG is still low, then I think the patient would be a candidate for monthly IVIG. cc: Giovany Garcia MD
[2018-10-07] MEDS ORDERED: GAMUNEX-C 10% IV ONE (08:00)
[2018-10-07 08:01] LABS: HEMOGLOBIN A1C 6.7 % (4.8-6.0)
[2018-10-07] MEDS ORDERED: SAMSCA PO ONE (09:00)
[2018-10-07] MEDS: LASIX IV SCH (09:05)
[2018-10-07] MEDS: MYCOSTATIN SUSP PO SCH ×4 (09:05→20:50)
[2018-10-07] MEDS: LEVAQUIN PO SCH (09:05)
[2018-10-07] MEDS: DOXYCYCLINE PO SCH ×2 (09:05→20:50)
[2018-10-07] MEDS: NEURONTIN PO SCH ×3 (09:05→20:51)
[2018-10-07] MEDS: LACTULOSE PO SCH ×2 (09:06→20:20)
[2018-10-07] MEDS: NEXIUM PO SCH ×2 (09:06→20:51)
[2018-10-07] MEDS: PRINIVIL PO SCH (09:06)
[2018-10-07] MEDS: PROZAC PO SCH (09:06)
[2018-10-07] MEDS: LAMICTAL PO SCH (09:06)
[2018-10-07] MEDS: CELEBREX PO SCH (09:06)
[2018-10-07] MEDS ORDERED: INSULIN PEN NEEDLES ONE (11:00)
[2018-10-07] MEDS: HUMULIN R SUBQ SCH ×3 (11:01→20:50)
[2018-10-07] MEDS: LEVEMIR SUBQ SCH (11:02)
[2018-10-07] MEDS: LOVENOX SUBQ SCH ×2 (11:08→22:23)
[2018-10-07] MEDS ORDERED: KLONOPIN PO ONE (19:11)
--- NOTE | 2018-10-07 20:33 | PROGRESS NOTE ---
DATE: 10/07/2018 SUBJECTIVE: The patient is resting comfortably. No acute events noted overnight. OBJECTIVE: Vital signs: Temperature 97.9 degrees, blood pressure 100/62, heart rate 113, respirations 20, O2 saturation 95% on high-flow oxygen. General: This is a chronically ill- appearing elderly male lying in bed in no acute distress. Heart: S1, S2 normal. Tachycardic. Lungs: Diminished breath sounds bilaterally. Abdomen: Positive bowel sounds. Soft, nontender, nondistended. Extremities: No edema. No cyanosis. Neurologic: The patient is alert and oriented x4. LABORATORY DATA: White blood cell count 25, hemoglobin 12, hematocrit 37, platelets 243,000, sodium 129, potassium 4.8, chloride 88, CO2 31, BUN 29, creatinine 0.5 glucose 198. ASSESSMENT: 1. Acute on chronic hypoxemic and hypercapnic respiratory failure. 2. Acute respiratory distress syndrome. 3. Pneumonia. 4. Acute pulmonary embolism. 5. Advanced emphysema. 6. Hyponatremia. 7. Chronic obstructive pulmonary disease. 8. Diabetes mellitus type 2 PLAN: The patient and his family met with palliative care, and the patient has decided that he wants to be discharged home with hospice. Pall[facility] care and [facility] are making arrangements for the patient to continue with high-flow oxygen upon discharge. We will continue on the current medications pending discharge tomorrow. cc: Deepika Sims MD MTDD
[2018-10-07] MEDS: ULTRAM PO PRN (22:51)
[2018-10-08] MEDS: SOLU-MEDROL IV SCH (02:22)
[2018-10-08] MEDS: DUONEB (A & A) INH SCH ×3 (04:20→10:54)
[2018-10-08] MEDS: DUONEB (A & A) INH PRN (04:21)
[2018-10-08 04:55] LABS: ALLEN TEST YES; BE 5.9 mmoll (-3.0-3.0); BLOOD TYPE ARTERIAL; HCO3-(ACT) 29.4 mmoll (20.0-26.0); METHB 0.8 % (0.0-1.5); O2(CT) 14.5 mL/dL (15.0-23.0); O2HB 90.3 % (95.0-99.0); PCO2(98.6) 44 mmHg (35-45); PO2(98.6) 57 mmHg (60-100); SAMPLE BLOOD; SAO2 93.1 % (95.0-100.0); THB 11.4 g/dL (11.5-17.4); pH(98.6) 7.45 (7.35-7.45)
[2018-10-08 04:57] LABS: MODALITY HIGH FLOW NASAL CAN
[2018-10-08] MEDS: TYLENOL PO PRN (05:20)
[2018-10-08] MEDS: ULTRAM PO PRN (05:20)
[2018-10-08 06:05] LABS: BASO# 0.02 X1000 (0.0-0.2); BASO% 0.1 % (0.0-0.8); HEMOGLOBIN 11.8 g/dL (14.0-18.0); IMM GRAN# 0.45 X1000 (0.0-0.04); IMM GRAN% 1.8 % (0.0-0.5); LYMPH% 6.1 % (20.5-51.1); MCH 28.6 PG (27-31); MCHC 33.7 g/dL (33-37); MONO# 1.68 X1000 (0.11-0.59); MONO% 6.9 % (1.7-9.3); MPV 9.3 FL (7.4-10.4); NEUT# 20.79 X1000 (1.4-6.5); NEUT% 85.1 % (42.2-75.2); PLT 212 X1000 (130-400); RBC 4.12 XMIL (4.7-6.1); WBC 24.44 X1000 (4.8-10.8)
[2018-10-08 06:21] LABS: ESTIMATED GFR > 60
[2018-10-08] MEDS: HUMULIN R SUBQ SCH ×2 (06:24→11:10)
[2018-10-08 06:31] LABS: AGAP 7; BUN 37 mg/dL (8-22); CALCIUM 8.5 mg/dL (8.8-10.2); CHLORIDE 89 mmol/L (98-107); COSMO 267; CREATININE 0.5 mg/dL (0.7-1.2); GLUCOSE 184 mg/dL (70-104); POTASSIUM 4.9 mmol/L (3.5-5.1); SODIUM 126 mmol/L (136-145); TCO2 30 mmol/L (25-35)
--- NOTE | 2018-10-08 07:09 | Diag Imaging Result Doc PS360 ---
EXAM: CHEST-PORTABLE 10/08/2018 HISTORY: dyspnea TECHNIQUE: AP portable at 0538 COMMENT: The inspiration is suboptimal. There is some platelike atelectasis particularly in the right base. There is interstitial pulmonary edema which was also present on 10/07/2018. There may be slight improvement in the right lower lobe. IMPRESSION: Poor inspiration with pulmonary edema and minimal atelectasis. Electronically signed by Shay Sinha 10/08/2018 7:06 AM
[2018-10-08 08:11] VITALS: BP 108/76
[2018-10-08] MEDS: NEXIUM PO SCH (08:59)
[2018-10-08] MEDS: MYCOSTATIN SUSP PO SCH (08:59)
[2018-10-08] MEDS: PRINIVIL PO SCH (08:59)
[2018-10-08] MEDS: LEVAQUIN PO SCH (08:59)
[2018-10-08] MEDS: DOXYCYCLINE PO SCH (08:59)
[2018-10-08] MEDS: PROZAC PO SCH (09:00)
[2018-10-08] MEDS: LASIX IV SCH (09:00)
[2018-10-08] MEDS: LACTULOSE PO SCH (09:00)
[2018-10-08] MEDS: LAMICTAL PO SCH (09:00)
[2018-10-08] MEDS: LEVEMIR SUBQ SCH (09:00)
[2018-10-08] MEDS: NEURONTIN PO SCH (09:00)
--- NOTE | 2018-10-08 11:22 | INFECTIOUS DISEASE PROGRESS NO ---
DATE: 10/08/2018 PRESENT ILLNESS: The patient has a bibasilar pneumonia. He also has oral candidiasis, and he also has an immunoglobulin deficiency specifically due to an IgG level of 512. The patient also has leukocytosis, but I think this is most likely due to the steroids the patient is receiving. MEDICATIONS: Yesterday, I switched the patient to oral antibiotics, namely doxycycline and Levaquin. Yesterday, he also received an infusion of IV immunoglobulin. Since the Mycostatin swish and swallow is in short supply, I am sending the patient home with a prescription for Mycelex troches. The patient's prescriptions for his medicines, namely doxycycline, Levaquin, and Mycelex troches have been sent electronically to the patient's pharmacy. PHYSICAL EXAMINATION: Vital Signs: Temperature is 98 degrees, pulse 98, respirations 21, blood pressure 111/81. General: This is an ill-appearing, middle-aged male. He is in no acute distress. HEENT: The patient could hear my spoken words and see near objects. There is no drainage coming from his nose or ears. There is no are no white patches on his tongue. Neck: The patient does not have any pain when he moves his neck. Thorax: The patient has a dorsal kyphosis. Lungs: The patient had bibasilar rales. Cardiovascular: Heart rate is regular. Abdomen: Soft and nontender. Neurologic: The patient is awake. He is able to ambulate. There is no tremor. LAB AND RADIOLOGY: CBC-WBC 24.44, hgb 11.8, platelets 212K. Creatinine-0.5. GFR->60. Procalcitonin-<0.101. Chest x-ray shows pulmonary shows pulmonary edema. ASSESSMENT AND PLAN: The patient should be going home today on a combination of doxycycline and Levaquin by mouth. Also, Mycelex has been ordered for the patient's oral candidiasis. As regarding the patient's immunoglobulin deficiency, he had an infusion of IVIG yesterday, which should bring his IgG level into a normal range. I sent the patient's prescription through the computer, directly to the patient's pharmacy. The prescription was sent electronically. The patient has a 2-week prescription for his medications that I electronically sent, and I have requested that he come to my office in 2 weeks for examination, and also to repeat the chest x- ray. COMORBIDITIES: He has severe COPD due to cigarette smoking, and he also has an immunoglobulin deficiency. cc: Giovany Garcia MD MTDD
[2018-10-08] MEDS: LOVENOX SUBQ SCH (12:15)
[2018-10-08] MEDS ORDERED: SOLU-MEDROL IV SCH (14:00)
--- NOTE | 2018-10-09 10:13 | DISCHARGE SUMMARY ---
ADMISSION DATE: 09/14/2018 DISCHARGE DATE: 10/08/2018 PRIMARY CARE PHYSICIAN: Dr. Singh. FINAL DISCHARGE DIAGNOSES: 1. Acute hypoxemic and hypercapnic respiratory failure. 2. Acute respiratory distress syndrome. 3. Acute pulmonary embolism. 4. Bilateral lobe pneumonia. 5. Advanced emphysema. 6. Chronic obstructive pulmonary disease. 7. Hyponatremia. 8. Diabetes mellitus type 2 newly diagnosed. 9. Leukocytosis. CONSULTATIONS: 1. Pulmonary consultation with Dr. Vo. 2. Infectious Disease consultation with Dr. Garcia. IMAGIN. Pulmonary arteriogram performed on 09/14/2018 which revealed pulmonary edema plus or minus pneumonia, mediastinal and hilar adenopathy. 2. Chest CT with contrast performed on 10/06/2018, which revealed advanced pulmonary emphysema. Tiny pulmonary embolism in the distal branch of the right pulmonary artery. Mediastinal and hilar lymphadenopathy. HOSPITAL COURSE: Mr. Baker is a 53-year-old male with a history of emphysema, tobacco dependence, anxiety disorder, and depression who presented to the ER with a sudden onset of shortness of breath. While in the ER, a pulmonary arteriogram was done that revealed pulmonary edema as well as pneumonia, mediastinal and hilar lymphadenopathy. The patient was initially on a partial rebreather mask and was escalated up to BiPAP due to his increased work of breathing. Blood cultures were obtained, and the patient was started on broad-spectrum antibiotics. Infectious Disease and Pulmonary were consulted for assistance with management. The patient continued to have high oxygen requirements despite being treated with antibiotics, IV steroids, diuretics and bronchodilator therapy. The patient was eventually escalated up to high-flow oxygen via nasal cannula. The patient had a prolonged hospitalization due to slow improvement in his respiratory status. A repeat CT of the chest was done on 10/06/2018, and it revealed improvement of the bilateral infiltrates, but the patient was then noted to have a tiny pulmonary embolism in the distal branch of the right pulmonary artery. In light of this finding, the patient was started on full-dose Lovenox. Over the course of the hospitalization, the patient continued to have marginal improvement in his respiratory status so Palliative Care was consulted to assist with goals of care. The patient met with palliative care and his family members, and he decided that he wanted to be discharged home with Hospice rather than remain in the hospital any longer. [facility] was consulted, and they made arrangements for the patient to continue with high-flow oxygen at home. The patient will continue on the current treatment for his respiratory condition at home. The patient states that he wants to remain a full code. The patient will be discharged home today with Hospice Services. DISCHARGE MEDICATIONS: 1. Levaquin 750 mg oral daily. 2. Mycelex 10 mg oral every 8 hours. 3. Doxycycline 100 mg oral every 12 hours. 4. Glipizide 2.5 mg oral daily. 5. Klonopin 0.5 mg oral every 8 hours p.r.n. for anxiety. 6. Xarelto 15 mg oral twice a day x21 days. 7. Xarelto 20 mg oral daily to be started on 10/29/2018. 8. Metformin 500 mg oral twice a day with meals. 9. DuoNeb's 3 mL inhaled every 6 hours p.r.n. 10. Lisinopril 20 mg p.o. daily. 11. Fluoxetine 60 mg p.o. daily. 12. Lamotrigine 200 mg oral daily. 13. Gabapentin 800 mg oral 4 times a day. 14. Atarax 50 mg oral twice a day. 15. Olanzapine 15 mg oral at bedtime p.r.n. 16. BuSpar 10 mg oral 3 times a day. DISCHARGE DIET: Regular diet. ACTIVITY: As tolerated. FOLLOWUP INSTRUCTIONS: The patient will need to follow up with Dr. Giovany Garcia as scheduled. cc: Deepika Sims MD MTDKathleen
== END 2018-10-08 12:20 | disposition hospice, home (50) | DRG 871 ==
LOC: ED 08:35 → SUATTDRO 13:35 → EDIPHOLD 13:35 → 3N 09-15 12:42 → ICU 09-18 13:58 → 3S 09-23 00:42
PROVIDERS: ATTEND Internal Medicine
CPT/HCPCS: 71010; 71045; 71260; 71275; 74019; 74020; 80048; 80053; 80069; 80101; 80202; 80301; 80307; 80320; 80324; 80345; 80346; 80353; 80358; 80361; 80365; 81001; 82055; 82533; 82550; 82784; 82805; 82948; 83036; 83605; 83735; 83880; 83935; 83992; 84145; 84300; 84443; 84484; 85025; 85610; 85651; 85730; 86140; 87040; 87088; 87205; 87324; 89055; 93005; 93306; 94640; 94660; 94667; 94668; 94761; 94762; 94799; 96361; 96365; 96366; 96367; 96375; 96376; 99285; A9270; C8929; G0431; G0434; G0479; G0480; G6040; J1561; J1650; J1940; J1956; J2060; J2270; J2405; J2920; J3370; J3480; J7030; J7040; J7050; Q9957; Q9967; S0073; XXXXX